=== PATIENT | female | born 1970 ===

== ENCOUNTER 2016-04-27 02:31 | Observation (INO) ==
--- NOTE | 2016-04-27 03:45 | Emergency Department Note ---
IBerna Emily, am scribing for, and in the presence of, Chico Puga MD 03: 30. Edd Kc Charles R, MD, personally performed the services described in this documentation, ascribed by Ameena Coronel in my presence, and it is both accurate and complete . Arrival - Arrival Chief Complaint: Extremity Problem Stated Complaint: swollen arm ED Nursing Triage Note: pt states after dialysis saturday left arm started swelling and is now very swollen and warm to touch. pt states it is very painful Mode of Arrival: Stretcher Limitations: No Limitations Source: Patient Time Seen by Provider: 04/27/16 02:54 - History of Present Illness HPI Narrative: Pt is a 45 y/o female who came to ED with c/o pain at graft site in left arm s/ p of accessed on Saturday, April 23, 2016, and worsened today. Pt notes Dr. Hauser did surgery in 2015. After accessing, she states she was using hot and cold compresses reduce pain and swelling. She describes the pain started when she felt a sharp, shooting pain and site has become more swollen since. Pt is limited her mobility of left arm due to pain. Onset (ago): day(s) Consistency: constant Severity: moderate Severity scale (1-10): 5 Quality: aching Allergies/Adverse Reactions: Allergies Allergy/AdvReac Type Severity Reaction Status Date / Time No Known Allergies Allergy Verified 12/22/15 10:49 Home Medications: Home Medications Medication Instructions Recorded Confirmed Type Metoclopramide Liquid [Reglan 10 mg PO ACHS #0 udcup 08/03/15 12/22/15 Rx Liquid] Pantoprazole Tab [Protonix Tab] 40 mg PO BID tablet 08/03/15 12/22/15 Rx Insulin Detemir [Levemir] 15 unit SUBCUT BEDTIME 09/05/15 12/22/15 History Calcium Acetate [Phoslo] 1,334 mg PO TID W/MEALS 09/07/15 12/22/15 History Carvedilol [Coreg] 6.25 mg PO BID 12/22/15 12/22/15 History HYDROcodone/ACETAMIN 7.5-325 1 tablet PO Q4H PRN #45 tablet 12/22/15 Rx [[place] 7.5-325] Review of System - Review of System 12 point system: reviewed and no additional remarkable complaints except as stated - Review of System Constitutional: Absent: fever Respiratory: Absent: respiratory distress Cardiovascular: Absent: chest pain Gastrointestinal: Absent: abdominal pain Musculoskeletal: Present: arm pain (graft pain in left arm; swollen, bruised). Absent: back pain, leg pain, neck pain Skin: Absent: rash Medical,Surgical,& Family Hx - Medical History Cardio: History of: Hypertension, Cardiovascular Problems (PT STATES ENLARGED HEART. DR ALVAREZ) Neurology: No history of: Seizures HEENT: History of: Eye Problem (GLASSES) Endocrine: History of: Diabetes Mellitus (IDDM) (LEVEMIR) No history of: Thyroid Disorder Respiratory: History of: Pneumonia (PAST HISTORY) Renal: History of: Dialysis (, [place], [place]), Renal Failure Gastrointestinal: History of: GERD Musculoskeletal: History of: Back/Neck Problems (BACK PAINS) Hematology: History of: Clotting Problems (LT KNEE ) Other: No history of: Cancer - Surgical History HEENT Surgeries: Surgical HX of: Eye Surgery (CATARACT SURGERY BILATERAL) Abdominal Surgeries: Surgical HX of: Cholecystectomy, EGD Reproductive Surgeries: Surgical HX of;: Section (X4) Orthopedic Surgeries: Surgical HX of;: Implanted Devices (PORT RIGHT SUBCLAVIAN) , Orthopedic Surgery (RT CARPAL TUNNEL) - Family History Family History: Reports;: Family Diabetes (dad,paternal grandma), Family Hypertension (mom) Denies;: Family Cancer, Family Heart Disease, Family Psychiatric Problems, Family Stroke - Social History Smoking Status: Never smoker Frequency of Alcohol Use: None Type of Drug Use: None Exam Vital Signs: Vital Signs Temperature 97.9 F 04/27/16 02:33 Pulse Rate 80 04/27/16 02:33 Respiratory Rate 16 04/27/16 02:33 Blood Pressure 192/81 04/27/16 02:33 O2 Sat by Pulse Oximetry 83 L 04/27/16 02:33 - General General appearance: alert, in no apparent distress - Head Head exam: Present: atraumatic, normocephalic - Eye Eye exam: Present: PERRL, EOMI - ENT ENT exam: Present: mucous membranes moist. Absent: mucous membranes dry - Neck Neck exam: Present: full ROM. Absent: tenderness - Chest Chest inspection: Present: symmetric chest wall rise. Absent: tenderness - Respiratory Respiratory exam: Present: normal lung sounds bilaterally. Absent: respiratory distress - Cardiovascular Cardiovascular exam: Present: regular rate, normal rhythm, normal heart sounds - Extremities Exam Extremities exam: Present: tenderness (hemotoma at graft site on left arm; good palpable pulses; swelling and ecchymosis and warm to touch from bicep to fistula ). Absent: full ROM (limited ROM due to pain), pedal edema - Neurological Exam Neurological exam: Present: alert, oriented X3, CN II-XII intact. Absent: motor sensory deficit - Psychiatric Psychiatric exam: Present: normal affect, normal mood - Skin Skin exam: Present: warm, dry Course - Consultations Consultation #1: Dr. Antonio III. will admit patient Time: 04:36 Results - Labs CBC & BMP: 04/27/16 03:34 04/27/16 03:34 Lab Results: I have reviewed the patients labs Labs: Laboratory Tests 04/27/16 03:34 RBC 2.70 L Hgb 8.8 L Hct 27.0 L Lymph % (Auto) 17.9 L Laboratory Tests 04/27/16 03:34 BUN 48 H Creatinine 6.50 H Glucose 251 H Alkaline Phosphatase 139 H Albumin 3.1 L Albumin/Globulin Ratio 0.9 L Laboratory Tests 04/27/16 03:34 BUN 48 H Creatinine 6.50 H Glucose 251 H Alkaline Phosphatase 139 H Albumin 3.1 L Albumin/Globulin Ratio 0.9 L Disposition Clinical Impression: Left upper extremity hematoma, Hemodialysis graft clot, ESRD (end stage renal disease) on dialysis Case discussed with: patient Disposition: Still a Patient Condition: Stable Time of Disposition: 04:51
[2016-04-27 03:49] LABS: Basophils % 0.3 % (0.0-0.8); Eosinophils # 0.2 10*3/uL (0.0-0.87); Hemoglobin 8.8 GM/DL (12.0-16.0); Immature Granulocytes % 0.3 %; Immature Granulocytes Absolute 0.03 #; Lymphocytes # 1.5 10*3/uL (1.4-4.0); Lymphocytes % 17.9 % (21.3-54.2); Mean Corpuscular HGB Conc 32.6 GM/DL (32-36); Mean Corpuscular Hemoglobin 33 PG (27-34); Mean Platelet Volume 10.6 FL (9.6-12.0); Monocytes # 0.5 10*3/uL (0.11-0.8); Neutrophils # 6.3 10*3/uL (1.4-7.4); Neutrophils % 73.5 % (38.7-73.9); Platelet Count 168 T/CUMM (130-400); Red Cell Distribution Width 15.2 % (9.3-17.3); White Blood Count 8.6 T/CUMM (4-12)
[2016-04-27 04:12] LABS: Albumin 3.1 G/DL (3.4-5.0); Bilirubin,Total 0.6 MG/DL (0.2-1.0); Calcium 8.5 MG/DL (8.5-10.1); Osmolality,Calculated 295.7 MOS/KG (273-304); Potassium 4.6 MMOL/L (3.5-5.1); Total Protein 6.4 G/DL (6.4-8.3)
[2016-04-27] MEDS ORDERED: HYDROmorphone 2 MG/1 ML VIAL IV STA (05:24)
[2016-04-27] MEDS ORDERED: HYDROmorphone 2 MG/1 ML VIAL ONE (05:26)
[2016-04-27] MEDS ORDERED: GLUCAGON 1 MG VIAL IM PRN (07:03)
[2016-04-27] MEDS ORDERED: DEXTROSE 50% 25 GM/50 ML VIAL IV PRN (07:03)
[2016-04-27] MEDS ORDERED: ACETAMINOPHEN 325 MG TABLET PO PRN (07:03)
[2016-04-27] MEDS: LACTATED RINGERS 1,000 ML IV SCH (07:35)
[2016-04-27] MEDS: PANTOPRAZOLE 40 MG VIAL IV SCH ×2 (07:35→08:00)
[2016-04-27] MEDS: ONDANSETRON 4 MG/2 ML VIAL IV PRN ×3 (07:36→22:22)
--- NOTE | 2016-04-27 08:04 | Ultrasound Report ---
US venous doppler UE LT Clinical Information: pain swelling Following left dialysis access placement approximately 5 months ago Comparison: None available Findings: There is a large echogenic collection within the left arm about the dialysis access site measuring up to 17.6 x 2.7 x 5.9 cm maximum dimension which is most compatible with a large hematoma. This compresses the adjacent vasculature. The jugular, subclavian, axillary veins appear patent. The mid and distal brachial vein appear patent. The proximal brachial vein is not seen. The cephalic vein is patent. There is reversed flow within the distal aspect of the graft which is of uncertain significance but may be related to significant progression from the overlying hematoma. Peak systolic velocities within the fistula are also minimal suggesting sluggish flow, also possibly due to compression symptoms from the overlying hematoma. Impression: Large hematoma within the left arm about the fistula compressing the underlying vasculature with decreased flow velocities within the fistula. No definite evidence of deep venous thrombosis within the remaining veins of the left upper extremity. PROCEDURE INTERPRETED AT [facility] DEPARTMENT OF RADIOLOGY Final Report Signed by: Kev Sheffield
[2016-04-27] MEDS ORDERED: CLINDAMYCIN INJ 900 MG in PREMIX 1 EACH IV ONE (08:49)
--- NOTE | 2016-04-27 08:56 | General Surg History&Physical ---
Assessment and Plan (1) Hematoma Status: Acute Assessment and plan: The patient's AV fistula was likely injured by the Access team resulting in a hematoma. This will require several weeks to heal before he can be used again. In order to get her dialysis access in the interim she will need a tunneled dialysis catheter. I have discussed this with the patient and I have discussed the risks, benefits, and alternatives of the operation. The expected outcomes have been reviewed. Patient would like to proceed with dialysis catheter placement and we will do this today. I did discuss the possibility of having to put in a groin catheter with the patient. Current Visit: Yes History of Present Illness Chief complaint: Hematoma left arm History of present illness: Ms. Howard is a 45 year old female who was on dialysis on Saturday and worked well but she developed a significant hematoma of her left arm after the dialysis needles were removed. She came to the ER and was admitted overnight to the surgical service. She still having a lot of pain in her arm but according to the nurses the hematoma has not been expanding the patient also says it is about the same. Home Medications Medication Instructions Recorded Confirmed Type Insulin Detemir [Levemir] 20 unit SUBCUT QAM 09/05/15 04/27/16 History Carvedilol [Coreg] 6.25 mg PO BID 12/22/15 04/27/16 History Calcium Carbonate Chew [Tums] 2 tablet PO TID W/MEALS 04/27/16 04/27/16 History cloNIDine TAB [Catapres Tab] 0.1 mg PO BID 04/27/16 04/27/16 History Allergies Allergy/AdvReac Type Severity Reaction Status Date / Time No Known Allergies Allergy Verified 12/22/15 10:49 Medical,Surgical,& Family Hx - Medical History Cardio: History of: Hypertension, Cardiovascular Problems (PT STATES ENLARGED HEART. DR ALVAREZ) Neurology: No history of: Seizures HEENT: History of: Eye Problem (GLASSES) Endocrine: History of: Diabetes Mellitus (IDDM) (LEVEMIR) No history of: Thyroid Disorder Respiratory: History of: Pneumonia (PAST HISTORY) Renal: History of: Dialysis (, [place], [place], [place]), Renal Failure Gastrointestinal: History of: GERD Musculoskeletal: History of: Back/Neck Problems (BACK PAINS) Hematology: History of: Clotting Problems (LT KNEE ) Other: No history of: Cancer - Surgical History HEENT Surgeries: Surgical HX of: Eye Surgery (CATARACT SURGERY BILATERAL) Abdominal Surgeries: Surgical HX of: Cholecystectomy, EGD Reproductive Surgeries: Surgical HX of;: Section (X4) Orthopedic Surgeries: Surgical HX of;: Implanted Devices (PORT RIGHT SUBCLAVIAN) , Orthopedic Surgery (RT CARPAL TUNNEL) - Family History Family History: Reports;: Family Diabetes (dad,paternal grandma), Family Hypertension (mom) Denies;: Family Cancer, Family Heart Disease, Family Psychiatric Problems, Family Stroke - Social History Smoking Status: Never smoker Frequency of Alcohol Use: None Type of Drug Use: None Exam - Constitutional Vitals: Period Temp Pulse Resp BP Sys/Vidal Pulse Ox Last 24 Hr 98.1 F 101 20 191/84 98 General appearance: no acute distress, over weight - Head Head exam: Present: normal inspection, normocephalic - Eye Eye exam: Present: EOMI Pupils: Present: SEVERO - ENT ENT exam: Present: normal exam Mouth exam: Present: normal external inspection, normal voice - Neck Neck exam: Present: normal inspection, trachea midline - Respiratory Respiratory exam: Present: clear to auscultation bilaterally. Absent: accessory muscle use, chest wall tenderness - Cardiovascular Cardiovascular exam: Present: RRR. Absent: systolic murmur, tachycardia - GI/Abdominal GI/Abdominal exam: Present: normal bowel sounds, soft. Absent: tenderness, rebound - Extremities Exam Extremities exam: Present: other (There is swelling and hematoma present in the entire upper arm on the left side. There is still a thrill in the fistula.) - Neurological Exam Neurological exam: Present: alert, oriented X3 Speech: Present: normal - Skin Skin exam: Present: normal color, warm - Constitutional Constitutional: Present: as per HPI - EENT Nose, mouth and throat: Present: as per HPI - Cardiovascular Cardiovascular: Present: as per HPI - Respiratory Respiratory: Present: as per HPI - Gastrointestinal Gastrointestinal: Present: as per HPI - Genitourinary Genitourinary: Present: as per HPI - Musculoskeletal Musculoskeletal: Present: as per HPI - Neurological Neurological: Present: as per HPI - Endocrine Endocrine: Present: as per HPI Hematologic/Lymphatic: Present: as per HPI Results - Labs CBC & BMP: 04/27/16 03:34 04/27/16 03:34
[2016-04-27] MEDS: cloNIDine 0.1 MG TABLET PO SCH ×2 (09:22→22:33)
[2016-04-27] MEDS: CARVEDILOL 6.25 MG TABLET PO SCH ×2 (09:23→22:33)
[2016-04-27] MEDS ORDERED: SODIUM CHLORIDE 0.9% 1,000 ML IV SCH (09:30)
[2016-04-27] MEDS: INSULIN GLARGINE 100 UNIT/ML SUBCUT SCH (09:32)
[2016-04-27] MEDS: INSULIN REGULAR 100 UNIT/ML SUBCUT SCH ×4 (09:32→22:38)
--- NOTE | 2016-04-27 09:34 | EKG Report ---
Stationary ECG Study [facility] Test Date: 04/27/2016 9:34:48 AM Pat Name: ERVIN BAIG Department: Room: 428 Gender: F [employer] Worker: KECIA : 1970 Requested by: Case Chowdhury Order Number: [id number] Reading MD: ANKUR GTZ Intervals [place] Rate: 68 P: 39 CO: 176 QRS: 59 QRSD: 90 T: 48 QT: 414 QTc: 431 Interpretive Statements SINUS RHYTHM MINOR NON-SPECIFIC ST-T ABNORMALITIES Electronically Signed On 04-30-16 06:28:18 CDT by ANKUR GTZ [email or web address]
[2016-04-27 10:05] LABS: INR 1.2; PT Patient Result 12.4 SECS
[2016-04-27] MEDS ORDERED: HEPARIN 5,000 UNIT/1 ML VIAL ONE (10:19)
[2016-04-27] MEDS ORDERED: BUPIVACAINE MPF 0.25% /EPI 30 ML VIAL ONE (10:19)
[2016-04-27] MEDS: SODIUM CHLORIDE 0.9% 250 ML IV SCH (10:31)
[2016-04-27] MEDS ORDERED: ONDANSETRON 4 MG/2 ML VIAL ONE (11:15)
--- NOTE | 2016-04-27 11:15 | Operative Note ---
Date of procedure: 04/27/16 Pre-op diagnosis: end-stage renal failure Post-op diagnosis: same Procedure: Preoperative diagnosis Renal failure with need for hemodialysis access Postoperative diagnosis Same Procedures performed 1. Right internal jugular vein tunneled hemodialysis catheter placement 2. Ultrasound guidance and interpretation of images 3. Fluoroscopic guidance and interpretation of images Findings The right internal jugular vein is compressible and it was accessed for hemodialysis access. The tip of the catheter was place in the right atrium. Patient tolerated procedure well and both ports worked well. Complications none apparent Specimen None Indications Renal failure with need for access for hemodialysis Description of procedure The patient was taken to the operating room and transferred to the operating table in the supine position. Pressure points are padded and SCDs placed lower extremity. Monitored anesthesia was administered and the neck was prepped and draped sterile fashion using chloride same. Preoperative antibiotics were administered and a timeout was performed. Ultrasound was used to identify the internal jugular vein and local anesthetic was infiltrated around the vein. Local anesthetic was also administered around the planned tract site down to the anterior chest wall below the clavicle. The vein was accessed on first stick and nonpulsatile venous blood was obtained. A wire was placed using Seldinger technique. An incision was made alongside the wire using a long blade scalpel and a separate incision below the clavicle was made with an 11 blade scalpel. A 19 cm catheter was tunneled from the chest incision into the neck wound and a dilator peel-away sheath was placed over the wire. The wire and dilator was removed and the catheter was placed to the peel-away sheath. The catheter was secured in place in the right atrium on fluoroscopic images. Both returned blood easily and were flushed with heparin. The catheter was secured in place using 3-0 nylon sutures and the neck incision was closed with 3 -0 nylon suture. Sterile dressings were applied. The patient was awakened from anesthesia and transferred to recovery. Postoperative plan Begin hemodialysis and obtained chest x-ray postop Implants: 19cm tunneled hemodialysis catheter Anesthesia: MAC, local Surgeon / Physician: Willie Hauser Estimated blood loss: minimal Specimens: none sent Condition: stable Disposition: PACU Results - Labs CBC & BMP: 04/27/16 03:34 04/27/16 03:34 Discharge Plan - Discharge Medications No Action Insulin Detemir [Levemir] 20 unit SUBCUT QAM Carvedilol [Coreg] 6.25 mg PO BID cloNIDine TAB [Catapres Tab] 0.1 mg PO BID Calcium Carbonate Chew [Tums] 2 tablet PO TID W/MEALS - Follow Up or Referral - Forms/Instructions
[2016-04-27] MEDS ORDERED: hydrALAZINE 20 MG/1 ML VIAL ONE (11:23)
[2016-04-27] MEDS ORDERED: ONDANSETRON 4 MG/2 ML VIAL IV PRN (11:28)
[2016-04-27] MEDS ORDERED: hydrALAZINE 20 MG/1 ML VIAL IV ONE (11:28)
[2016-04-27] MEDS ORDERED: fentaNYL 100 MCG/2 ML VIAL ONE (11:32)
[2016-04-27] MEDS ORDERED: MIDAZOLAM 2 MG/2 ML VIAL ONE (11:32)
--- NOTE | 2016-04-27 11:55 | XRay Report ---
Portable chest Date: 04/27/2016 Clinical history: Dialysis catheter placement Comparison: 04/27/2016 Technique: Portable AP supine chest Findings: Stable moderate cardiomegaly with the heart having a globular configuration. Insertion of right IJ venous dialysis catheter with tips in right atrium. No pneumothorax. Persistent diffuse parenchymal findings with small right pleural effusion. Stable mediastinum and osseous structures. Impression: Satisfactory insertion of right IJ venous dialysis catheter with tip in right atrium. No definite pneumothorax is identified on the supine film. Moderate cardiomegaly with a heart having a globular configuration which can be seen with cardiomyopathy or pericardial effusion. Mild CHF with minimal atelectasis and small right pleural effusion. PROCEDURE INTERPRETED AT [facility] DEPARTMENT OF RADIOLOGY Final Report Signed by: Dr. Chuyita Rosenberg
--- NOTE | 2016-04-27 13:07 | Anesthesia ---
Anesthesia Post OP - Post Ansesthetic Evaluation Patient seen in post op: Yes Resp: within normal limits CV: within normal limits Mental: within normal limits Temp: within normal limits [id number]: within normal limits Nausea and Vomiting: within normal limits Pain: within normal limits
[2016-04-27] MEDS: CALCIUM CARBONATE CHEW 500 MG TABLET PO SCH ×2 (13:55→17:12)
--- NOTE | 2016-04-27 15:28 | Nephrology Consult Note ---
History of Present Illness Chief complaint: End-stage renal disease in a patient admitted for hematoma of her AV shunt History of present illness: Ms. Howard is a 45 year old female with end-stage renal disease who dialyzes on a Saturday basis in [facility]. The patient was undergoing dialysis this past Saturday when she developed swelling in her left AV shunt. Patient was taken off of dialysis and at home she was applying cold compresses to her arm then yesterday the patient experienced some sharp pain in her arm and it started swelling again. She subsequently went to her local care provider and was transferred here for further evaluation and treatment. The patient is not on any blood thinning medicines. sHe does state that she has been having high blood pressure lately. Her dialysis access has been in place for several months now. ROS: Head -occasional headaches ENT - denies sore throat Lymphatics - denies lymphadenopathy Hematology - denies bleeding problems Heart - denies chest pain Lungs - denies shortness of breath Abdomen - denies abdominal pain Musculoskeletal - denies arthritis Skin - denies rash Neurology - denies stroke General -she has felt a little hot lately PE: General: in no acute distress Eyes: Pupils are round and reactive, conjunctivae are clear ENT: Nose is clear, O/P is benign Neck: Supple, no thyromegaly Lymphatics: No cervical, supraclavicular or axillary adenopathy Heart: Regular rate and rhythm, she has no lower extremity edema, her left arm is swollen with some darkish hue to the skin as well as a few purpura here and there. Lungs: Clear to auscultation anteriorly, chest expansion symmetric Abdomen: Soft, normoactive bowel sounds, no hepatomegaly Musculoskeletal: No joint erythema or effusions or joint asymmetry Skin: Normal turgor, normal hydration, no rash Neuro/Psych: Alert and cooperative with fair insight Home Medications Medication Instructions Recorded Confirmed Type Insulin Detemir [Levemir] 20 unit SUBCUT QAM 09/05/15 04/27/16 History Carvedilol [Coreg] 6.25 mg PO BID 12/22/15 04/27/16 History Calcium Carbonate Chew [Tums] 2 tablet PO TID W/MEALS 04/27/16 04/27/16 History cloNIDine TAB [Catapres Tab] 0.1 mg PO BID 04/27/16 04/27/16 History Allergies Allergy/AdvReac Type Severity Reaction Status Date / Time No Known Allergies Allergy Verified 12/22/15 10:49 Medical,Surgical,& Family Hx - Medical History Cardio: History of: Hypertension, Cardiovascular Problems (PT STATES ENLARGED HEART. DR ALVAREZ) Neurology: No history of: Seizures HEENT: History of: Eye Problem (GLASSES) Endocrine: History of: Diabetes Mellitus (IDDM) (LEVEMIR) No history of: Thyroid Disorder Respiratory: History of: Pneumonia (PAST HISTORY) Renal: History of: Dialysis (, [place], [place]), Renal Failure Gastrointestinal: History of: GERD Musculoskeletal: History of: Back/Neck Problems (BACK PAINS) Hematology: History of: Clotting Problems (LT KNEE ) Other: No history of: Cancer - Surgical History HEENT Surgeries: Surgical HX of: Eye Surgery (CATARACT SURGERY BILATERAL) Abdominal Surgeries: Surgical HX of: Cholecystectomy, EGD Reproductive Surgeries: Surgical HX of;: Section (X4) Orthopedic Surgeries: Surgical HX of;: Implanted Devices (PORT RIGHT SUBCLAVIAN) , Orthopedic Surgery (RT CARPAL TUNNEL) - Family History Family History: Reports;: Family Diabetes (dad,paternal grandma), Family Hypertension (mom) Denies;: Family Cancer, Family Heart Disease, Family Psychiatric Problems, Family Stroke - Social History Smoking Status: Never smoker Frequency of Alcohol Use: None Type of Drug Use: None Exam - Vital Signs Vital signs: Period Temp Pulse Resp BP Sys/Vidal Pulse Ox Last 24 Hr 97 F-98.1 F 65-101 16-20 172-223/84-112 95-100 Results - Labs CBC & BMP: 04/27/16 03:34 04/27/16 03:34 Assessment and Plan (1) Hypertension Status: Acute Assessment and plan: Patient's blood pressure has been going up lately, I am going to start her on 5 mg daily. Current Visit: Yes (2) ESRD (end stage renal disease) on dialysis Problem details: No indication for HD today. Status: Acute Assessment and plan: Patient has a tunneled catheter in place now, will plan on dialyzing her through that today. Her left arm shunt still has a bruit in place. Current Visit: Yes (3) Hematoma Status: Acute Assessment and plan: Management per Dr. Hauser Current Visit: Yes (4) Anemia Status: Acute Current Visit: No (5) Diabetes mellitus Status: Acute Assessment and plan: We will monitor with sliding scale Current Visit: No
[2016-04-27] MEDS: HYDROmorphone 2 MG/1 ML VIAL IV PRN ×2 (17:18→22:33)
[2016-04-27] MEDS: amLODIPine 5 MG TABLET PO SCH (22:32)
[2016-04-27] MEDS ORDERED: cloNIDine 0.1 MG TABLET PO PRN (23:57)
[2016-04-28] MEDS ORDERED: hydrALAZINE 20 MG/1 ML VIAL IV ONE (01:20)
[2016-04-28] MEDS ORDERED: CARVEDILOL 6.25 MG TABLET PO PRN (01:23)
[2016-04-28] MEDS ORDERED: cloNIDine 0.1 MG TABLET PO PRN (01:24)
[2016-04-28] MEDS: SODIUM CHLORIDE 0.9% 250 ML IV SCH ×2 (02:35→03:24)
[2016-04-28 05:24] LABS: Basophils % 0.4 % (0.0-0.8); Eosinophils # 0.1 10*3/uL (0.0-0.87); Eosinophils % 1.5 % (0.00-10.9); Hematocrit 28.2 VOL% (35.7-47.0); Hemoglobin 9.1 GM/DL (12.0-16.0); Immature Granulocytes % 0.4 %; Immature Granulocytes Absolute 0.03 #; Lymphocytes # 1.4 10*3/uL (1.4-4.0); Lymphocytes % 18.1 % (21.3-54.2); Mean Corpuscular HGB Conc 32.3 GM/DL (32-36); Mean Corpuscular Hemoglobin 33 PG (27-34); Mean Corpuscular Volume 102.2 FL (87-102); Mean Platelet Volume 10.5 FL (9.6-12.0); Monocytes # 0.4 10*3/uL (0.11-0.8); Monocytes % 5.1 % (1.7-12.7); Neutrophils # 5.8 10*3/uL (1.4-7.4); Neutrophils % 74.5 % (38.7-73.9); Platelet Count 157 T/CUMM (130-400); Red Blood Count 2.76 MC/CUMM (3.8-5.5); Red Cell Distribution Width 15.9 % (9.3-17.3); White Blood Count 7.8 T/CUMM (4-12)
[2016-04-28 05:39] LABS: Bilirubin,Total 0.8 MG/DL (0.2-1.0); Calcium 8.3 MG/DL (8.5-10.1); Magnesium 2.3 MG/DL (1.8-2.4); Osmolality,Calculated 289.1 MOS/KG (273-304); Potassium 4.4 MMOL/L (3.5-5.1); Total Protein 6.1 G/DL (6.4-8.3)
[2016-04-28] MEDS: LACTATED RINGERS 1,000 ML IV SCH (07:23)
[2016-04-28 08:17] VITALS: BP 169/78
[2016-04-28] MEDS: PANTOPRAZOLE 40 MG VIAL IV SCH (09:20)
[2016-04-28] MEDS: amLODIPine 5 MG TABLET PO SCH (09:21)
[2016-04-28] MEDS: CALCIUM CARBONATE CHEW 500 MG TABLET PO SCH (09:21)
[2016-04-28] MEDS: cloNIDine 0.1 MG TABLET PO SCH (09:21)
[2016-04-28] MEDS: CARVEDILOL 6.25 MG TABLET PO SCH (09:21)
[2016-04-28] MEDS: INSULIN GLARGINE 100 UNIT/ML SUBCUT SCH (09:21)
[2016-04-28] MEDS: INSULIN REGULAR 100 UNIT/ML SUBCUT SCH (09:44)
--- NOTE | 2016-04-28 10:59 | XRay Report ---
History: Shortness of breath Date: 04/28/2016 Study: Chest x-ray single view Comparison exam: Chest x-ray 04/27/2016 The right IJ central line is stable in position. There is continued cardiomegaly. The mediastinal contours are unchanged. The pulmonary vasculature is slightly prominent. There is some continued mild edema in the lower lung zones, though this is slightly improved. There is no new or worsening process. There is minimal bilateral pleural effusion which is the same or improved. Osseous structures are unchanged. Impression: Continued but improved CHF compared to the previous study PROCEDURE INTERPRETED AT [facility] DEPARTMENT OF RADIOLOGY Final Report Signed by: Dr. Mildred Card
--- NOTE | 2016-04-28 11:46 | Discharge Summary ---
Hospital Course - Hospital Course Hospital Course: This patient was admitted with hematoma of her arm access after dialysis on the left arm. She had a dialysis catheter placed and she had some blood pressure issues that were stabilized by her nephrology team. Her arm look better the next day and her pain was well-controlled. She was discharged home with plans for access through the dialysis catheter for the next 2 weeks and follow-up in clinic at that time to determine if her fistula is ready to start being use again. Diagnosis - Discharge Diagnosis (1) Hematoma Status: Acute Discharge Plan - Discharge Data Disposition: Disch To Home/Self Care Condition at Discharge: Stable Discharge Diet: advance to your usual diet Activity: resume usual activities as tolerated Hygiene: may shower Weight Bearing at Discharge: full weight bearing Driving: no restrictions Contact your physician if you experience:: fever over 101, Redness or swelling, Nausea/Vomiting, Shortness of breath, Bleeding, pain uncontrolled by pain medications - Discharge Medications New RX: HYDROcodone/ACETAMIN 7.5-325 [[place] 7.5-325] 1 tablet PO Q4H PRN #30 tablet PRN Reason: Pain Moderate (4-7) Continue RX: Insulin Detemir [Levemir] 20 unit SUBCUT QAM RX: Carvedilol [Coreg] 6.25 mg PO BID RX: cloNIDine TAB [Catapres Tab] 0.1 mg PO BID RX: Calcium Carbonate Chew [Tums] 2 tablet PO TID W/MEALS - Follow Up or Referral Follow Up: Willie Hauser MD [Physician] - 2 Weeks - Forms/Instructions Additional Discharge Instructions: The dialysis unit needs to use only the catheter until I see you back in clinic. Exam - Constitutional Vitals: Period Temp Pulse Resp BP Sys/Vidal Pulse Ox Last 24 Hr 96.6 F-98.4 F 61-83 16-20 146-225/71-104 95-100 General appearance: normal weight, no acute distress - Head Head exam: Present: normal inspection, normocephalic - Eye Eye exam: Present: EOMI Pupils: Present: SEVERO - ENT ENT exam: Present: normal exam - Neck Neck exam: Present: normal inspection - Respiratory Respiratory exam: Present: clear to auscultation bilaterally. Absent: accessory muscle use, chest wall tenderness - Cardiovascular Cardiovascular exam: Present: regular rate and rhythm. Absent: systolic murmur , tachycardia - GI/Abdominal GI/Abdominal exam: Present: soft. Absent: tenderness, rebound - Extremities Exam Extremities exam: Present: other (The left arm has a stable hematoma with a good thrill in the fistula still) - Neurological Exam Neurological exam: Present: alert, oriented X3 - Psychiatric Psychiatric exam: Present: normal affect, normal mood - Skin Skin exam: Present: normal color, warm Discharge Results Labs on day of discharge: Labs from last 24 hours 04/28/16 04/28/16 04/28/16 06:41 05:07 05:07 WBC 7.8 RBC 2.76 L Hgb 9.1 L Hct 28.2 L MCV 102.2 H MCH 33 MCHC 32.3 RDW 15.9 Plt Count 157 MPV 10.5 Neut % (Auto) 74.5 H Lymph % (Auto) 18.1 L [place] % (Auto) 5.1 Eos % (Auto) 1.5 Baso % (Auto) 0.4 Neut # (Auto) 5.8 Lymph # (Auto) 1.4 [place] # (Auto) 0.4 Eos # (Auto) 0.1 Baso # (Auto) 0.0 Immature Gran % 0.4 Nucleated RBC % 0.0 Immature Gran # 0.03 Nucleated RBCs # 0.00 Sodium 142 Potassium 4.4 Chloride 103 Carbon Dioxide 25 Anion Gap 18.4 H BUN 26 H Creatinine 4.40 H GFR Calculation 12 BUN/Creatinine Ratio 5.00 L Glucose 131 H POC Glucose 137 H Calculated Osmolality 289.1 Calcium 8.3 L Magnesium 2.3 Total Bilirubin 0.80 AST 14 ALT 29 Alkaline Phosphatase 106 Total Protein 6.1 L Albumin 3.0 L Globulin 3.1 Albumin/Globulin Ratio 0.9 L 04/27/16 04/27/16 04/27/16 22:36 18:24 12:26 WBC RBC Hgb Hct MCV MCH MCHC RDW Plt Count MPV Neut % (Auto) Lymph % (Auto) [place] % (Auto) Eos % (Auto) Baso % (Auto) Neut # (Auto) Lymph # (Auto) [place] # (Auto) Eos # (Auto) Baso # (Auto) Immature Gran % Nucleated RBC % Immature Gran # Nucleated RBCs # Sodium Potassium Chloride Carbon Dioxide Anion Gap BUN Creatinine GFR Calculation BUN/Creatinine Ratio Glucose POC Glucose 121 H 144 H 293 H Calculated Osmolality Calcium Magnesium Total Bilirubin AST ALT Alkaline Phosphatase Total Protein Albumin Globulin Albumin/Globulin Ratio DS: Provider Date of admission: 04/27/16 04:52 Primary care physician: Es Bean MD Attending physician on admission: Emiliano Antonio III., Consults: 04/27/16 07:03 Consult to Physician [CONS] Routine Comment: Dialysis Consulting Provider: Carlitos Newton Consulting Provider Notified: Yes When should Consulting Provider be notified: In am Consult to Specialist Group: Nephrology When should Consulting Provider be notified: Now Person Notified: RONA Date Notified: 04/27/16 Time Notified: 08:42 04/27/16 07:14 Consult to Pharmacy [CONS] Routine Reason for Pharmacy Consult: Adjust Meds Renal Funct 04/27/16 08:52 Consult to Anesthesiology [CONS] Routine Consulting Provider: Reason for Anesthesiology: Pre-op Clearance Discharging clinician: Willie Hauser MD Expected date of discharge: 04/28/16
== END 2016-04-28 13:10 | disposition home or self-care (01) | DRG 314 ==
LOC: EDUNIT# → EDBD → N.ED 02:31 → N.EDINP 04:52 → INTOOBSV 04:52 → N.4E 06:30
PROVIDERS: ADMIT Surgery; ATTEND Surgery

== ENCOUNTER 2017-07-13 19:26 | Inpatient (IN) ==
[2017-07-13] MEDS ORDERED: PROMETHAZINE 25 MG/1 ML VIAL IM PRN (21:48)
[2017-07-13] MEDS ORDERED: GLUCAGON 1 MG VIAL IM PRN (21:48)
[2017-07-13] MEDS ORDERED: DEXTROSE 50% 25 GM/50 ML VIAL IV PRN (21:48)
[2017-07-13] MEDS ORDERED: GENTAMICIN INJ 80 MG in PREMIX 1 EACH IV ONE (22:30)
[2017-07-13] MEDS ORDERED: VANCOMYCIN INJ 1,000 MG in SODIUM CHLORIDE 0.9% 250 ML IV ONE (23:00)
[2017-07-13] MEDS: INSULIN REGULAR 100 UNIT/ML SUBCUT SCH (23:32)
[2017-07-13] MEDS: cloNIDine 0.1 MG TABLET PO SCH (23:33)
[2017-07-14] MEDS ORDERED: FAMOTIDINE 20 MG TABLET PO ONE (07:51)
[2017-07-14] MEDS ORDERED: DIAZEPAM 5 MG TABLET PO ONE (07:51)
[2017-07-14 09:18] LABS: Basophils # 0.1 10*3/uL (0.0-0.2); Basophils % 0.8 % (0.0-0.8); Eosinophils # 0.3 10*3/uL (0.0-0.87); Eosinophils % 2.9 % (0.00-10.9); Hematocrit 39.8 VOL% (35.7-47.0); Hemoglobin 13.2 GM/DL (12.0-16.0); Immature Granulocytes % 0.6 %; Immature Granulocytes Absolute 0.06 #; Lymphocytes # 0.7 10*3/uL (1.4-4.0); Lymphocytes % 7.3 % (21.3-54.2); Mean Corpuscular HGB Conc 33.2 GM/DL (32-36); Mean Corpuscular Hemoglobin 34 PG (27-34); Mean Platelet Volume 9.7 FL (9.6-12.0); Monocytes # 0.7 10*3/uL (0.11-0.8); Monocytes % 6.6 % (1.7-12.7); Neutrophils % 81.8 % (38.7-73.9); Platelet Count 405 T/CUMM (130-400); Red Blood Count 3.94 MC/CUMM (3.8-5.5); Red Cell Distribution Width 12.9 % (9.3-17.3); White Blood Count 9.8 T/CUMM (4-12)
[2017-07-14] MEDS: INSULIN REGULAR 100 UNIT/ML SUBCUT SCH ×4 (09:34→22:05)
[2017-07-14 09:44] LABS: Calcium 7.5 MG/DL (8.5-10.1); Potassium 3.7 MMOL/L (3.5-5.1)
[2017-07-14] MEDS: PANTOPRAZOLE 40 MG TABLET PO SCH (09:45)
[2017-07-14] MEDS: CALCIUM CARBONATE CHEW 500 MG TABLET PO SCH ×3 (09:45→16:21)
[2017-07-14] MEDS: amLODIPine 10 MG TABLET PO SCH (09:51)
[2017-07-14] MEDS ORDERED: PROPOFOL 200 MG/20 ML VIAL IV ONE (11:09)
[2017-07-14] MEDS ORDERED: MIDAZOLAM 2 MG/2 ML VIAL ONE (11:09)
[2017-07-14] MEDS ORDERED: fentaNYL 100 MCG/2 ML VIAL ONE (11:09)
[2017-07-14 12:20] LABS: % Iron Saturation 40.7 % (18-50)
[2017-07-14 13:34] LABS: Parathyroid Hormone Intact 328.2 PG/ML (18.4-80.1)
[2017-07-14] MEDS: cloNIDine 0.1 MG TABLET PO SCH (22:14)
[2017-07-15 06:49] LABS: Basophils # 0.1 10*3/uL (0.0-0.2); Basophils % 1.1 % (0.0-0.8); Eosinophils # 0.4 10*3/uL (0.0-0.87); Eosinophils % 4.2 % (0.00-10.9); Hemoglobin 12.2 GM/DL (12.0-16.0); Immature Granulocytes % 0.6 %; Immature Granulocytes Absolute 0.05 #; Lymphocytes # 0.9 10*3/uL (1.4-4.0); Lymphocytes % 10.1 % (21.3-54.2); Mean Corpuscular HGB Conc 32.1 GM/DL (32-36); Mean Corpuscular Hemoglobin 33 PG (27-34); Mean Corpuscular Volume 103.5 FL (87-102); Mean Platelet Volume 9.5 FL (9.6-12.0); Monocytes # 0.7 10*3/uL (0.11-0.8); Monocytes % 8.1 % (1.7-12.7); Neutrophils # 6.4 10*3/uL (1.4-7.4); Neutrophils % 75.9 % (38.7-73.9); Platelet Count 368 T/CUMM (130-400); Red Blood Count 3.67 MC/CUMM (3.8-5.5); Red Cell Distribution Width 12.8 % (9.3-17.3); White Blood Count 8.4 T/CUMM (4-12)
[2017-07-15 07:14] LABS: Albumin 1.6 G/DL (3.4-5.0); Calcium 7.3 MG/DL (8.5-10.1); Potassium 3.9 MMOL/L (3.5-5.1)
[2017-07-15] MEDS: INSULIN REGULAR 100 UNIT/ML SUBCUT SCH ×4 (07:45→21:23)
[2017-07-15] MEDS: amLODIPine 10 MG TABLET PO SCH (08:32)
[2017-07-15] MEDS: CALCIUM CARBONATE CHEW 500 MG TABLET PO SCH ×3 (08:33→18:51)
[2017-07-15] MEDS: MORPHINE 4 MG/1 ML VIAL IV PRN ×2 (08:33→22:36)
[2017-07-15] MEDS: PANTOPRAZOLE 40 MG TABLET PO SCH (08:33)
[2017-07-15] MEDS: CALCITRIOL 0.25 MCG CAPSULE PO SCH (09:40)
[2017-07-15] MEDS: cloNIDine 0.1 MG TABLET PO SCH ×3 (09:40→20:31)
[2017-07-15] MEDS ORDERED: VANCOMYCIN INJ 750 MG in SODIUM CHLORIDE 0.9% 250 ML IV PRN (15:20)
[2017-07-15] MEDS ORDERED: GENTAMICIN INJ 120 MG in PREMIX 1 EACH IV PRN (15:21)
[2017-07-15] MEDS ORDERED: VANCOMYCIN INJ 1,000 MG in SODIUM CHLORIDE 0.9% 250 ML IV ONE (16:00)
[2017-07-15] MEDS: CLINDAMYCIN INJ 600 MG in PREMIX 1 EACH IV SCH ×2 (16:49→22:37)
[2017-07-15] MEDS ORDERED: GENTAMICIN INJ 160 MG in SODIUM CHLORIDE 0.9% 100 ML IV ONE (17:00)
[2017-07-16] MEDS: ONDANSETRON 4 MG/2 ML VIAL IV PRN (04:41)
[2017-07-16 05:38] LABS: Basophils # 0.1 10*3/uL (0.0-0.2); Basophils % 0.7 % (0.0-0.8); Eosinophils # 0.4 10*3/uL (0.0-0.87); Hematocrit 38.1 VOL% (35.7-47.0); Hemoglobin 12.6 GM/DL (12.0-16.0); Immature Granulocytes % 0.6 %; Immature Granulocytes Absolute 0.05 #; Lymphocytes # 0.9 10*3/uL (1.4-4.0); Lymphocytes % 10.6 % (21.3-54.2); Mean Corpuscular HGB Conc 33.1 GM/DL (32-36); Mean Corpuscular Hemoglobin 33 PG (27-34); Mean Corpuscular Volume 100.8 FL (87-102); Mean Platelet Volume 9.6 FL (9.6-12.0); Monocytes # 0.7 10*3/uL (0.11-0.8); Monocytes % 8.8 % (1.7-12.7); Neutrophils # 6.2 10*3/uL (1.4-7.4); Neutrophils % 74.3 % (38.7-73.9); Platelet Count 408 T/CUMM (130-400); Red Blood Count 3.78 MC/CUMM (3.8-5.5); Red Cell Distribution Width 12.8 % (9.3-17.3); White Blood Count 8.3 T/CUMM (4-12)
[2017-07-16 05:51] LABS: Albumin 1.6 G/DL (3.4-5.0); Calcium 7.7 MG/DL (8.5-10.1); Osmolality,Calculated 283.1 MOS/KG (273-304); Potassium 3.9 MMOL/L (3.5-5.1)
[2017-07-16] MEDS: CALCITRIOL 0.25 MCG CAPSULE PO SCH (09:23)
[2017-07-16] MEDS: CALCIUM CARBONATE CHEW 500 MG TABLET PO SCH ×3 (09:23→17:31)
[2017-07-16] MEDS: amLODIPine 10 MG TABLET PO SCH (09:23)
[2017-07-16] MEDS: PANTOPRAZOLE 40 MG TABLET PO SCH (09:23)
[2017-07-16] MEDS: cloNIDine 0.1 MG TABLET PO SCH ×3 (09:23→20:21)
[2017-07-16] MEDS: INSULIN REGULAR 100 UNIT/ML SUBCUT SCH ×4 (09:23→20:22)
[2017-07-16] MEDS: CLINDAMYCIN INJ 600 MG in PREMIX 1 EACH IV SCH ×3 (09:24→23:15)
[2017-07-16] MEDS: SODIUM HYPOCHLORITE 0.25% IRRIG 473 ML BOTTLE TOP SCH (16:40)
[2017-07-17 07:53] LABS: Basophils # 0.1 10*3/uL (0.0-0.2); Basophils % 0.7 % (0.0-0.8); Eosinophils # 0.5 10*3/uL (0.0-0.87); Eosinophils % 6.2 % (0.00-10.9); Hemoglobin 11.3 GM/DL (12.0-16.0); Immature Granulocytes % 0.6 %; Immature Granulocytes Absolute 0.05 #; Lymphocytes # 0.8 10*3/uL (1.4-4.0); Lymphocytes % 9.6 % (21.3-54.2); Mean Corpuscular HGB Conc 32.3 GM/DL (32-36); Mean Corpuscular Hemoglobin 33 PG (27-34); Mean Corpuscular Volume 102.3 FL (87-102); Mean Platelet Volume 9.4 FL (9.6-12.0); Monocytes # 0.7 10*3/uL (0.11-0.8); Monocytes % 8.3 % (1.7-12.7); Neutrophils % 74.6 % (38.7-73.9); Platelet Count 354 T/CUMM (130-400); Red Blood Count 3.42 MC/CUMM (3.8-5.5); Red Cell Distribution Width 12.9 % (9.3-17.3); White Blood Count 8.1 T/CUMM (4-12)
[2017-07-17 08:29] LABS: Albumin 1.5 G/DL (3.4-5.0); Calcium 7.3 MG/DL (8.5-10.1); Gentamicin,Random 3.4 UG/ML; Osmolality,Calculated 284.2 MOS/KG (273-304); Vancomycin,Random 17.9 UG/ML
[2017-07-17] MEDS: amLODIPine 10 MG TABLET PO SCH (09:00)
[2017-07-17] MEDS: CALCIUM CARBONATE CHEW 500 MG TABLET PO SCH ×3 (09:00→16:31)
[2017-07-17] MEDS: CALCITRIOL 0.25 MCG CAPSULE PO SCH (09:00)
[2017-07-17] MEDS: cloNIDine 0.1 MG TABLET PO SCH ×3 (09:00→21:27)
[2017-07-17] MEDS: CLINDAMYCIN INJ 600 MG in PREMIX 1 EACH IV SCH ×3 (09:01→23:54)
[2017-07-17] MEDS: PANTOPRAZOLE 40 MG TABLET PO SCH (09:01)
[2017-07-17] MEDS: INSULIN REGULAR 100 UNIT/ML SUBCUT SCH ×4 (09:01→21:33)
[2017-07-17] MEDS: SODIUM HYPOCHLORITE 0.25% IRRIG 473 ML BOTTLE TOP SCH (09:55)
[2017-07-17] MEDS ORDERED: VANCOMYCIN INJ 750 MG in SODIUM CHLORIDE 0.9% 250 ML IV ONE (15:00)
[2017-07-18] MEDS: ONDANSETRON 4 MG/2 ML VIAL IV PRN (03:25)
[2017-07-18] MEDS: CLINDAMYCIN INJ 600 MG in PREMIX 1 EACH IV SCH ×2 (08:13→16:43)
[2017-07-18] MEDS: CALCIUM CARBONATE CHEW 500 MG TABLET PO SCH ×3 (08:28→16:43)
[2017-07-18] MEDS: cloNIDine 0.1 MG TABLET PO SCH ×3 (08:28→20:58)
[2017-07-18] MEDS: amLODIPine 10 MG TABLET PO SCH (08:28)
[2017-07-18] MEDS: PANTOPRAZOLE 40 MG TABLET PO SCH (08:29)
[2017-07-18] MEDS: CALCITRIOL 0.25 MCG CAPSULE PO SCH (08:29)
[2017-07-18] MEDS ORDERED: MIDAZOLAM 2 MG/2 ML VIAL IV ONE (08:34)
[2017-07-18] MEDS ORDERED: fentaNYL 100 MCG/2 ML VIAL IV ONE (08:34)
[2017-07-18] MEDS ORDERED: GENTAMICIN INJ 120 MG in PREMIX 1 EACH IV ONE (09:00)
[2017-07-18] MEDS ORDERED: SODIUM CHLORIDE 0.45% 1,000 ML IV SCH (09:30)
[2017-07-18] MEDS: INSULIN REGULAR 100 UNIT/ML SUBCUT SCH ×4 (09:55→21:02)
[2017-07-18] MEDS ORDERED: DIAZEPAM 5 MG TABLET PO ONE (10:00)
[2017-07-18] MEDS: SODIUM HYPOCHLORITE 0.25% IRRIG 473 ML BOTTLE TOP SCH (10:45)
[2017-07-18] MEDS ORDERED: HEPARIN/NACL 0.9% 2 UNITS/ML 3,000 ML IV ONE (12:32)
[2017-07-18] MEDS ORDERED: fentaNYL 100 MCG/2 ML VIAL ONE (13:48)
[2017-07-18] MEDS ORDERED: MIDAZOLAM 2 MG/2 ML VIAL ONE (13:48)
[2017-07-18] MEDS ORDERED: HEPARIN 5,000 UNIT/1 ML VIAL ONE (14:32)
[2017-07-18] MEDS ORDERED: HEPARIN 5,000 UNIT/1 ML VIAL IV ONE ×2 (14:35→15:45)
[2017-07-18] MEDS ORDERED: NITROGLYCERIN DRIP 50 MG/250 ML BOTTLE IV ONE (15:31)
[2017-07-18] MEDS ORDERED: HEPARIN 1,000 UNIT/1 ML VIAL ONE (15:40)
[2017-07-18] MEDS: CLOPIDOGREL 75 MG TABLET PO SCH (18:47)
[2017-07-18] MEDS: MORPHINE 4 MG/1 ML VIAL IV PRN (21:03)
[2017-07-19] MEDS: CLINDAMYCIN INJ 600 MG in PREMIX 1 EACH IV SCH ×4 (00:58→22:49)
[2017-07-19 06:47] LABS: Basophils # 0.1 10*3/uL (0.0-0.2); Basophils % 0.7 % (0.0-0.8); Eosinophils # 0.7 10*3/uL (0.0-0.87); Eosinophils % 8.3 % (0.00-10.9); Hematocrit 38.3 VOL% (35.7-47.0); Hemoglobin 12.5 GM/DL (12.0-16.0); Immature Granulocytes % 0.8 %; Immature Granulocytes Absolute 0.07 #; Lymphocytes # 0.8 10*3/uL (1.4-4.0); Mean Corpuscular HGB Conc 32.6 GM/DL (32-36); Mean Corpuscular Hemoglobin 33 PG (27-34); Mean Corpuscular Volume 102.1 FL (87-102); Mean Platelet Volume 9.2 FL (9.6-12.0); Monocytes # 0.7 10*3/uL (0.11-0.8); Monocytes % 8.7 % (1.7-12.7); Neutrophils % 71.5 % (38.7-73.9); Platelet Count 395 T/CUMM (130-400); Red Blood Count 3.75 MC/CUMM (3.8-5.5); Red Cell Distribution Width 12.7 % (9.3-17.3); White Blood Count 8.3 T/CUMM (4-12)
[2017-07-19 07:11] LABS: Albumin 1.6 G/DL (3.4-5.0); Calcium 7.5 MG/DL (8.5-10.1); Osmolality,Calculated 276.5 MOS/KG (273-304); Potassium 4.7 MMOL/L (3.5-5.1)
[2017-07-19] MEDS: CALCITRIOL 0.25 MCG CAPSULE PO SCH (08:02)
[2017-07-19] MEDS: cloNIDine 0.1 MG TABLET PO SCH ×3 (08:03→21:54)
[2017-07-19] MEDS: CLOPIDOGREL 75 MG TABLET PO SCH (08:03)
[2017-07-19] MEDS: ONDANSETRON 4 MG/2 ML VIAL IV PRN (08:03)
[2017-07-19] MEDS: CALCIUM CARBONATE CHEW 500 MG TABLET PO SCH ×3 (08:03→16:06)
[2017-07-19] MEDS: amLODIPine 10 MG TABLET PO SCH (08:03)
[2017-07-19] MEDS: PANTOPRAZOLE 40 MG TABLET PO SCH (08:03)
[2017-07-19] MEDS: INSULIN REGULAR 100 UNIT/ML SUBCUT SCH ×4 (08:04→21:54)
[2017-07-19] MEDS: SODIUM HYPOCHLORITE 0.25% IRRIG 473 ML BOTTLE TOP SCH (19:21)
[2017-07-20 04:54] LABS: Basophils # 0.1 10*3/uL (0.0-0.2); Basophils % 0.9 % (0.0-0.8); Eosinophils # 0.6 10*3/uL (0.0-0.87); Hematocrit 37.3 VOL% (35.7-47.0); Hemoglobin 11.9 GM/DL (12.0-16.0); Immature Granulocytes % 1.4 %; Immature Granulocytes Absolute 0.12 #; Lymphocytes # 0.7 10*3/uL (1.4-4.0); Mean Corpuscular HGB Conc 31.9 GM/DL (32-36); Mean Corpuscular Hemoglobin 34 PG (27-34); Mean Corpuscular Volume 105.4 FL (87-102); Monocytes # 0.9 10*3/uL (0.11-0.8); Monocytes % 10.1 % (1.7-12.7); Neutrophils # 6.3 10*3/uL (1.4-7.4); Neutrophils % 72.6 % (38.7-73.9); Platelet Count 376 T/CUMM (130-400); Red Blood Count 3.54 MC/CUMM (3.8-5.5); Red Cell Distribution Width 12.9 % (9.3-17.3); White Blood Count 8.7 T/CUMM (4-12)
[2017-07-20 05:15] LABS: Albumin 1.4 G/DL (3.4-5.0); Calcium 7.6 MG/DL (8.5-10.1); Osmolality,Calculated 277.5 MOS/KG (273-304); Potassium 3.9 MMOL/L (3.5-5.1)
[2017-07-20] MEDS: CLINDAMYCIN INJ 600 MG in PREMIX 1 EACH IV SCH ×3 (06:31→23:20)
[2017-07-20] MEDS ORDERED: VANCOMYCIN INJ 750 MG in SODIUM CHLORIDE 0.9% 250 ML IV ONE (09:00)
[2017-07-20] MEDS: CLOPIDOGREL 75 MG TABLET PO SCH (10:09)
[2017-07-20] MEDS: CALCIUM CARBONATE CHEW 500 MG TABLET PO SCH ×3 (10:09→15:45)
[2017-07-20] MEDS: amLODIPine 10 MG TABLET PO SCH (10:09)
[2017-07-20] MEDS: cloNIDine 0.1 MG TABLET PO SCH ×3 (10:12→20:41)
[2017-07-20] MEDS: ACETAMINOPHEN 325 MG TABLET PO PRN (10:12)
[2017-07-20] MEDS: INSULIN REGULAR 100 UNIT/ML SUBCUT SCH ×4 (10:12→20:42)
[2017-07-20] MEDS: PANTOPRAZOLE 40 MG TABLET PO SCH (10:12)
[2017-07-20] MEDS: CALCITRIOL 0.25 MCG CAPSULE PO SCH (10:13)
[2017-07-20] MEDS: SODIUM HYPOCHLORITE 0.25% IRRIG 473 ML BOTTLE TOP SCH (10:13)
[2017-07-21] MEDS: ACETAMINOPHEN 325 MG TABLET PO PRN (02:55)
[2017-07-21 04:00] LABS: Basophils # 0.1 10*3/uL (0.0-0.2); Basophils % 0.5 % (0.0-0.8); Eosinophils # 0.7 10*3/uL (0.0-0.87); Eosinophils % 7.7 % (0.00-10.9); Hemoglobin 11.4 GM/DL (12.0-16.0); Immature Granulocytes % 1.2 %; Immature Granulocytes Absolute 0.11 #; Lymphocytes # 0.7 10*3/uL (1.4-4.0); Lymphocytes % 7.2 % (21.3-54.2); Mean Corpuscular HGB Conc 33.5 GM/DL (32-36); Mean Corpuscular Hemoglobin 34 PG (27-34); Monocytes # 0.9 10*3/uL (0.11-0.8); Monocytes % 9.2 % (1.7-12.7); Neutrophils # 6.9 10*3/uL (1.4-7.4); Neutrophils % 74.2 % (38.7-73.9); Platelet Count 368 T/CUMM (130-400); Red Cell Distribution Width 12.7 % (9.3-17.3); White Blood Count 9.3 T/CUMM (4-12)
[2017-07-21 04:28] LABS: Albumin 1.4 G/DL (3.4-5.0); Calcium 7.7 MG/DL (8.5-10.1); Osmolality,Calculated 274.5 MOS/KG (273-304); Potassium 3.3 MMOL/L (3.5-5.1)
[2017-07-21] MEDS: CLINDAMYCIN INJ 600 MG in PREMIX 1 EACH IV SCH ×3 (06:30→23:29)
[2017-07-21] MEDS: CALCITRIOL 0.25 MCG CAPSULE PO SCH (08:26)
[2017-07-21] MEDS: amLODIPine 10 MG TABLET PO SCH (08:26)
[2017-07-21] MEDS: CALCIUM CARBONATE CHEW 500 MG TABLET PO SCH ×3 (08:26→17:54)
[2017-07-21] MEDS: cloNIDine 0.1 MG TABLET PO SCH ×3 (08:26→20:39)
[2017-07-21] MEDS: PANTOPRAZOLE 40 MG TABLET PO SCH (08:27)
[2017-07-21] MEDS: CLOPIDOGREL 75 MG TABLET PO SCH (08:27)
[2017-07-21] MEDS: INSULIN REGULAR 100 UNIT/ML SUBCUT SCH ×4 (08:27→20:40)
[2017-07-21] MEDS ORDERED: GENTAMICIN INJ 120 MG in PREMIX 1 EACH IV ONE (12:00)
[2017-07-21] MEDS: SODIUM HYPOCHLORITE 0.25% IRRIG 473 ML BOTTLE TOP SCH (12:05)
[2017-07-22] MEDS: CALCIUM CARBONATE CHEW 500 MG TABLET PO SCH ×2 (09:41→13:49)
[2017-07-22] MEDS: CALCITRIOL 0.25 MCG CAPSULE PO SCH (09:42)
[2017-07-22] MEDS: amLODIPine 10 MG TABLET PO SCH (09:42)
[2017-07-22] MEDS: CLINDAMYCIN INJ 600 MG in PREMIX 1 EACH IV SCH (09:42)
[2017-07-22] MEDS: CLOPIDOGREL 75 MG TABLET PO SCH (09:42)
[2017-07-22] MEDS: PANTOPRAZOLE 40 MG TABLET PO SCH (09:42)
[2017-07-22] MEDS: cloNIDine 0.1 MG TABLET PO SCH (09:42)
[2017-07-22] MEDS: INSULIN REGULAR 100 UNIT/ML SUBCUT SCH ×2 (10:11→13:49)
[2017-07-22 12:19] VITALS: BP 130/78
[2017-07-23] MEDS ORDERED: VANCOMYCIN INJ 750 MG in SODIUM CHLORIDE 0.9% 250 ML IV ONE (09:00)
== END 2017-07-22 15:35 | disposition home or self-care (01) | DRG 252 ==
LOC: EDBD → EDUNIT# → N.ED 19:26 → N.EDINP 20:23 → N.3E 22:03
PROVIDERS: ADMIT Surgery; ATTEND Surgery

== ENCOUNTER 2017-08-05 13:29 | Inpatient (IN) ==
[2017-08-05] MEDS ORDERED: ACETAMINOPHEN 325 MG TABLET PO PRN (13:51)
[2017-08-05] MEDS ORDERED: DEXTROSE 50% 25 GM/50 ML VIAL IV PRN (13:56)
[2017-08-05] MEDS ORDERED: GLUCAGON 1 MG VIAL IM PRN (13:56)
[2017-08-05] MEDS: HEPARIN 5,000 UNIT/1 ML VIAL SUBCUT SCH ×2 (16:25→22:31)
[2017-08-05] MEDS: INSULIN LISPRO 100 UNIT/ML SUBCUT SCH ×2 (16:34→20:44)
[2017-08-05] MEDS: CLINDAMYCIN INJ 600 MG in PREMIX 1 EACH IV SCH ×2 (16:49→22:31)
[2017-08-05 17:00] LABS: Basophils # 0.1 10*3/uL (0.0-0.2); Basophils % 0.8 % (0.0-0.8); Eosinophils # 0.6 10*3/uL (0.0-0.87); Eosinophils % 5.6 % (0.00-10.9); Hematocrit 38.1 VOL% (35.7-47.0); Hemoglobin 12.2 GM/DL (12.0-16.0); Immature Granulocytes Absolute 0.11 #; Lymphocytes % 8.7 % (21.3-54.2); Mean Corpuscular Hemoglobin 33 PG (27-34); Mean Corpuscular Volume 101.9 FL (87-102); Monocytes # 0.9 10*3/uL (0.11-0.8); Monocytes % 7.7 % (1.7-12.7); Neutrophils # 8.4 10*3/uL (1.4-7.4); Neutrophils % 76.2 % (38.7-73.9); Platelet Count 409 T/CUMM (130-400); Red Blood Count 3.74 MC/CUMM (3.8-5.5); Red Cell Distribution Width 13.4 % (9.3-17.3)
[2017-08-05 17:34] LABS: Alanine Aminotransferase 33 U/L (13-56); Albumin 2.1 G/DL (3.4-5.0); Alkaline Phosphatase 155 U/L (45-117); Aspartate Amino Transferase 21 U/L (0-37); Bilirubin,Total < 0.39 MG/DL (0.2-1.0); Blood Urea Nitrogen 53 MG/DL (7-18); Calcium 8.9 MG/DL (8.5-10.1); Glucose 182 MG/DL (74-106); Osmolality,Calculated 288.1 MOS/KG (273-304); Potassium 3.8 MMOL/L (3.5-5.1); Sodium 135 MMOL/L (136-145); Total Protein 6.9 G/DL (6.4-8.3)
[2017-08-05] MEDS: PIPERACILLIN/TAZOBACTAM 3,375 MG in SODIUM CHLORIDE 0.9% 100 ML IV SCH (18:04)
[2017-08-05] MEDS: CALCIUM CARBONATE CHEW 500 MG TABLET PO SCH (18:05)
[2017-08-05] MEDS: cloNIDine 0.1 MG TABLET PO SCH (20:39)
[2017-08-05] MEDS: MORPHINE 4 MG/1 ML VIAL IV PRN (21:58)
[2017-08-06] MEDS: PIPERACILLIN/TAZOBACTAM 3,375 MG in SODIUM CHLORIDE 0.9% 100 ML IV SCH ×2 (03:50→19:34)
[2017-08-06] MEDS: CLINDAMYCIN INJ 600 MG in PREMIX 1 EACH IV SCH ×3 (05:57→22:52)
[2017-08-06] MEDS: HEPARIN 5,000 UNIT/1 ML VIAL SUBCUT SCH ×3 (06:17→22:52)
[2017-08-06 07:43] LABS: Basophils # 0.1 10*3/uL (0.0-0.2); Basophils % 0.9 % (0.0-0.8); Eosinophils # 0.5 10*3/uL (0.0-0.87); Eosinophils % 7.7 % (0.00-10.9); Hematocrit 33.1 VOL% (35.7-47.0); Immature Granulocytes % 1.3 %; Immature Granulocytes Absolute 0.08 #; Lymphocytes # 0.9 10*3/uL (1.4-4.0); Lymphocytes % 13.6 % (21.3-54.2); Mean Corpuscular HGB Conc 29.3 GM/DL (32-36); Mean Corpuscular Hemoglobin 33 PG (27-34); Mean Platelet Volume 10.2 FL (9.6-12.0); Monocytes # 0.5 10*3/uL (0.11-0.8); Monocytes % 7.4 % (1.7-12.7); Neutrophils # 4.4 10*3/uL (1.4-7.4); Neutrophils % 69.1 % (38.7-73.9); Platelet Count 339 T/CUMM (130-400); Red Cell Distribution Width 14.6 % (9.3-17.3)
[2017-08-06] MEDS ORDERED: hydrALAZINE 25 MG TABLET ONE (07:44)
[2017-08-06 07:47] LABS: Hemoglobin 9.7 GM/DL (12.0-16.0); Red Blood Count 2.93 MC/CUMM (3.8-5.5); White Blood Count 6.4 T/CUMM (4-12)
[2017-08-06] MEDS: PANTOPRAZOLE 40 MG TABLET PO SCH ×2 (07:49→11:24)
[2017-08-06] MEDS: INSULIN LISPRO 100 UNIT/ML SUBCUT SCH ×4 (07:50→21:16)
[2017-08-06] MEDS ORDERED: BUPIVACAINE MPF 0.25% 30 ML VIAL ONE (07:56)
[2017-08-06] MEDS ORDERED: LIDOCAINE 1% 20 ML VIAL ONE (07:57)
[2017-08-06 08:05] LABS: Platelet Estimate Adequate
[2017-08-06 09:26] LABS: Calcium 8.6 MG/DL (8.5-10.1); Osmolality,Calculated 290.1 MOS/KG (273-304); Potassium 3.6 MMOL/L (3.5-5.1)
[2017-08-06] MEDS ORDERED: PROPOFOL 200 MG/20 ML VIAL IV ONE (09:52)
[2017-08-06] MEDS ORDERED: ONDANSETRON 4 MG/2 ML VIAL ONE ×2 (09:53→09:54)
[2017-08-06] MEDS ORDERED: SEVOFLURANE 1 UNIT/15 MINUTE INH ONE (09:53)
[2017-08-06] MEDS ORDERED: MIDAZOLAM 2 MG/2 ML VIAL ONE (09:53)
[2017-08-06] MEDS ORDERED: fentaNYL 100 MCG/2 ML VIAL ONE (09:53)
[2017-08-06] MEDS ORDERED: PHENYLEPHRINE 1 MG/10 ML SYRINGE IV ONE (09:54)
[2017-08-06] MEDS: CALCIUM CARBONATE CHEW 500 MG TABLET PO SCH ×3 (11:23→19:34)
[2017-08-06] MEDS: CLOPIDOGREL 75 MG TABLET PO SCH (11:24)
[2017-08-06] MEDS: amLODIPine 10 MG TABLET PO SCH (11:47)
[2017-08-06] MEDS: CALCITRIOL 0.25 MCG CAPSULE PO SCH (14:58)
[2017-08-06] MEDS: cloNIDine 0.1 MG TABLET PO SCH (21:16)
[2017-08-07] MEDS: PIPERACILLIN/TAZOBACTAM 3,375 MG in SODIUM CHLORIDE 0.9% 100 ML IV SCH ×2 (04:41→15:53)
[2017-08-07] MEDS: CLINDAMYCIN INJ 600 MG in PREMIX 1 EACH IV SCH ×3 (06:07→22:19)
[2017-08-07] MEDS: HEPARIN 5,000 UNIT/1 ML VIAL SUBCUT SCH ×3 (06:07→22:19)
[2017-08-07] MEDS: MORPHINE 4 MG/1 ML VIAL IV PRN ×2 (06:40→19:18)
[2017-08-07] MEDS: INSULIN LISPRO 100 UNIT/ML SUBCUT SCH ×4 (09:10→22:20)
[2017-08-07] MEDS: PANTOPRAZOLE 40 MG TABLET PO SCH (09:12)
[2017-08-07] MEDS: amLODIPine 10 MG TABLET PO SCH (09:12)
[2017-08-07] MEDS: CALCIUM CARBONATE CHEW 500 MG TABLET PO SCH ×3 (09:12→16:49)
[2017-08-07] MEDS: CLOPIDOGREL 75 MG TABLET PO SCH (09:12)
[2017-08-07] MEDS: CALCITRIOL 0.25 MCG CAPSULE PO SCH (11:02)
[2017-08-07] MEDS: ONDANSETRON 4 MG/2 ML VIAL IV PRN (13:21)
[2017-08-07] MEDS: cloNIDine 0.1 MG TABLET PO SCH (22:19)
[2017-08-08] MEDS: MORPHINE 4 MG/1 ML VIAL IV PRN (00:56)
[2017-08-08] MEDS: PIPERACILLIN/TAZOBACTAM 3,375 MG in SODIUM CHLORIDE 0.9% 100 ML IV SCH ×2 (03:45→17:21)
[2017-08-08] MEDS: HEPARIN 5,000 UNIT/1 ML VIAL SUBCUT SCH ×3 (06:26→22:09)
[2017-08-08] MEDS: CLINDAMYCIN INJ 600 MG in PREMIX 1 EACH IV SCH ×3 (07:59→22:09)
[2017-08-08] MEDS: INSULIN LISPRO 100 UNIT/ML SUBCUT SCH ×4 (09:15→20:47)
[2017-08-08] MEDS: CLOPIDOGREL 75 MG TABLET PO SCH (09:15)
[2017-08-08] MEDS: amLODIPine 10 MG TABLET PO SCH (09:15)
[2017-08-08] MEDS: PANTOPRAZOLE 40 MG TABLET PO SCH (09:15)
[2017-08-08] MEDS: CALCIUM CARBONATE CHEW 500 MG TABLET PO SCH ×3 (09:15→17:22)
[2017-08-08] MEDS: CALCITRIOL 0.25 MCG CAPSULE PO SCH (09:15)
[2017-08-08] MEDS: cloNIDine 0.1 MG TABLET PO SCH (20:48)
[2017-08-09] MEDS: PIPERACILLIN/TAZOBACTAM 3,375 MG in SODIUM CHLORIDE 0.9% 100 ML IV SCH ×2 (03:49→16:50)
[2017-08-09 05:43] LABS: Basophils # 0.1 10*3/uL (0.0-0.2); Basophils % 0.8 % (0.0-0.8); Eosinophils # 0.7 10*3/uL (0.0-0.87); Eosinophils % 8.2 % (0.00-10.9); Hematocrit 31.1 VOL% (35.7-47.0); Hemoglobin 10.2 GM/DL (12.0-16.0); Immature Granulocytes % 1.7 %; Immature Granulocytes Absolute 0.15 #; Lymphocytes # 0.8 10*3/uL (1.4-4.0); Lymphocytes % 8.9 % (21.3-54.2); Mean Corpuscular HGB Conc 32.8 GM/DL (32-36); Mean Corpuscular Hemoglobin 33 PG (27-34); Mean Corpuscular Volume 99.4 FL (87-102); Mean Platelet Volume 10.2 FL (9.6-12.0); Monocytes # 0.8 10*3/uL (0.11-0.8); Monocytes % 9.2 % (1.7-12.7); Neutrophils # 6.4 10*3/uL (1.4-7.4); Neutrophils % 71.2 % (38.7-73.9); Platelet Count 391 T/CUMM (130-400); Red Blood Count 3.13 MC/CUMM (3.8-5.5); Red Cell Distribution Width 13.2 % (9.3-17.3)
[2017-08-09 06:03] LABS: Albumin 1.7 G/DL (3.4-5.0); Calcium 8.5 MG/DL (8.5-10.1); Osmolality,Calculated 282.5 MOS/KG (273-304); Potassium 3.9 MMOL/L (3.5-5.1)
[2017-08-09] MEDS: HEPARIN 5,000 UNIT/1 ML VIAL SUBCUT SCH ×3 (06:25→23:10)
[2017-08-09] MEDS: INSULIN LISPRO 100 UNIT/ML SUBCUT SCH ×4 (08:49→20:53)
[2017-08-09] MEDS: amLODIPine 10 MG TABLET PO SCH (08:50)
[2017-08-09] MEDS: CLINDAMYCIN INJ 600 MG in PREMIX 1 EACH IV SCH ×3 (08:50→23:40)
[2017-08-09] MEDS: CALCIUM CARBONATE CHEW 500 MG TABLET PO SCH ×3 (08:56→17:50)
[2017-08-09] MEDS: CALCITRIOL 0.25 MCG CAPSULE PO SCH (08:56)
[2017-08-09] MEDS: PANTOPRAZOLE 40 MG TABLET PO SCH (08:56)
[2017-08-09] MEDS: CLOPIDOGREL 75 MG TABLET PO SCH (08:56)
[2017-08-09] MEDS: cloNIDine 0.1 MG TABLET PO SCH (20:53)
[2017-08-09] MEDS: ONDANSETRON 4 MG/2 ML VIAL IV PRN (20:58)
[2017-08-10] MEDS: PIPERACILLIN/TAZOBACTAM 3,375 MG in SODIUM CHLORIDE 0.9% 100 ML IV SCH (04:59)
[2017-08-10] MEDS: HEPARIN 5,000 UNIT/1 ML VIAL SUBCUT SCH ×2 (06:57→15:45)
[2017-08-10] MEDS ORDERED: HYDROmorphone 2 MG/1 ML VIAL IV PRN (08:59)
[2017-08-10] MEDS ORDERED: ONDANSETRON 4 MG/2 ML VIAL IV PRN (08:59)
[2017-08-10] MEDS ORDERED: ACETAMINOPHEN INJ 1,000 MG in PREMIX 1 EACH IV ONE (09:00)
[2017-08-10] MEDS ORDERED: HYDROmorphone 2 MG/1 ML VIAL ONE (09:01)
[2017-08-10] MEDS ORDERED: ONDANSETRON 4 MG/2 ML VIAL ONE (09:01)
[2017-08-10] MEDS ORDERED: ACETAMINOPHEN 1,000 MG/100 ML VIAL IV ONE (09:01)
[2017-08-10] MEDS ORDERED: SEVOFLURANE 1 UNIT/15 MINUTE INH ONE (09:06)
[2017-08-10] MEDS ORDERED: PHENYLEPHRINE 10 MG/1 ML VIAL IV ONE (09:06)
[2017-08-10] MEDS ORDERED: PROPOFOL 200 MG/20 ML VIAL IV ONE (09:06)
[2017-08-10] MEDS ORDERED: MIDAZOLAM 2 MG/2 ML VIAL ONE (09:06)
[2017-08-10] MEDS ORDERED: fentaNYL 100 MCG/2 ML VIAL ONE ×2 (09:06→09:07)
[2017-08-10] MEDS ORDERED: MORPHINE 10 MG/1 ML VIAL ONE (09:39)
[2017-08-10] MEDS: MORPHINE 10 MG/1 ML VIAL IV PRN ×3 (09:41→09:55)
[2017-08-10] MEDS ORDERED: ROPIVACAINE 0.5% 30 ML VIAL ONE (10:02)
[2017-08-10] MEDS: INSULIN LISPRO 100 UNIT/ML SUBCUT SCH ×4 (10:46→23:37)
[2017-08-10] MEDS: CLINDAMYCIN INJ 600 MG in PREMIX 1 EACH IV SCH (10:46)
[2017-08-10] MEDS: CLOPIDOGREL 75 MG TABLET PO SCH (10:47)
[2017-08-10] MEDS: amLODIPine 10 MG TABLET PO SCH (10:47)
[2017-08-10] MEDS: CALCITRIOL 0.25 MCG CAPSULE PO SCH (10:47)
[2017-08-10] MEDS: CALCIUM CARBONATE CHEW 500 MG TABLET PO SCH ×3 (10:47→16:45)
[2017-08-10] MEDS: PANTOPRAZOLE 40 MG TABLET PO SCH (10:47)
[2017-08-10] MEDS: GABAPENTIN 100 MG CAPSULE PO SCH ×3 (12:59→20:58)
[2017-08-10] MEDS: MORPHINE 4 MG/1 ML VIAL IV PRN ×2 (13:45→23:37)
[2017-08-10] MEDS: ONDANSETRON 4 MG/2 ML VIAL IV PRN (16:45)
[2017-08-10] MEDS: cloNIDine 0.1 MG TABLET PO SCH (23:37)
[2017-08-11] MEDS: ONDANSETRON 4 MG/2 ML VIAL IV PRN ×2 (00:33→17:20)
[2017-08-11] MEDS: HEPARIN 5,000 UNIT/1 ML VIAL SUBCUT SCH ×4 (00:38→22:24)
[2017-08-11] MEDS: MORPHINE 4 MG/1 ML VIAL IV PRN ×2 (03:45→09:35)
[2017-08-11 04:49] LABS: Basophils % 0.4 % (0.0-0.8); Eosinophils # 0.5 10*3/uL (0.0-0.87); Eosinophils % 4.4 % (0.00-10.9); Hematocrit 31.9 VOL% (35.7-47.0); Hemoglobin 10.5 GM/DL (12.0-16.0); Immature Granulocytes % 1.6 %; Immature Granulocytes Absolute 0.17 #; Lymphocytes # 0.9 10*3/uL (1.4-4.0); Lymphocytes % 8.5 % (21.3-54.2); Mean Corpuscular HGB Conc 32.9 GM/DL (32-36); Mean Corpuscular Hemoglobin 32 PG (27-34); Mean Corpuscular Volume 98.2 FL (87-102); Monocytes % 9.3 % (1.7-12.7); Neutrophils # 8.2 10*3/uL (1.4-7.4); Neutrophils % 75.8 % (38.7-73.9); Platelet Count 430 T/CUMM (130-400); Red Blood Count 3.25 MC/CUMM (3.8-5.5); Red Cell Distribution Width 13.2 % (9.3-17.3); White Blood Count 10.8 T/CUMM (4-12)
[2017-08-11 05:12] LABS: Calcium 8.8 MG/DL (8.5-10.1); Osmolality,Calculated 267.2 MOS/KG (273-304); Potassium 3.8 MMOL/L (3.5-5.1)
[2017-08-11] MEDS: INSULIN LISPRO 100 UNIT/ML SUBCUT SCH ×4 (08:56→21:18)
[2017-08-11] MEDS: CLOPIDOGREL 75 MG TABLET PO SCH (09:34)
[2017-08-11] MEDS: amLODIPine 10 MG TABLET PO SCH (09:34)
[2017-08-11] MEDS: GABAPENTIN 100 MG CAPSULE PO SCH ×3 (09:34→21:14)
[2017-08-11] MEDS: PANTOPRAZOLE 40 MG TABLET PO SCH (09:35)
[2017-08-11] MEDS: CALCIUM CARBONATE CHEW 500 MG TABLET PO SCH ×3 (09:35→16:30)
[2017-08-11] MEDS ORDERED: NALOXONE 0.4 MG/ML VIAL IV PRN (09:39)
[2017-08-11] MEDS: CALCITRIOL 0.25 MCG CAPSULE PO SCH (09:57)
[2017-08-11] MEDS ORDERED: MORPHINE PCA 30 MG/30 ML SYRINGE IV SCH (10:00)
[2017-08-11] MEDS: SODIUM CHLORIDE 0.9% 1,000 ML IV SCH (11:20)
[2017-08-11] MEDS: cloNIDine 0.1 MG TABLET PO SCH (21:18)
[2017-08-12] MEDS: HEPARIN 5,000 UNIT/1 ML VIAL SUBCUT SCH ×3 (07:25→23:10)
[2017-08-12] MEDS: ONDANSETRON 4 MG/2 ML VIAL IV PRN ×2 (08:40→23:10)
[2017-08-12] MEDS: CALCIUM CARBONATE CHEW 500 MG TABLET PO SCH ×3 (10:00→16:33)
[2017-08-12] MEDS: INSULIN LISPRO 100 UNIT/ML SUBCUT SCH ×4 (10:00→21:44)
[2017-08-12] MEDS: CALCITRIOL 0.25 MCG CAPSULE PO SCH (10:00)
[2017-08-12] MEDS: amLODIPine 10 MG TABLET PO SCH (10:01)
[2017-08-12] MEDS: CLOPIDOGREL 75 MG TABLET PO SCH (10:01)
[2017-08-12] MEDS: PANTOPRAZOLE 40 MG TABLET PO SCH (10:01)
[2017-08-12] MEDS: GABAPENTIN 100 MG CAPSULE PO SCH ×3 (11:19→21:43)
[2017-08-12] MEDS: cloNIDine 0.1 MG TABLET PO SCH (21:42)
[2017-08-12] MEDS: SODIUM CHLORIDE 0.9% 1,000 ML IV SCH (23:29)
[2017-08-13] MEDS: SODIUM CHLORIDE 0.9% 1,000 ML IV SCH ×2 (05:55→14:18)
[2017-08-13] MEDS: CLOPIDOGREL 75 MG TABLET PO SCH (08:12)
[2017-08-13] MEDS: amLODIPine 10 MG TABLET PO SCH (08:12)
[2017-08-13] MEDS: HEPARIN 5,000 UNIT/1 ML VIAL SUBCUT SCH (08:12)
[2017-08-13] MEDS: CALCITRIOL 0.25 MCG CAPSULE PO SCH (08:12)
[2017-08-13] MEDS: INSULIN LISPRO 100 UNIT/ML SUBCUT SCH ×2 (08:12→11:36)
[2017-08-13] MEDS: PANTOPRAZOLE 40 MG TABLET PO SCH (08:12)
[2017-08-13] MEDS: GABAPENTIN 100 MG CAPSULE PO SCH (08:12)
[2017-08-13] MEDS: CALCIUM CARBONATE CHEW 500 MG TABLET PO SCH ×2 (08:12→14:19)
[2017-08-13] MEDS ORDERED: MORPHINE 4 MG/1 ML VIAL IV PRN (09:30)
[2017-08-13 11:14] VITALS: BP 101/60
== END 2017-08-13 15:25 | DRG 239 ==
LOC: N.3E 14:05
PROVIDERS: ADMIT Surgery; ATTEND Surgery

== ENCOUNTER 2017-09-17 19:04 | Inpatient (IN) ==
[2017-09-17] MEDS ORDERED: PIPERACILLIN/TAZOBACTAM 3,375 MG in SODIUM CHLORIDE 0.9% 100 ML IV STA (19:54)
[2017-09-17 20:02] LABS: Basophils # 0.1 10*3/uL (0.0-0.2); Basophils % 0.5 % (0.0-0.8); Eosinophils # 0.4 10*3/uL (0.0-0.87); Eosinophils % 4.2 % (0.00-10.9); Hematocrit 26.2 VOL% (35.7-47.0); Hemoglobin 8.4 GM/DL (12.0-16.0); Immature Granulocytes % 0.6 %; Immature Granulocytes Absolute 0.06 #; Lymphocytes % 9.4 % (21.3-54.2); Mean Corpuscular HGB Conc 32.1 GM/DL (32-36); Mean Corpuscular Hemoglobin 33 PG (27-34); Mean Corpuscular Volume 101.6 FL (87-102); Monocytes # 0.6 10*3/uL (0.11-0.8); Monocytes % 6.3 % (1.7-12.7); Platelet Count 290 T/CUMM (130-400); Red Blood Count 2.58 MC/CUMM (3.8-5.5); Red Cell Distribution Width 14.3 % (9.3-17.3); White Blood Count 10.1 T/CUMM (4-12)
[2017-09-17] MEDS ORDERED: ONDANSETRON 4 MG/2 ML VIAL ONE (20:15)
[2017-09-17] MEDS ORDERED: HYDROmorphone 2 MG/1 ML VIAL ONE (20:16)
[2017-09-17] MEDS ORDERED: HYDROmorphone 2 MG/1 ML VIAL IV ONE (20:16)
[2017-09-17] MEDS ORDERED: ONDANSETRON 4 MG/2 ML VIAL IV STA (20:16)
[2017-09-17 20:19] LABS: Bilirubin,Total 0.5 MG/DL (0.2-1.0); Calcium 8.1 MG/DL (8.5-10.1); Osmolality,Calculated 300.7 MOS/KG (273-304); Potassium 4.4 MMOL/L (3.5-5.1); Total Protein 5.9 G/DL (6.4-8.3)
[2017-09-17] MEDS ORDERED: ACETAMINOPHEN 325 MG TABLET PO PRN (21:35)
[2017-09-17] MEDS ORDERED: HYDROmorphone 2 MG/1 ML VIAL IV PRN (21:35)
[2017-09-17] MEDS ORDERED: GLUCAGON 1 MG VIAL IM PRN (21:35)
[2017-09-17] MEDS ORDERED: DEXTROSE 50% 25 GM/50 ML VIAL IV PRN (21:35)
[2017-09-17] MEDS ORDERED: ONDANSETRON 4 MG/2 ML VIAL IV PRN (21:35)
[2017-09-17] MEDS: cloNIDine 0.1 MG TABLET PO SCH (22:33)
[2017-09-17] MEDS: GABAPENTIN 100 MG CAPSULE PO SCH (22:33)
[2017-09-17] MEDS: INSULIN REGULAR 100 UNIT/ML SUBCUT SCH (22:40)
[2017-09-17] MEDS: INSULIN GLARGINE 100 UNIT/ML SUBCUT SCH (23:26)
[2017-09-18] MEDS ORDERED: CLINDAMYCIN INJ 900 MG in PREMIX 1 EACH IV ONE (07:32)
[2017-09-18] MEDS: INSULIN REGULAR 100 UNIT/ML SUBCUT SCH ×4 (08:49→20:14)
[2017-09-18] MEDS ORDERED: PANTOPRAZOLE 40 MG TABLET PO SCH (09:00)
[2017-09-18] MEDS ORDERED: BUPIVACAINE MPF 0.25% 30 ML VIAL ONE (09:12)
[2017-09-18] MEDS ORDERED: LIDOCAINE 1% 20 ML VIAL ONE (09:12)
[2017-09-18] MEDS: HEPARIN 5,000 UNIT/1 ML VIAL SUBCUT SCH ×3 (09:24→23:57)
[2017-09-18] MEDS: PANTOPRAZOLE 40 MG TABLET PO SCH (09:24)
[2017-09-18 09:44] LABS: ABG HCO3 23.6 MMOL/L (20-26); ABG TCO2 21.7 MMOL/L (23-27); Glucose Heart Surgery 115 MG/DL (74-106); Hematocrit Heart Surgery 27.1 PERCENT (37-47); Hemoglobin Heart Surgery 8.7 G/DL (12.0-16.0); Potassium Heart/CVR 4.5 MMOL/L (3.5-5.1)
[2017-09-18] MEDS ORDERED: NALOXONE 0.4 MG/ML VIAL IV PRN (10:15)
[2017-09-18] MEDS: CALCITRIOL 0.25 MCG CAPSULE PO SCH ×2 (11:18→11:59)
[2017-09-18] MEDS: CLOPIDOGREL 75 MG TABLET PO SCH ×2 (11:18→11:58)
[2017-09-18] MEDS: GABAPENTIN 100 MG CAPSULE PO SCH ×3 (11:18→20:07)
[2017-09-18] MEDS: CALCIUM CARBONATE CHEW 500 MG TABLET PO SCH ×3 (11:58→16:29)
[2017-09-18] MEDS: cloNIDine 0.1 MG TABLET PO SCH (20:07)
[2017-09-18] MEDS: INSULIN GLARGINE 100 UNIT/ML SUBCUT SCH (20:14)
[2017-09-19 05:23] LABS: Basophils # 0.1 10*3/uL (0.0-0.2); Basophils % 0.7 % (0.0-0.8); Eosinophils # 0.5 10*3/uL (0.0-0.87); Eosinophils % 6.4 % (0.00-10.9); Hematocrit 23.7 VOL% (35.7-47.0); Hemoglobin 7.7 GM/DL (12.0-16.0); Immature Granulocytes % 0.7 %; Immature Granulocytes Absolute 0.05 #; Lymphocytes # 0.8 10*3/uL (1.4-4.0); Lymphocytes % 10.8 % (21.3-54.2); Mean Corpuscular HGB Conc 32.5 GM/DL (32-36); Mean Corpuscular Hemoglobin 33 PG (27-34); Mean Platelet Volume 10.1 FL (9.6-12.0); Monocytes # 0.6 10*3/uL (0.11-0.8); Monocytes % 7.6 % (1.7-12.7); Neutrophils # 5.3 10*3/uL (1.4-7.4); Neutrophils % 73.8 % (38.7-73.9); Platelet Count 259 T/CUMM (130-400); Red Blood Count 2.37 MC/CUMM (3.8-5.5); Red Cell Distribution Width 14.4 % (9.3-17.3); White Blood Count 7.2 T/CUMM (4-12)
[2017-09-19 05:49] LABS: Calcium 7.7 MG/DL (8.5-10.1); Potassium 4.5 MMOL/L (3.5-5.1)
[2017-09-19] MEDS ORDERED: BUPIVACAINE 0.25% /EPI 10 ML VIAL ONE (06:30)
[2017-09-19] MEDS ORDERED: LIDOCAINE 1%/EPI INJ 20 ML VIAL ONE (06:30)
[2017-09-19] MEDS: INSULIN REGULAR 100 UNIT/ML SUBCUT SCH ×4 (07:35→21:49)
[2017-09-19] MEDS: HEPARIN 5,000 UNIT/1 ML VIAL SUBCUT SCH ×2 (07:45→17:28)
[2017-09-19] MEDS ORDERED: MEPERIDINE 25 MG/1 ML VIAL ONE (09:16)
[2017-09-19] MEDS ORDERED: ONDANSETRON 4 MG/2 ML VIAL ONE ×2 (09:16→09:18)
[2017-09-19] MEDS ORDERED: PROPOFOL 200 MG/20 ML VIAL IV ONE (09:17)
[2017-09-19] MEDS ORDERED: MIDAZOLAM 2 MG/2 ML VIAL ONE (09:18)
[2017-09-19] MEDS ORDERED: fentaNYL 100 MCG/2 ML VIAL ONE ×2 (09:18→09:56)
[2017-09-19] MEDS ORDERED: SUCCINYLCHOLINE 200 MG/10 ML VIAL ONE (09:18)
[2017-09-19] MEDS ORDERED: SEVOFLURANE 1 UNIT/15 MINUTE INH ONE (09:18)
[2017-09-19] MEDS ORDERED: ROCURONIUM 100 MG/10 ML VIAL IV ONE (09:19)
[2017-09-19] MEDS: CALCIUM CARBONATE CHEW 500 MG TABLET PO SCH ×3 (09:23→18:34)
[2017-09-19] MEDS ORDERED: MEPERIDINE 25 MG/1 ML VIAL IV PRN (09:37)
[2017-09-19] MEDS ORDERED: ONDANSETRON 4 MG/2 ML VIAL IV PRN (09:37)
[2017-09-19] MEDS ORDERED: hydrALAZINE 20 MG/1 ML VIAL ONE (09:45)
[2017-09-19] MEDS ORDERED: LIDOCAINE 2% 20 ML VIAL ONE (09:45)
[2017-09-19] MEDS ORDERED: ROPIVACAINE 0.5% 30 ML VIAL ONE (09:50)
[2017-09-19] MEDS ORDERED: hydrALAZINE 20 MG/1 ML VIAL IV ONE (10:06)
[2017-09-19] MEDS ORDERED: fentaNYL 100 MCG/2 ML VIAL IV ONE (10:06)
[2017-09-19] MEDS ORDERED: SODIUM CHLORIDE 0.9% 250 ML IV ONE (10:15)
[2017-09-19] MEDS: PANTOPRAZOLE 40 MG TABLET PO SCH (11:45)
[2017-09-19] MEDS: GABAPENTIN 100 MG CAPSULE PO SCH ×2 (11:45→21:52)
[2017-09-19] MEDS: CLOPIDOGREL 75 MG TABLET PO SCH (11:45)
[2017-09-19] MEDS: CALCITRIOL 0.25 MCG CAPSULE PO SCH (11:45)
[2017-09-19] MEDS ORDERED: SKIN HEALING OINT (AQUAPHOR) 50 GM TUBE TOP PRN (14:50)
[2017-09-19] MEDS: INSULIN GLARGINE 100 UNIT/ML SUBCUT SCH (21:49)
[2017-09-19] MEDS: cloNIDine 0.1 MG TABLET PO SCH (21:50)
[2017-09-20] MEDS: HEPARIN 5,000 UNIT/1 ML VIAL SUBCUT SCH ×3 (00:03→17:14)
[2017-09-20 06:04] LABS: Basophils % 0.5 % (0.0-0.8); Eosinophils # 0.5 10*3/uL (0.0-0.87); Eosinophils % 5.9 % (0.00-10.9); Hematocrit 23.4 VOL% (35.7-47.0); Hemoglobin 7.5 GM/DL (12.0-16.0); Immature Granulocytes % 0.8 %; Immature Granulocytes Absolute 0.07 #; Lymphocytes % 11.5 % (21.3-54.2); Mean Corpuscular HGB Conc 32.1 GM/DL (32-36); Mean Corpuscular Hemoglobin 32 PG (27-34); Mean Corpuscular Volume 99.6 FL (87-102); Mean Platelet Volume 10.1 FL (9.6-12.0); Monocytes # 0.9 10*3/uL (0.11-0.8); Monocytes % 9.8 % (1.7-12.7); Neutrophils # 6.2 10*3/uL (1.4-7.4); Neutrophils % 71.5 % (38.7-73.9); Platelet Count 246 T/CUMM (130-400); Red Blood Count 2.35 MC/CUMM (3.8-5.5); Red Cell Distribution Width 14.4 % (9.3-17.3); White Blood Count 8.6 T/CUMM (4-12)
[2017-09-20 06:39] LABS: Calcium 8.1 MG/DL (8.5-10.1); Potassium 4.3 MMOL/L (3.5-5.1)
[2017-09-20] MEDS: CALCIUM CARBONATE CHEW 500 MG TABLET PO SCH ×3 (09:06→17:13)
[2017-09-20] MEDS: CLOPIDOGREL 75 MG TABLET PO SCH (09:06)
[2017-09-20] MEDS: GABAPENTIN 100 MG CAPSULE PO SCH ×2 (09:06→21:05)
[2017-09-20] MEDS: CALCITRIOL 0.25 MCG CAPSULE PO SCH (09:07)
[2017-09-20] MEDS: PANTOPRAZOLE 40 MG TABLET PO SCH (09:13)
[2017-09-20] MEDS: INSULIN REGULAR 100 UNIT/ML SUBCUT SCH ×4 (09:32→21:03)
[2017-09-20] MEDS: INSULIN GLARGINE 100 UNIT/ML SUBCUT SCH (21:04)
[2017-09-20] MEDS: cloNIDine 0.1 MG TABLET PO SCH (21:05)
[2017-09-21] MEDS: HEPARIN 5,000 UNIT/1 ML VIAL SUBCUT SCH ×4 (00:38→23:50)
[2017-09-21] MEDS: INSULIN REGULAR 100 UNIT/ML SUBCUT SCH ×4 (07:47→22:25)
[2017-09-21] MEDS: CALCITRIOL 0.25 MCG CAPSULE PO SCH (08:45)
[2017-09-21] MEDS: PANTOPRAZOLE 40 MG TABLET PO SCH (08:45)
[2017-09-21] MEDS: GABAPENTIN 100 MG CAPSULE PO SCH ×2 (08:45→22:18)
[2017-09-21] MEDS: CLOPIDOGREL 75 MG TABLET PO SCH (08:45)
[2017-09-21] MEDS: CALCIUM CARBONATE CHEW 500 MG TABLET PO SCH ×3 (08:46→16:22)
[2017-09-21] MEDS ORDERED: NITROGLYCERIN SL 0.4 MG TABLET SL PRN (14:41)
[2017-09-21] MEDS ORDERED: ASPIRIN CHEW 81 MG TABLET PO ONE (14:41)
[2017-09-21] MEDS ORDERED: LABETALOL 100 MG/20 ML VIAL IV ONE (14:42)
[2017-09-21] MEDS: cloNIDine 0.1 MG TABLET PO SCH ×2 (14:50→22:29)
[2017-09-21 15:09] LABS: Basophils % 0.3 % (0.0-0.8); Eosinophils # 0.7 10*3/uL (0.0-0.87); Eosinophils % 7.8 % (0.00-10.9); Hematocrit 26.8 VOL% (35.7-47.0); Hemoglobin 8.7 GM/DL (12.0-16.0); Immature Granulocytes Absolute 0.09 #; Lymphocytes # 1.1 10*3/uL (1.4-4.0); Lymphocytes % 12.6 % (21.3-54.2); Mean Corpuscular HGB Conc 32.5 GM/DL (32-36); Mean Corpuscular Hemoglobin 33 PG (27-34); Mean Corpuscular Volume 101.5 FL (87-102); Mean Platelet Volume 10.1 FL (9.6-12.0); Monocytes # 0.8 10*3/uL (0.11-0.8); Monocytes % 8.6 % (1.7-12.7); Neutrophils % 69.7 % (38.7-73.9); Platelet Count 274 T/CUMM (130-400); Red Blood Count 2.64 MC/CUMM (3.8-5.5); Red Cell Distribution Width 14.1 % (9.3-17.3); White Blood Count 8.7 T/CUMM (4-12)
[2017-09-21 15:30] LABS: CKMB % 12.7 %
[2017-09-21 15:32] LABS: Alanine Aminotransferase 18 U/L (13-56); Albumin 1.7 G/DL (3.4-5.0); Alkaline Phosphatase 142 U/L (45-117); Aspartate Amino Transferase 13 U/L (0-37); Bilirubin,Total < 0.39 MG/DL (0.2-1.0); Blood Urea Nitrogen 66 MG/DL (7-18); Calcium 8.8 MG/DL (8.5-10.1); Glucose 207 MG/DL (74-106); Osmolality,Calculated 288.5 MOS/KG (273-304); Potassium 4.2 MMOL/L (3.5-5.1); Sodium 132 MMOL/L (136-145); Total Protein 5.6 G/DL (6.4-8.3)
[2017-09-21] MEDS: INSULIN GLARGINE 100 UNIT/ML SUBCUT SCH (22:18)
[2017-09-22 03:22] LABS: Basophils % 0.5 % (0.0-0.8); Eosinophils # 0.6 10*3/uL (0.0-0.87); Eosinophils % 8.1 % (0.00-10.9); Hematocrit 23.3 VOL% (35.7-47.0); Hemoglobin 7.3 GM/DL (12.0-16.0); Immature Granulocytes % 1.1 %; Immature Granulocytes Absolute 0.08 #; Lymphocytes # 1.1 10*3/uL (1.4-4.0); Lymphocytes % 15.1 % (21.3-54.2); Mean Corpuscular HGB Conc 31.3 GM/DL (32-36); Mean Corpuscular Hemoglobin 32 PG (27-34); Mean Corpuscular Volume 102.6 FL (87-102); Mean Platelet Volume 10.1 FL (9.6-12.0); Monocytes # 0.7 10*3/uL (0.11-0.8); Monocytes % 9.5 % (1.7-12.7); Neutrophils # 4.9 10*3/uL (1.4-7.4); Neutrophils % 65.7 % (38.7-73.9); Platelet Count 260 T/CUMM (130-400); Red Blood Count 2.27 MC/CUMM (3.8-5.5); Red Cell Distribution Width 14.1 % (9.3-17.3); White Blood Count 7.4 T/CUMM (4-12)
[2017-09-22 03:23] LABS: Basophils % 0.3 % (0.0-0.8); Eosinophils # 0.6 10*3/uL (0.0-0.87); Eosinophils % 8.1 % (0.00-10.9); Hematocrit 22.5 VOL% (35.7-47.0); Hemoglobin 7.4 GM/DL (12.0-16.0); Immature Granulocytes % 1.1 %; Immature Granulocytes Absolute 0.08 #; Lymphocytes # 1.2 10*3/uL (1.4-4.0); Lymphocytes % 15.2 % (21.3-54.2); Mean Corpuscular HGB Conc 32.9 GM/DL (32-36); Mean Corpuscular Hemoglobin 33 PG (27-34); Mean Platelet Volume 10.1 FL (9.6-12.0); Monocytes # 0.7 10*3/uL (0.11-0.8); Monocytes % 9.5 % (1.7-12.7); Neutrophils % 65.8 % (38.7-73.9); Platelet Count 269 T/CUMM (130-400); Red Blood Count 2.25 MC/CUMM (3.8-5.5); Red Cell Distribution Width 14.2 % (9.3-17.3); White Blood Count 7.6 T/CUMM (4-12)
[2017-09-22 03:49] LABS: Calcium 8.4 MG/DL (8.5-10.1); Osmolality,Calculated 288.4 MOS/KG (273-304)
[2017-09-22 03:51] LABS: Folate 3.6 NG/ML (5.4-24.0); Vitamin B12 608 PG/ML (211-911)
[2017-09-22 04:01] LABS: % Iron Saturation 50.3 % (18-50); Ferritin 1222.2 ng/ml (8-252); Risk Ratio 2.24; Thyroid Stimulating Hormone 6.48 uIU/ml (0.358-3.74); VLDL CHOLESTEROL 13.4 MG/DL
[2017-09-22 05:48] LABS: Sedimentation Rate-Westergren 112 MM/HR (0-20)
[2017-09-22] MEDS: CALCIUM CARBONATE CHEW 500 MG TABLET PO SCH ×3 (09:17→18:08)
[2017-09-22] MEDS: cloNIDine 0.1 MG TABLET PO SCH (09:18)
[2017-09-22] MEDS: GABAPENTIN 100 MG CAPSULE PO SCH ×2 (09:18→20:56)
[2017-09-22] MEDS: CLOPIDOGREL 75 MG TABLET PO SCH (09:18)
[2017-09-22] MEDS: PANTOPRAZOLE 40 MG TABLET PO SCH (09:18)
[2017-09-22] MEDS: INSULIN REGULAR 100 UNIT/ML SUBCUT SCH ×4 (09:19→20:57)
[2017-09-22] MEDS: HEPARIN 5,000 UNIT/1 ML VIAL SUBCUT SCH ×2 (09:19→15:35)
[2017-09-22] MEDS: CALCITRIOL 0.25 MCG CAPSULE PO SCH (09:22)
[2017-09-22] MEDS: FOLIC ACID 1 MG TABLET PO SCH ×3 (09:23→20:56)
[2017-09-22] MEDS: LABETALOL 200 MG TABLET PO SCH ×2 (13:01→20:56)
[2017-09-22] MEDS: DOCUSATE SODIUM 100 MG CAPSULE PO SCH (15:35)
[2017-09-22] MEDS: INSULIN GLARGINE 100 UNIT/ML SUBCUT SCH (20:56)
[2017-09-23 07:24] LABS: Basophils # 0.1 10*3/uL (0.0-0.2); Basophils % 0.6 % (0.0-0.8); Eosinophils # 0.7 10*3/uL (0.0-0.87); Eosinophils % 8.6 % (0.00-10.9); Hematocrit 23.1 VOL% (35.7-47.0); Hemoglobin 7.3 GM/DL (12.0-16.0); Immature Granulocytes % 0.8 %; Immature Granulocytes Absolute 0.07 #; Lymphocytes # 1.2 10*3/uL (1.4-4.0); Mean Corpuscular HGB Conc 31.6 GM/DL (32-36); Mean Corpuscular Hemoglobin 32 PG (27-34); Mean Corpuscular Volume 101.8 FL (87-102); Mean Platelet Volume 10.1 FL (9.6-12.0); Monocytes # 0.8 10*3/uL (0.11-0.8); Monocytes % 9.9 % (1.7-12.7); Neutrophils # 5.6 10*3/uL (1.4-7.4); Neutrophils % 66.1 % (38.7-73.9); Platelet Count 294 T/CUMM (130-400); Red Blood Count 2.27 MC/CUMM (3.8-5.5); Red Cell Distribution Width 14.3 % (9.3-17.3); White Blood Count 8.5 T/CUMM (4-12)
[2017-09-23 07:53] LABS: Albumin 1.5 G/DL (3.4-5.0); Bilirubin,Total 0.6 MG/DL (0.2-1.0); Calcium 8.7 MG/DL (8.5-10.1); Osmolality,Calculated 281.7 MOS/KG (273-304); Potassium 4.3 MMOL/L (3.5-5.1); Total Protein 4.8 G/DL (6.4-8.3)
[2017-09-23] MEDS: FOLIC ACID 1 MG TABLET PO SCH (08:56)
[2017-09-23] MEDS: HEPARIN 5,000 UNIT/1 ML VIAL SUBCUT SCH ×3 (08:56→14:59)
[2017-09-23] MEDS: INSULIN REGULAR 100 UNIT/ML SUBCUT SCH ×4 (08:56→21:10)
[2017-09-23] MEDS: PANTOPRAZOLE 40 MG TABLET PO SCH (08:56)
[2017-09-23] MEDS: CALCIUM CARBONATE CHEW 500 MG TABLET PO SCH ×3 (08:56→17:00)
[2017-09-23] MEDS: CLOPIDOGREL 75 MG TABLET PO SCH (08:57)
[2017-09-23] MEDS: GABAPENTIN 100 MG CAPSULE PO SCH ×2 (08:57→21:10)
[2017-09-23] MEDS: CALCITRIOL 0.25 MCG CAPSULE PO SCH (08:57)
[2017-09-23] MEDS: DOCUSATE SODIUM 100 MG CAPSULE PO SCH (08:57)
[2017-09-23] MEDS: LABETALOL 200 MG TABLET PO SCH ×2 (09:03→21:10)
[2017-09-23] MEDS ORDERED: GENTAMICIN INJ 100 MG in PREMIX 1 EACH IV ONE (10:00)
[2017-09-23] MEDS ORDERED: VANCOMYCIN INJ 1,500 MG in SODIUM CHLORIDE 0.9% 500 ML IV ONE (10:00)
[2017-09-23] MEDS ORDERED: EPINEPHrine 1 MG/ML VIAL ONE (11:44)
[2017-09-23] MEDS ORDERED: diphenhydrAMINE 50 MG/1 ML VIAL ONE (11:44)
[2017-09-23] MEDS ORDERED: methylPREDNISolone SOD SUC 125 MG/2 ML VIAL ONE (11:49)
[2017-09-23] MEDS ORDERED: RACEPINEPHRINE 0.5 ML NEB RESP TX ONE (12:00)
[2017-09-23] MEDS: methylPREDNISolone SOD SUC 40 MG/1 ML VIAL IV SCH ×2 (14:56→21:11)
[2017-09-23] MEDS: FAMOTIDINE 20 MG/2 ML VIAL IV SCH (14:59)
[2017-09-23] MEDS: CETIRIZINE 10 MG TABLET PO SCH (14:59)
[2017-09-23] MEDS: INSULIN GLARGINE 100 UNIT/ML SUBCUT SCH (21:10)
[2017-09-23] MEDS: LINEZOLID INJ 600 MG in PREMIX 1 EACH IV SCH (22:50)
[2017-09-24] MEDS: HEPARIN 5,000 UNIT/1 ML VIAL SUBCUT SCH ×3 (00:54→16:18)
[2017-09-24 03:06] LABS: Basophils % 0.1 % (0.0-0.8); Hematocrit 25.4 VOL% (35.7-47.0); Hemoglobin 8.4 GM/DL (12.0-16.0); Immature Granulocytes % 0.6 %; Immature Granulocytes Absolute 0.06 #; Lymphocytes # 0.7 10*3/uL (1.4-4.0); Lymphocytes % 6.6 % (21.3-54.2); Mean Corpuscular HGB Conc 33.1 GM/DL (32-36); Mean Corpuscular Hemoglobin 33 PG (27-34); Mean Corpuscular Volume 98.8 FL (87-102); Monocytes # 0.1 10*3/uL (0.11-0.8); Monocytes % 1.2 % (1.7-12.7); NRBC # 0.02 10*3/uL; Neutrophils # 9.1 10*3/uL (1.4-7.4); Neutrophils % 91.5 % (38.7-73.9); Platelet Count 369 T/CUMM (130-400); Red Blood Count 2.57 MC/CUMM (3.8-5.5); Red Cell Distribution Width 14.1 % (9.3-17.3); White Blood Count 9.9 T/CUMM (4-12)
[2017-09-24 03:16] LABS: Calcium 8.9 MG/DL (8.5-10.1); Osmolality,Calculated 285.9 MOS/KG (273-304); Potassium 4.5 MMOL/L (3.5-5.1)
[2017-09-24 04:10] LABS: Band Neutrophils 2 % (0-10); Lymphocytes 8 % (20-55); Platelet Estimate Normal; Segmented Neutrophils 88 % (50-85); Total Cells Counted 100
[2017-09-24 04:11] LABS: Anisocytosis Slight; Macrocytosis Slight
[2017-09-24] MEDS: methylPREDNISolone SOD SUC 40 MG/1 ML VIAL IV SCH (06:14)
[2017-09-24] MEDS: CETIRIZINE 10 MG TABLET PO SCH (08:45)
[2017-09-24] MEDS: CLOPIDOGREL 75 MG TABLET PO SCH (08:45)
[2017-09-24] MEDS: PANTOPRAZOLE 40 MG TABLET PO SCH ×2 (08:45→20:42)
[2017-09-24] MEDS: LABETALOL 200 MG TABLET PO SCH ×2 (08:45→20:42)
[2017-09-24] MEDS: CALCIUM CARBONATE CHEW 500 MG TABLET PO SCH ×3 (08:45→16:25)
[2017-09-24] MEDS: CALCITRIOL 0.25 MCG CAPSULE PO SCH (08:45)
[2017-09-24] MEDS: FOLIC ACID 1 MG TABLET PO SCH (08:46)
[2017-09-24] MEDS: INSULIN REGULAR 100 UNIT/ML SUBCUT SCH ×4 (08:46→20:42)
[2017-09-24] MEDS: DOCUSATE SODIUM 100 MG CAPSULE PO SCH (08:50)
[2017-09-24] MEDS: GABAPENTIN 100 MG CAPSULE PO SCH ×2 (08:52→20:42)
[2017-09-24] MEDS: LINEZOLID INJ 600 MG in PREMIX 1 EACH IV SCH ×2 (09:01→21:39)
[2017-09-24] MEDS ORDERED: GENTAMICIN INJ 80 MG in PREMIX 1 EACH IV PRN (10:00)
[2017-09-24] MEDS ORDERED: VANCOMYCIN INJ 500 MG in SODIUM CHLORIDE 0.9% 100 ML IV PRN (10:00)
[2017-09-24] MEDS ORDERED: GLUCAGON 1 MG VIAL IM PRN (11:07)
[2017-09-24] MEDS ORDERED: DEXTROSE 50% 25 GM/50 ML VIAL IV PRN (11:07)
[2017-09-24] MEDS: FAMOTIDINE 20 MG/2 ML VIAL IV SCH (13:34)
[2017-09-24] MEDS: POLYETHYLENE GLYCOL POWDER 17 GM PACK PO SCH (20:42)
[2017-09-24] MEDS: INSULIN GLARGINE 100 UNIT/ML SUBCUT SCH (20:42)
[2017-09-25 06:26] LABS: Basophils % 0.1 % (0.0-0.8); Eosinophils # 0.1 10*3/uL (0.0-0.87); Eosinophils % 0.6 % (0.00-10.9); Hematocrit 22.1 VOL% (35.7-47.0); Hemoglobin 7.3 GM/DL (12.0-16.0); Immature Granulocytes % 0.7 %; Lymphocytes # 1.2 10*3/uL (1.4-4.0); Lymphocytes % 7.7 % (21.3-54.2); Mean Corpuscular Hemoglobin 32 PG (27-34); Mean Corpuscular Volume 97.8 FL (87-102); Mean Platelet Volume 9.7 FL (9.6-12.0); Monocytes # 0.9 10*3/uL (0.11-0.8); Monocytes % 5.9 % (1.7-12.7); Neutrophils # 12.9 10*3/uL (1.4-7.4); Platelet Count 366 T/CUMM (130-400); Red Blood Count 2.26 MC/CUMM (3.8-5.5); Red Cell Distribution Width 14.2 % (9.3-17.3); White Blood Count 15.2 T/CUMM (4-12)
[2017-09-25 06:52] LABS: Calcium 8.5 MG/DL (8.5-10.1); Osmolality,Calculated 278.8 MOS/KG (273-304)
[2017-09-25] MEDS: INSULIN REGULAR 100 UNIT/ML SUBCUT SCH ×4 (07:10→21:50)
[2017-09-25] MEDS ORDERED: LIDOCAINE 2% 5 ML VIAL ONE (08:20)
[2017-09-25] MEDS ORDERED: PROPOFOL 200 MG/20 ML VIAL IV ONE (08:20)
[2017-09-25] MEDS ORDERED: ETOMIDATE 20 MG/10 ML VIAL IV ONE (08:20)
[2017-09-25] MEDS ORDERED: GENTAMICIN IV PRN (08:30)
[2017-09-25] MEDS ORDERED: SODIUM CHLORIDE 0.9% IV PRN (08:30)
[2017-09-25] MEDS: CALCIUM CARBONATE CHEW 500 MG TABLET PO SCH ×3 (10:00→17:32)
[2017-09-25] MEDS: FOLIC ACID 1 MG TABLET PO SCH (10:01)
[2017-09-25] MEDS: DOCUSATE SODIUM 100 MG CAPSULE PO SCH (10:01)
[2017-09-25] MEDS: PANTOPRAZOLE 40 MG TABLET PO SCH ×2 (10:02→21:50)
[2017-09-25] MEDS: CALCITRIOL 0.25 MCG CAPSULE PO SCH (10:02)
[2017-09-25] MEDS: GABAPENTIN 100 MG CAPSULE PO SCH ×2 (10:02→21:50)
[2017-09-25] MEDS: LABETALOL 200 MG TABLET PO SCH ×2 (10:02→21:50)
[2017-09-25] MEDS: POLYETHYLENE GLYCOL POWDER 17 GM PACK PO SCH ×2 (10:02→21:50)
[2017-09-25] MEDS: CETIRIZINE 10 MG TABLET PO SCH (10:03)
[2017-09-25] MEDS: LINEZOLID INJ 600 MG in PREMIX 1 EACH IV SCH (10:09)
[2017-09-25] MEDS ORDERED: SODIUM CHLORIDE 0.9% 1,000 ML IV PRN (13:28)
[2017-09-25] MEDS: FAMOTIDINE 20 MG/2 ML VIAL IV SCH (14:08)
[2017-09-25] MEDS: LINEZOLID 600 MG TABLET PO SCH (21:50)
[2017-09-26] MEDS: INSULIN GLARGINE 100 UNIT/ML SUBCUT SCH (00:08)
[2017-09-26] MEDS: INSULIN REGULAR 100 UNIT/ML SUBCUT SCH ×2 (06:49→11:16)
[2017-09-26 07:37] LABS: Basophils # 0.1 10*3/uL (0.0-0.2); Basophils % 0.6 % (0.0-0.8); Eosinophils # 0.5 10*3/uL (0.0-0.87); Hematocrit 30.9 VOL% (35.7-47.0); Immature Granulocytes % 0.6 %; Immature Granulocytes Absolute 0.05 #; Lymphocytes # 1.4 10*3/uL (1.4-4.0); Lymphocytes % 15.3 % (21.3-54.2); Mean Corpuscular HGB Conc 32.4 GM/DL (32-36); Mean Corpuscular Hemoglobin 31 PG (27-34); Mean Corpuscular Volume 97.2 FL (87-102); Mean Platelet Volume 9.5 FL (9.6-12.0); Monocytes # 0.8 10*3/uL (0.11-0.8); Monocytes % 8.6 % (1.7-12.7); Neutrophils # 6.3 10*3/uL (1.4-7.4); Neutrophils % 69.9 % (38.7-73.9); Platelet Count 325 T/CUMM (130-400); Red Cell Distribution Width 14.9 % (9.3-17.3)
[2017-09-26 07:39] LABS: Red Blood Count 3.18 MC/CUMM (3.8-5.5)
[2017-09-26 07:40] LABS: White Blood Count 9.1 T/CUMM (4-12)
[2017-09-26 07:54] LABS: Calcium 8.2 MG/DL (8.5-10.1); Osmolality,Calculated 274.7 MOS/KG (273-304); Potassium 3.7 MMOL/L (3.5-5.1)
[2017-09-26] MEDS: CALCIUM CARBONATE CHEW 500 MG TABLET PO SCH ×2 (10:16→12:59)
[2017-09-26] MEDS: POLYETHYLENE GLYCOL POWDER 17 GM PACK PO SCH (10:16)
[2017-09-26] MEDS: GABAPENTIN 100 MG CAPSULE PO SCH (10:17)
[2017-09-26] MEDS: CALCITRIOL 0.25 MCG CAPSULE PO SCH (10:17)
[2017-09-26] MEDS: PANTOPRAZOLE 40 MG TABLET PO SCH (10:17)
[2017-09-26] MEDS: DOCUSATE SODIUM 100 MG CAPSULE PO SCH (10:17)
[2017-09-26] MEDS: FOLIC ACID 1 MG TABLET PO SCH (10:17)
[2017-09-26] MEDS: LABETALOL 200 MG TABLET PO SCH (10:18)
[2017-09-26] MEDS: CETIRIZINE 10 MG TABLET PO SCH (10:18)
[2017-09-26] MEDS: LINEZOLID 600 MG TABLET PO SCH (10:18)
[2017-09-26] MEDS: FAMOTIDINE 20 MG/2 ML VIAL IV SCH (14:17)
[2017-09-26 15:47] VITALS: BP 153/72
[2017-09-26] MEDS ORDERED: GENTAMICIN IV ONE (21:00)
[2017-09-26] MEDS ORDERED: SODIUM CHLORIDE 0.9% IV ONE (21:00)
== END 2017-09-26 14:30 | DRG 463 ==
LOC: N.ED 19:04 → N.EDINP 19:56 → N.3E 20:42 → N.CC 09-18 10:12 → N.5E 09-19 15:52 → N.CC 09-23 12:09 → N.3E 09-24 22:09
PROVIDERS: ADMIT Surgery; ATTEND Surgery

== ENCOUNTER 2018-12-10 10:39 | Observation (INO) ==
[2018-12-10] MEDS ORDERED: ASPIRIN 325 MG TABLET PO STA (11:07)
[2018-12-10 11:14] LABS: Basophils # 0.1 10*3/uL (0.0-0.2); Basophils % 0.5 % (0.0-0.8); Eosinophils # 0.5 10*3/uL (0.0-0.87); Eosinophils % 3.4 % (0.00-10.9); Hematocrit 28.6 VOL% (35.7-47.0); Hemoglobin 9.8 GM/DL (12.0-16.0); Immature Granulocytes % 1.2 %; Immature Granulocytes Absolute 0.18 #; Lymphocytes # 1.5 10*3/uL (1.4-4.0); Lymphocytes % 10.2 % (21.3-54.2); Mean Corpuscular HGB Conc 34.3 GM/DL (32-36); Mean Corpuscular Volume 97.9 FL (87-102); Mean Platelet Volume 10.5 FL (9.6-12.0); Monocytes % 5.2 % (1.7-12.7); NRBC # 0.04 10*3/uL; Neutrophils % 79.5 % (38.7-73.9); Platelet Count 334 T/CUMM (130-400); Red Blood Count 2.92 MC/CUMM (3.8-5.5); Red Cell Distribution Width 14.5 % (9.3-17.3); White Blood Count 14.9 T/CUMM (4-12)
[2018-12-10 11:23] LABS: Calcium 8.3 MG/DL (8.5-10.1); Osmolality,Calculated 290.7 MOS/KG (273-304)
[2018-12-10] MEDS ORDERED: GLUCAGON 1 MG VIAL IM PRN (13:12)
[2018-12-10] MEDS ORDERED: PROMETHAZINE 25 MG/1 ML VIAL IM PRN (13:12)
[2018-12-10] MEDS ORDERED: DEXTROSE 50% 25 GM/50 ML VIAL IV PRN (13:12)
[2018-12-10] MEDS ORDERED: ONDANSETRON 4 MG/2 ML VIAL IV PRN (13:12)
[2018-12-10] MEDS ORDERED: ACETAMINOPHEN 325 MG TABLET PO PRN (13:12)
[2018-12-10] MEDS ORDERED: POTASSIUM CHLORIDE 20 MEQ TABLET PO STA (13:19)
[2018-12-10] MEDS: HEPARIN 5,000 UNIT/1 ML VIAL SUBCUT SCH (15:22)
[2018-12-10] MEDS: PANTOPRAZOLE 40 MG TABLET PO SCH (15:22)
[2018-12-10] MEDS ORDERED: MAGNESIUM SULF RIDER 2 GM in PREMIX 1 EACH IV PRN ×2 (16:55→19:10)
[2018-12-10] MEDS: CALCIUM CARBONATE CHEW 500 MG TABLET PO SCH (17:52)
[2018-12-10] MEDS: INSULIN REGULAR 100 UNIT/ML SUBCUT SCH ×2 (17:52→20:49)
[2018-12-10] MEDS ORDERED: POTASSIUM CHLORIDE RIDER 10 MEQ in PREMIX 1 EACH IV PRN (19:10)
[2018-12-10] MEDS: CARVEDILOL 12.5 MG TABLET PO SCH (20:48)
[2018-12-11] MEDS: POTASSIUM CHLORIDE RIDER 10 MEQ in PREMIX 1 EACH IV PRN ×2 (00:25→02:30)
[2018-12-11] MEDS: HEPARIN 5,000 UNIT/1 ML VIAL SUBCUT SCH ×2 (02:55→14:56)
[2018-12-11] MEDS ORDERED: diphenhydrAMINE CAP 25 MG CAPSULE PO ONE (06:00)
[2018-12-11] MEDS ORDERED: DIAZEPAM 5 MG TABLET PO ONE (06:00)
[2018-12-11 06:16] LABS: Basophils # 0.1 10*3/uL (0.0-0.2); Basophils % 0.5 % (0.0-0.8); Eosinophils # 0.6 10*3/uL (0.0-0.87); Eosinophils % 4.4 % (0.00-10.9); Hematocrit 25.3 VOL% (35.7-47.0); Hemoglobin 8.7 GM/DL (12.0-16.0); Immature Granulocytes % 0.8 %; Lymphocytes # 1.5 10*3/uL (1.4-4.0); Lymphocytes % 12.2 % (21.3-54.2); Mean Corpuscular HGB Conc 34.4 GM/DL (32-36); Mean Corpuscular Volume 99.6 FL (87-102); Mean Platelet Volume 10.2 FL (9.6-12.0); Monocytes % 5.4 % (1.7-12.7); NRBC # 0.02 10*3/uL; Neutrophils % 76.7 % (38.7-73.9); Platelet Count 294 T/CUMM (130-400); Red Blood Count 2.54 MC/CUMM (3.8-5.5); Red Cell Distribution Width 14.8 % (9.3-17.3); White Blood Count 12.5 T/CUMM (4-12)
[2018-12-11 06:38] LABS: Calcium 8.5 MG/DL (8.5-10.1); Osmolality,Calculated 287.5 MOS/KG (273-304); Risk Ratio 3.97; Thyroid Stimulating Hormone 2.93 uIU/ml (0.358-3.74); VLDL CHOLESTEROL 44.8 MG/DL
[2018-12-11] MEDS ORDERED: LIDOCAINE 1% 20 ML VIAL ONE (06:40)
[2018-12-11] MEDS ORDERED: HEPARIN/NACL 0.9% 2 UNITS/ML 1,000 ML IV ONE (06:40)
[2018-12-11] MEDS: CARVEDILOL 12.5 MG TABLET PO SCH ×3 (06:43→21:16)
[2018-12-11] MEDS: SODIUM CHLORIDE 0.9% 1,000 ML IV SCH (06:43)
[2018-12-11] MEDS ORDERED: ASPIRIN CHEW 81 MG TABLET PO ONE (07:00)
[2018-12-11] MEDS: ASPIRIN EC 81 MG TABLET PO SCH ×2 (07:03→09:55)
[2018-12-11] MEDS ORDERED: HYDROmorphone 2 MG/1 ML VIAL ONE (07:26)
[2018-12-11] MEDS ORDERED: MIDAZOLAM 2 MG/2 ML VIAL ONE (07:27)
[2018-12-11] MEDS ORDERED: BIVALIRUDIN 250 MG VIAL IV ONE (07:54)
[2018-12-11] MEDS ORDERED: PRASUGREL 10 MG TABLET ONE (07:58)
[2018-12-11] MEDS ORDERED: ZALEPLON 5 MG CAPSULE PO PRN (08:01)
[2018-12-11] MEDS ORDERED: NITROGLYCERIN SL 0.4 MG TABLET SL PRN (08:01)
[2018-12-11] MEDS ORDERED: DEXTROSE 50% 25 GM/50 ML VIAL IV PRN (08:01)
[2018-12-11] MEDS ORDERED: GLUCAGON 1 MG VIAL IM PRN (08:01)
[2018-12-11] MEDS: PANTOPRAZOLE 40 MG TABLET PO SCH (09:55)
[2018-12-11] MEDS: CALCIUM CARBONATE CHEW 500 MG TABLET PO SCH ×3 (09:55→17:26)
[2018-12-11] MEDS: amLODIPine 10 MG TABLET PO SCH (09:55)
[2018-12-11] MEDS: POLYETHYLENE GLYCOL POWDER 17 GM PACK PO SCH (10:00)
[2018-12-11] MEDS: INSULIN REGULAR 100 UNIT/ML SUBCUT SCH ×4 (10:00→21:16)
[2018-12-11] MEDS: INSULIN GLARGINE 100 UNIT/ML SUBCUT SCH (10:00)
[2018-12-12] MEDS: HEPARIN 5,000 UNIT/1 ML VIAL SUBCUT SCH (01:43)
[2018-12-12 06:35] LABS: Basophils # 0.1 10*3/uL (0.0-0.2); Basophils % 0.4 % (0.0-0.8); Eosinophils # 0.7 10*3/uL (0.0-0.87); Hematocrit 27.3 VOL% (35.7-47.0); Hemoglobin 8.9 GM/DL (12.0-16.0); Immature Granulocytes % 0.9 %; Immature Granulocytes Absolute 0.12 #; Lymphocytes # 1.3 10*3/uL (1.4-4.0); Lymphocytes % 9.8 % (21.3-54.2); Mean Corpuscular HGB Conc 32.6 GM/DL (32-36); Mean Corpuscular Volume 102.2 FL (87-102); Mean Platelet Volume 10.2 FL (9.6-12.0); Monocytes % 5.6 % (1.7-12.7); NRBC # 0.04 10*3/uL; Neutrophils % 78.3 % (38.7-73.9); Platelet Count 299 T/CUMM (130-400); Red Blood Count 2.67 MC/CUMM (3.8-5.5); Red Cell Distribution Width 15.6 % (9.3-17.3); White Blood Count 13.3 T/CUMM (4-12)
[2018-12-12 06:49] LABS: Calcium 8.2 MG/DL (8.5-10.1); Osmolality,Calculated 278.8 MOS/KG (273-304)
[2018-12-12] MEDS ORDERED: POTASSIUM CHLORIDE 20 MEQ TABLET PO ONE (07:47)
[2018-12-12 08:26] VITALS: BP 101/66
[2018-12-12] MEDS ORDERED: PRASUGREL 10 MG TABLET PO SCH (09:00)
[2018-12-12] MEDS: INSULIN REGULAR 100 UNIT/ML SUBCUT SCH (10:15)
[2018-12-12] MEDS: CALCIUM CARBONATE CHEW 500 MG TABLET PO SCH (10:19)
[2018-12-12] MEDS: CARVEDILOL 12.5 MG TABLET PO SCH (10:19)
[2018-12-12] MEDS: amLODIPine 10 MG TABLET PO SCH (10:19)
[2018-12-12] MEDS: PANTOPRAZOLE 40 MG TABLET PO SCH (10:19)
[2018-12-12] MEDS: ASPIRIN EC 81 MG TABLET PO SCH (10:19)
[2018-12-12] MEDS: POLYETHYLENE GLYCOL POWDER 17 GM PACK PO SCH (10:20)
[2018-12-12] MEDS: INSULIN GLARGINE 100 UNIT/ML SUBCUT SCH (10:35)
[2018-12-12] MEDS: SODIUM CHLORIDE 0.9% 1,000 ML IV SCH (10:36)
[2018-12-12] MEDS ORDERED: ROSUVASTATIN 20 MG TABLET PO SCH (21:00)
[2018-12-13] MEDS: INSULIN REGULAR 100 UNIT/ML SUBCUT SCH (07:27)
[2018-12-13] MEDS: CALCIUM CARBONATE CHEW 500 MG TABLET PO SCH (07:28)
== END 2018-12-12 12:07 | disposition home or self-care (01) ==
LOC: EDUNIT# → EDBD → N.EDINP 10:39 → N.ED 10:39 → SUATTDRO 13:12 → N.EDINP 14:13 → N.5E 14:27 → N.TELES 12-11 08:42
PROVIDERS: ADMIT Internal Medicine; ATTEND Hospitalist
PROC: CLCCHCL (ICD-10-PCS; 2018-12-11 07:45)

== ENCOUNTER 2019-03-03 23:21 | Observation (INO) ==
[2019-03-03] MEDS ORDERED: LORazepam 2 MG/1 ML VIAL ONE (23:45)
[2019-03-04] MEDS ORDERED: hydrALAZINE 20 MG/1 ML VIAL IV STA (00:13)
[2019-03-04] MEDS ORDERED: cefTRIAXone 1,000 MG in SODIUM CHLORIDE 0.9% 100 ML IV STA (00:13)
[2019-03-04] MEDS ORDERED: ONDANSETRON 4 MG/2 ML VIAL IV STA ×2 (00:14→02:53)
[2019-03-04] MEDS ORDERED: KETOROLAC 30 MG/1 ML VIAL IV STA (01:25)
[2019-03-04] MEDS ORDERED: HYDROmorphone 2 MG/1 ML VIAL IV STA (02:53)
[2019-03-04] MEDS ORDERED: MORPHINE 4 MG/1 ML VIAL IV STA (03:10)
[2019-03-04] MEDS ORDERED: PROMETHAZINE 25 MG/1 ML VIAL IM STA (03:12)
[2019-03-04] MEDS ORDERED: GLUCAGON 1 MG VIAL IM PRN (05:12)
[2019-03-04] MEDS ORDERED: hydrALAZINE 20 MG/1 ML VIAL IV PRN (05:12)
[2019-03-04] MEDS ORDERED: DEXTROSE 50% 25 GM/50 ML VIAL IV PRN ×2 (05:12)
[2019-03-04 05:36] LABS: Basophils % 0.3 % (0.0-0.8); Eosinophils # 0.5 10*3/uL (0.0-0.87); Hematocrit 25.2 VOL% (35.7-47.0); Hemoglobin 8.2 GM/DL (12.0-16.0); Immature Granulocytes % 0.5 %; Immature Granulocytes Absolute 0.08 #; Lymphocytes # 0.8 10*3/uL (1.4-4.0); Lymphocytes % 5.3 % (21.3-54.2); Mean Corpuscular HGB Conc 32.5 GM/DL (32-36); Mean Corpuscular Volume 95.1 FL (87-102); Mean Platelet Volume 10.2 FL (9.6-12.0); Monocytes % 3.7 % (1.7-12.7); Neutrophils % 87.2 % (38.7-73.9); Platelet Count 283 T/CUMM (130-400); Red Blood Count 2.65 MC/CUMM (3.8-5.5); Red Cell Distribution Width 13.6 % (9.3-17.3); White Blood Count 15.6 T/CUMM (4-12)
[2019-03-04 06:11] LABS: Albumin 2.5 G/DL (3.4-5.0); Bilirubin,Total 0.4 MG/DL (0.2-1.0); Calcium 7.4 MG/DL (8.5-10.1); Osmolality,Calculated 286.5 MOS/KG (273-304); Total Protein 6.6 G/DL (6.4-8.3)
[2019-03-04 08:44] LABS: Basophils % 0.3 % (0.0-0.8); Eosinophils # 0.5 10*3/uL (0.0-0.87); Eosinophils % 3.6 % (0.00-10.9); Hematocrit 24.3 VOL% (35.7-47.0); Immature Granulocytes % 0.5 %; Immature Granulocytes Absolute 0.07 #; Lymphocytes % 6.6 % (21.3-54.2); Mean Corpuscular HGB Conc 32.9 GM/DL (32-36); Mean Corpuscular Volume 95.7 FL (87-102); Mean Platelet Volume 10.2 FL (9.6-12.0); Monocytes % 3.8 % (1.7-12.7); Neutrophils % 85.2 % (38.7-73.9); Platelet Count 269 T/CUMM (130-400); Red Blood Count 2.54 MC/CUMM (3.8-5.5); Red Cell Distribution Width 13.7 % (9.3-17.3); White Blood Count 14.6 T/CUMM (4-12)
[2019-03-04] MEDS ORDERED: ONDANSETRON 4 MG/2 ML VIAL IV PRN (09:04)
[2019-03-04 09:07] LABS: Calcium 7.2 MG/DL (8.5-10.1); Osmolality,Calculated 286.5 MOS/KG (273-304)
[2019-03-04] MEDS: amLODIPine 10 MG TABLET PO SCH (09:12)
[2019-03-04] MEDS: PRASUGREL 10 MG TABLET PO SCH (09:12)
[2019-03-04] MEDS: INSULIN LISPRO 100 UNIT/ML SUBCUT SCH ×4 (09:12→21:02)
[2019-03-04] MEDS: CALCIUM CARBONATE CHEW 500 MG TABLET PO SCH ×3 (09:12→16:12)
[2019-03-04] MEDS: ASPIRIN EC 81 MG TABLET PO SCH (09:12)
[2019-03-04] MEDS: INSULIN GLARGINE 100 UNIT/ML SUBCUT SCH (09:12)
[2019-03-04] MEDS: POLYETHYLENE GLYCOL POWDER 17 GM PACK PO SCH (09:16)
[2019-03-04] MEDS: cloNIDine 0.1 MG TABLET PO SCH ×2 (09:16→20:50)
[2019-03-04] MEDS: FLUTICASONE 50 MCG NASAL SPRAY 16 GM BOTTLE BOTH NARES SCH ×2 (09:18→21:48)
[2019-03-04 11:59] LABS: Sedimentation Rate-Westergren 124 MM/HR (0-20)
[2019-03-04] MEDS: CETIRIZINE 10 MG TABLET PO SCH (13:16)
[2019-03-04] MEDS: MORPHINE 4 MG/1 ML VIAL IV PRN (19:10)
[2019-03-04] MEDS ORDERED: guaiFENesin 200 MG/10 ML UDCUP PO PRN (20:34)
[2019-03-04] MEDS: ROSUVASTATIN 20 MG TABLET PO SCH (20:50)
[2019-03-04] MEDS: cefTRIAXone 1,000 MG in SYRINGE 1 EACH IV SCH (20:51)
[2019-03-05] MEDS: MORPHINE 4 MG/1 ML VIAL IV PRN ×5 (01:12→20:18)
[2019-03-05 04:55] LABS: Basophils % 0.3 % (0.0-0.8); Eosinophils % 6.8 % (0.00-10.9); Hematocrit 25.3 VOL% (35.7-47.0); Hemoglobin 8.2 GM/DL (12.0-16.0); Immature Granulocytes % 0.4 %; Immature Granulocytes Absolute 0.06 #; Lymphocytes # 1.2 10*3/uL (1.4-4.0); Mean Corpuscular HGB Conc 32.4 GM/DL (32-36); Mean Corpuscular Volume 97.3 FL (87-102); Mean Platelet Volume 10.6 FL (9.6-12.0); Monocytes % 4.8 % (1.7-12.7); Neutrophils % 79.7 % (38.7-73.9); Platelet Count 277 T/CUMM (130-400); Red Cell Distribution Width 13.7 % (9.3-17.3); White Blood Count 14.7 T/CUMM (4-12)
[2019-03-05 05:22] LABS: Calcium 8.1 MG/DL (8.5-10.1); Osmolality,Calculated 279.8 MOS/KG (273-304)
[2019-03-05] MEDS: INSULIN LISPRO 100 UNIT/ML SUBCUT SCH ×4 (08:17→20:19)
[2019-03-05] MEDS ORDERED: KETOROLAC 30 MG/1 ML VIAL IV ONE (08:29)
[2019-03-05] MEDS ORDERED: BUTALBITAL/ACETAMIN/CAFFEINE 50-325-40 MG TABLET PO ONE (08:29)
[2019-03-05] MEDS ORDERED: methylPREDNISolone SOD SUC 40 MG/1 ML VIAL IV ONE (08:30)
[2019-03-05] MEDS: CALCIUM CARBONATE CHEW 500 MG TABLET PO SCH ×3 (08:55→16:40)
[2019-03-05] MEDS: PRASUGREL 10 MG TABLET PO SCH (08:55)
[2019-03-05] MEDS: ASPIRIN EC 81 MG TABLET PO SCH (08:55)
[2019-03-05] MEDS: MONTELUKAST 10 MG TABLET PO SCH (08:55)
[2019-03-05] MEDS: CETIRIZINE 10 MG TABLET PO SCH (08:55)
[2019-03-05] MEDS: cloNIDine 0.1 MG TABLET PO SCH ×2 (08:55→20:21)
[2019-03-05] MEDS: AZITHROMYCIN 250 MG TABLET PO SCH (08:55)
[2019-03-05] MEDS: amLODIPine 10 MG TABLET PO SCH (08:56)
[2019-03-05] MEDS: FLUTICASONE 50 MCG NASAL SPRAY 16 GM BOTTLE BOTH NARES SCH ×2 (08:57→20:20)
[2019-03-05] MEDS: POLYETHYLENE GLYCOL POWDER 17 GM PACK PO SCH (08:57)
[2019-03-05] MEDS: INSULIN GLARGINE 100 UNIT/ML SUBCUT SCH (08:57)
[2019-03-05] MEDS ORDERED: VANCOMYCIN INJ 1,000 MG in SODIUM CHLORIDE 0.9% 250 ML IV ONE (10:51)
[2019-03-05] MEDS ORDERED: valACYclovir 500 MG TABLET PO ONE (10:53)
[2019-03-05] MEDS: ALBUTEROL/IPRATROPIUM 3 ML NEB RESP TX SCH (19:30)
[2019-03-05] MEDS: HEPARIN 5,000 UNIT/1 ML VIAL SUBCUT SCH (20:19)
[2019-03-05] MEDS: ROSUVASTATIN 20 MG TABLET PO SCH (20:20)
[2019-03-05] MEDS: cefTRIAXone 1,000 MG in SYRINGE 1 EACH IV SCH (20:20)
[2019-03-06] MEDS: MORPHINE 4 MG/1 ML VIAL IV PRN ×2 (00:09→06:10)
[2019-03-06] MEDS: ALBUTEROL/IPRATROPIUM 3 ML NEB RESP TX SCH ×3 (01:12→14:23)
[2019-03-06 05:06] LABS: Basophils % 0.2 % (0.0-0.8); Eosinophils % 0.3 % (0.00-10.9); Hematocrit 25.2 VOL% (35.7-47.0); Hemoglobin 8.1 GM/DL (12.0-16.0); Immature Granulocytes % 0.7 %; Immature Granulocytes Absolute 0.09 #; Lymphocytes % 7.1 % (21.3-54.2); Mean Corpuscular HGB Conc 32.1 GM/DL (32-36); Mean Corpuscular Volume 97.7 FL (87-102); Mean Platelet Volume 10.4 FL (9.6-12.0); Monocytes % 4.1 % (1.7-12.7); Neutrophils % 87.6 % (38.7-73.9); Platelet Count 316 T/CUMM (130-400); Red Blood Count 2.58 MC/CUMM (3.8-5.5); Red Cell Distribution Width 13.9 % (9.3-17.3); White Blood Count 13.8 T/CUMM (4-12)
[2019-03-06 05:31] LABS: Calcium 8.5 MG/DL (8.5-10.1); Osmolality,Calculated 283.9 MOS/KG (273-304)
[2019-03-06] MEDS: INSULIN LISPRO 100 UNIT/ML SUBCUT SCH ×2 (07:57→13:25)
[2019-03-06] MEDS: CALCIUM CARBONATE CHEW 500 MG TABLET PO SCH ×2 (07:58→13:25)
[2019-03-06] MEDS: INSULIN GLARGINE 100 UNIT/ML SUBCUT SCH (09:26)
[2019-03-06] MEDS: amLODIPine 10 MG TABLET PO SCH (09:27)
[2019-03-06] MEDS: CETIRIZINE 10 MG TABLET PO SCH (09:27)
[2019-03-06] MEDS: MONTELUKAST 10 MG TABLET PO SCH (09:27)
[2019-03-06] MEDS: PRASUGREL 10 MG TABLET PO SCH (09:28)
[2019-03-06] MEDS: cloNIDine 0.1 MG TABLET PO SCH (09:28)
[2019-03-06] MEDS: AZITHROMYCIN 250 MG TABLET PO SCH (09:28)
[2019-03-06] MEDS: FLUTICASONE 50 MCG NASAL SPRAY 16 GM BOTTLE BOTH NARES SCH (09:29)
[2019-03-06] MEDS: HEPARIN 5,000 UNIT/1 ML VIAL SUBCUT SCH (09:29)
[2019-03-06] MEDS: ASPIRIN EC 81 MG TABLET PO SCH (13:24)
[2019-03-06] MEDS: POLYETHYLENE GLYCOL POWDER 17 GM PACK PO SCH (13:25)
[2019-03-06 16:21] VITALS: BP 143/69
[2019-03-07] MEDS ORDERED: valACYclovir 500 MG TABLET PO SCH (09:00)
== END 2019-03-06 17:10 | disposition home or self-care (01) ==
LOC: EDUNIT# → EDBD → N.EDINP 23:21 → N.ED 23:21 → SUATTDRO 03-04 03:34 → N.5E 03-04 04:46
PROVIDERS: ADMIT Internal Medicine; ATTEND Internal Medicine

== ENCOUNTER 2019-03-07 12:42 | Inpatient (IN) ==
[2019-03-07] MEDS ORDERED: PROMETHAZINE 25 MG/1 ML VIAL IM PRN (14:38)
[2019-03-07] MEDS ORDERED: MORPHINE 4 MG/1 ML VIAL IV PRN (14:38)
[2019-03-07] MEDS ORDERED: ACETAMINOPHEN 325 MG TABLET PO PRN (14:38)
[2019-03-07] MEDS ORDERED: ALBUTEROL 2.5 MG/3 ML NEB RESP TX PRN (14:38)
[2019-03-07] MEDS ORDERED: ONDANSETRON 4 MG/2 ML VIAL IV PRN (14:38)
[2019-03-07 15:18] LABS: ABG Base Excess 0.7 MMOL/L (-2.5-2.5); ABG HCO3 25.1 MMOL/L (20-26); ABG Oxygen Saturation 97.7 % (95-100); ABG PCO2 41.4 MM HG (35-48); ABG PH 7.399 (7.35-7.45); ABG PO2 97.3 MM HG (80-95); ABG TCO2 23.9 MMOL/L (23-27)
[2019-03-07 15:19] LABS: Basophils # 0.1 10*3/uL (0.0-0.2); Basophils % 0.3 % (0.0-0.8); Eosinophils # 1.4 10*3/uL (0.0-0.87); Eosinophils % 9.3 % (0.00-10.9); Hemoglobin 7.7 GM/DL (12.0-16.0); Immature Granulocytes % 0.6 %; Immature Granulocytes Absolute 0.09 #; Lymphocytes # 1.5 10*3/uL (1.4-4.0); Lymphocytes % 10.5 % (21.3-54.2); Mean Corpuscular HGB Conc 32.1 GM/DL (32-36); Mean Platelet Volume 9.8 FL (9.6-12.0); Monocytes % 5.4 % (1.7-12.7); Neutrophils % 73.9 % (38.7-73.9); Platelet Count 335 T/CUMM (130-400); Red Blood Count 2.45 MC/CUMM (3.8-5.5); Red Cell Distribution Width 13.7 % (9.3-17.3); White Blood Count 14.7 T/CUMM (4-12)
[2019-03-07 15:28] LABS: PT Patient Result 10.5 SECS (9.6-12.2)
[2019-03-07] MEDS ORDERED: guaiFENesin 200 MG/10 ML UDCUP PO PRN (15:29)
[2019-03-07] MEDS ORDERED: valACYclovir 500 MG TABLET PO SCH (15:30)
[2019-03-07] MEDS ORDERED: DEXTROSE 10% 250 ML BAG IV PRN (15:40)
[2019-03-07] MEDS ORDERED: GLUCAGON 1 MG VIAL IM PRN (15:40)
[2019-03-07 15:48] LABS: Alanine Aminotransferase 18 U/L (13-56); Albumin 2.5 G/DL (3.4-5.0); Alkaline Phosphatase 107 U/L (45-117); Aspartate Amino Transferase 23 U/L (0-37); Bilirubin,Total < 0.39 MG/DL (0.2-1.0); Blood Urea Nitrogen 67 MG/DL (7-18); Calcium 8.3 MG/DL (8.5-10.1); Estimated Glom Filtration Rate 4 ML/MIN; Glucose 56 MG/DL (74-106); Osmolality,Calculated 276.8 MOS/KG (273-304); Total Protein 6.6 G/DL (6.4-8.3)
[2019-03-07] MEDS ORDERED: VANCOMYCIN INJ 1,000 MG in SODIUM CHLORIDE 0.9% 250 ML IV PRN (16:18)
[2019-03-07] MEDS: methylPREDNISolone SOD SUC 40 MG/1 ML VIAL IV SCH (16:23)
[2019-03-07] MEDS: PANTOPRAZOLE 40 MG TABLET PO SCH (16:23)
[2019-03-07] MEDS: LEVOFLOXACIN INJ 500 MG in PREMIX 1 EACH IV SCH (16:23)
[2019-03-07] MEDS: INSULIN REGULAR 100 UNIT/ML SUBCUT SCH ×2 (17:32→21:37)
[2019-03-07] MEDS: CALCIUM CARBONATE CHEW 500 MG TABLET PO SCH (17:35)
[2019-03-07] MEDS: PIPERACILLIN/TAZOBACTAM 3,375 MG in SODIUM CHLORIDE 0.9% 100 ML IV SCH (18:25)
[2019-03-07] MEDS: ALBUTEROL/IPRATROPIUM 3 ML NEB RESP TX SCH (20:07)
[2019-03-07] MEDS ORDERED: VANCOMYCIN INJ 1,000 MG in SODIUM CHLORIDE 0.9% 250 ML IV ONE (21:00)
[2019-03-07] MEDS: ROSUVASTATIN 20 MG TABLET PO SCH (21:36)
[2019-03-07] MEDS: FLUTICASONE 50 MCG NASAL SPRAY 16 GM BOTTLE BOTH NARES SCH (21:36)
[2019-03-07] MEDS: cloNIDine 0.1 MG TABLET PO SCH (21:36)
[2019-03-07] MEDS: HEPARIN 5,000 UNIT/1 ML VIAL SUBCUT SCH (21:50)
[2019-03-08] MEDS: methylPREDNISolone SOD SUC 40 MG/1 ML VIAL IV SCH ×2 (00:08→10:04)
[2019-03-08] MEDS: ALBUTEROL/IPRATROPIUM 3 ML NEB RESP TX SCH ×4 (01:13→18:56)
[2019-03-08 05:08] LABS: Basophils % 0.1 % (0.0-0.8); Hematocrit 25.3 VOL% (35.7-47.0); Hemoglobin 8.2 GM/DL (12.0-16.0); Immature Granulocytes % 0.8 %; Lymphocytes # 0.4 10*3/uL (1.4-4.0); Lymphocytes % 3.4 % (21.3-54.2); Mean Corpuscular HGB Conc 32.4 GM/DL (32-36); Mean Corpuscular Volume 96.6 FL (87-102); Mean Platelet Volume 9.9 FL (9.6-12.0); Monocytes % 0.5 % (1.7-12.7); Neutrophils % 95.2 % (38.7-73.9); Platelet Count 342 T/CUMM (130-400); Red Blood Count 2.62 MC/CUMM (3.8-5.5); Red Cell Distribution Width 13.6 % (9.3-17.3); White Blood Count 12.7 T/CUMM (4-12)
[2019-03-08] MEDS: PIPERACILLIN/TAZOBACTAM 3,375 MG in SODIUM CHLORIDE 0.9% 100 ML IV SCH (05:19)
[2019-03-08 05:53] LABS: Lymphocytes 6 % (20-55); Segmented Neutrophils 93 % (50-85); Total Cells Counted 100
[2019-03-08 05:54] LABS: Hypochromasia 1+; Macrocytosis Slight; Platelet Estimate Normal
[2019-03-08] MEDS: HEPARIN 5,000 UNIT/1 ML VIAL SUBCUT SCH ×3 (06:00→21:57)
[2019-03-08 06:06] LABS: Alanine Aminotransferase 17 U/L (13-56); Albumin 2.3 G/DL (3.4-5.0); Alkaline Phosphatase 117 U/L (45-117); Aspartate Amino Transferase 23 U/L (0-37); Bilirubin,Total < 0.39 MG/DL (0.2-1.0); Blood Urea Nitrogen 64 MG/DL (7-18); Estimated Glom Filtration Rate 4 ML/MIN; Glucose 249 MG/DL (74-106); Osmolality,Calculated 280.2 MOS/KG (273-304); Total Protein 6.6 G/DL (6.4-8.3)
[2019-03-08] MEDS: CALCIUM CARBONATE CHEW 500 MG TABLET PO SCH ×3 (10:02→17:01)
[2019-03-08] MEDS: CETIRIZINE 10 MG TABLET PO SCH (10:02)
[2019-03-08] MEDS: PANTOPRAZOLE 40 MG TABLET PO SCH (10:02)
[2019-03-08] MEDS: ASPIRIN EC 81 MG TABLET PO SCH (10:03)
[2019-03-08] MEDS: cloNIDine 0.1 MG TABLET PO SCH ×2 (10:03→21:58)
[2019-03-08] MEDS: MONTELUKAST 10 MG TABLET PO SCH (10:03)
[2019-03-08] MEDS: amLODIPine 10 MG TABLET PO SCH (10:03)
[2019-03-08] MEDS: INSULIN GLARGINE 100 UNIT/ML SUBCUT SCH (10:04)
[2019-03-08] MEDS: POLYETHYLENE GLYCOL POWDER 17 GM PACK PO SCH (10:04)
[2019-03-08] MEDS: PRASUGREL 10 MG TABLET PO SCH (10:05)
[2019-03-08] MEDS: FLUTICASONE 50 MCG NASAL SPRAY 16 GM BOTTLE BOTH NARES SCH ×2 (10:05→21:58)
[2019-03-08] MEDS: INSULIN REGULAR 100 UNIT/ML SUBCUT SCH ×4 (10:10→23:32)
[2019-03-08] MEDS: valACYclovir 500 MG TABLET PO SCH (13:12)
[2019-03-08] MEDS ORDERED: INSULIN REGULAR 100 UNIT/ML SUBCUT ONE (19:16)
[2019-03-08] MEDS: ROSUVASTATIN 20 MG TABLET PO SCH (21:57)
[2019-03-09] MEDS: ALBUTEROL/IPRATROPIUM 3 ML NEB RESP TX SCH ×4 (00:42→20:08)
[2019-03-09 04:53] LABS: Hematocrit 22.2 VOL% (35.7-47.0); Hemoglobin 7.3 GM/DL (12.0-16.0); Immature Granulocytes % 0.8 %; Immature Granulocytes Absolute 0.11 #; Lymphocytes # 0.9 10*3/uL (1.4-4.0); Lymphocytes % 6.8 % (21.3-54.2); Mean Corpuscular HGB Conc 32.9 GM/DL (32-36); Mean Corpuscular Volume 95.7 FL (87-102); Monocytes % 7.3 % (1.7-12.7); Neutrophils % 85.1 % (38.7-73.9); Platelet Count 336 T/CUMM (130-400); Red Blood Count 2.32 MC/CUMM (3.8-5.5); Red Cell Distribution Width 13.7 % (9.3-17.3); White Blood Count 13.1 T/CUMM (4-12)
[2019-03-09 05:08] LABS: Calcium 8.2 MG/DL (8.5-10.1); Osmolality,Calculated 278.1 MOS/KG (273-304)
[2019-03-09] MEDS: HEPARIN 5,000 UNIT/1 ML VIAL SUBCUT SCH ×3 (06:04→21:50)
[2019-03-09] MEDS: INSULIN REGULAR 100 UNIT/ML SUBCUT SCH ×4 (07:54→20:33)
[2019-03-09] MEDS: CALCIUM CARBONATE CHEW 500 MG TABLET PO SCH ×3 (08:55→16:49)
[2019-03-09] MEDS: PRASUGREL 10 MG TABLET PO SCH (09:54)
[2019-03-09] MEDS: CETIRIZINE 10 MG TABLET PO SCH (09:54)
[2019-03-09] MEDS: valACYclovir 500 MG TABLET PO SCH (09:54)
[2019-03-09] MEDS: PANTOPRAZOLE 40 MG TABLET PO SCH (09:55)
[2019-03-09] MEDS: cloNIDine 0.1 MG TABLET PO SCH ×2 (09:55→21:01)
[2019-03-09] MEDS: ASPIRIN EC 81 MG TABLET PO SCH (09:55)
[2019-03-09] MEDS: methylPREDNISolone SOD SUC 40 MG/1 ML VIAL IV SCH (09:55)
[2019-03-09] MEDS: MONTELUKAST 10 MG TABLET PO SCH (09:55)
[2019-03-09] MEDS: amLODIPine 10 MG TABLET PO SCH (09:55)
[2019-03-09] MEDS: POLYETHYLENE GLYCOL POWDER 17 GM PACK PO SCH (09:57)
[2019-03-09] MEDS: INSULIN GLARGINE 100 UNIT/ML SUBCUT SCH (09:57)
[2019-03-09] MEDS: FLUTICASONE 50 MCG NASAL SPRAY 16 GM BOTTLE BOTH NARES SCH ×2 (09:57→21:01)
[2019-03-09] MEDS ORDERED: SODIUM CHLORIDE 0.9% 1,000 ML IV PRN (12:54)
[2019-03-09] MEDS ORDERED: ACETAMINOPHEN 325 MG TABLET PO ONE (12:56)
[2019-03-09 13:36] LABS: Hepatitis B Surface Ag Quant < 0.10 Index; Hepatitis B Surface Ag Result Negative (Negative); Hepatitis C Virus Ab Quant 0.06 Index; Hepatitis C Virus Ab Result Negative (Negative)
[2019-03-09] MEDS: ROSUVASTATIN 20 MG TABLET PO SCH (21:01)
[2019-03-09] MEDS: LEVOFLOXACIN INJ 500 MG in PREMIX 1 EACH IV SCH (21:01)
[2019-03-10] MEDS: ALBUTEROL/IPRATROPIUM 3 ML NEB RESP TX SCH ×4 (00:32→20:34)
[2019-03-10 05:48] LABS: Basophils % 0.3 % (0.0-0.8); Eosinophils # 0.9 10*3/uL (0.0-0.87); Eosinophils % 8.3 % (0.00-10.9); Hematocrit 27.8 VOL% (35.7-47.0); Hemoglobin 9.4 GM/DL (12.0-16.0); Immature Granulocytes % 1.3 %; Immature Granulocytes Absolute 0.14 #; Lymphocytes # 1.4 10*3/uL (1.4-4.0); Mean Corpuscular HGB Conc 33.8 GM/DL (32-36); Mean Platelet Volume 9.5 FL (9.6-12.0); Monocytes % 7.3 % (1.7-12.7); Neutrophils % 69.8 % (38.7-73.9); Platelet Count 329 T/CUMM (130-400); Red Blood Count 2.99 MC/CUMM (3.8-5.5); White Blood Count 10.9 T/CUMM (4-12)
[2019-03-10] MEDS: HEPARIN 5,000 UNIT/1 ML VIAL SUBCUT SCH ×3 (06:46→21:16)
[2019-03-10] MEDS: INSULIN REGULAR 100 UNIT/ML SUBCUT SCH ×4 (07:54→20:14)
[2019-03-10] MEDS: CALCIUM CARBONATE CHEW 500 MG TABLET PO SCH ×3 (08:12→17:58)
[2019-03-10] MEDS: ASPIRIN EC 81 MG TABLET PO SCH (08:12)
[2019-03-10] MEDS: CETIRIZINE 10 MG TABLET PO SCH (08:13)
[2019-03-10] MEDS: PRASUGREL 10 MG TABLET PO SCH (08:13)
[2019-03-10] MEDS: PANTOPRAZOLE 40 MG TABLET PO SCH (08:13)
[2019-03-10] MEDS: INSULIN GLARGINE 100 UNIT/ML SUBCUT SCH (08:13)
[2019-03-10] MEDS: POLYETHYLENE GLYCOL POWDER 17 GM PACK PO SCH (08:13)
[2019-03-10] MEDS: FLUTICASONE 50 MCG NASAL SPRAY 16 GM BOTTLE BOTH NARES SCH ×2 (09:24→20:23)
[2019-03-10] MEDS: methylPREDNISolone SOD SUC 40 MG/1 ML VIAL IV SCH (09:24)
[2019-03-10] MEDS: cloNIDine 0.1 MG TABLET PO SCH ×2 (09:24→20:23)
[2019-03-10] MEDS: MONTELUKAST 10 MG TABLET PO SCH (09:24)
[2019-03-10] MEDS: amLODIPine 10 MG TABLET PO SCH (09:24)
[2019-03-10] MEDS ORDERED: HEPARIN 5,000 UNIT/1 ML VIAL ONE (09:35)
[2019-03-10] MEDS ORDERED: SODIUM CHLORIDE 0.9% 250 ML IV SCH (10:00)
[2019-03-10 10:34] LABS: Calcium 8.5 MG/DL (8.5-10.1); Osmolality,Calculated 272.2 MOS/KG (273-304)
[2019-03-10] MEDS ORDERED: MIDAZOLAM 2 MG/2 ML VIAL ONE (11:39)
[2019-03-10] MEDS ORDERED: fentaNYL 100 MCG/2 ML VIAL ONE (11:39)
[2019-03-10] MEDS ORDERED: HEPARIN 10,000 UNIT/10 ML VIAL IV SCH (17:00)
[2019-03-10] MEDS: ROSUVASTATIN 20 MG TABLET PO SCH (20:22)
[2019-03-11] MEDS: ALBUTEROL/IPRATROPIUM 3 ML NEB RESP TX SCH ×4 (00:55→20:20)
[2019-03-11] MEDS: HEPARIN 5,000 UNIT/1 ML VIAL SUBCUT SCH ×3 (06:20→22:36)
[2019-03-11] MEDS: INSULIN REGULAR 100 UNIT/ML SUBCUT SCH ×4 (10:35→20:38)
[2019-03-11] MEDS: CALCIUM CARBONATE CHEW 500 MG TABLET PO SCH ×3 (10:59→16:33)
[2019-03-11] MEDS: ASPIRIN EC 81 MG TABLET PO SCH (11:00)
[2019-03-11] MEDS: cloNIDine 0.1 MG TABLET PO SCH ×2 (11:00→20:34)
[2019-03-11] MEDS: PRASUGREL 10 MG TABLET PO SCH (11:01)
[2019-03-11] MEDS: PANTOPRAZOLE 40 MG TABLET PO SCH (11:01)
[2019-03-11] MEDS: MONTELUKAST 10 MG TABLET PO SCH (11:01)
[2019-03-11] MEDS: FLUTICASONE 50 MCG NASAL SPRAY 16 GM BOTTLE BOTH NARES SCH ×2 (11:01→20:35)
[2019-03-11] MEDS: POLYETHYLENE GLYCOL POWDER 17 GM PACK PO SCH (11:01)
[2019-03-11] MEDS: INSULIN GLARGINE 100 UNIT/ML SUBCUT SCH (11:01)
[2019-03-11] MEDS: amLODIPine 10 MG TABLET PO SCH (11:01)
[2019-03-11] MEDS: valACYclovir 500 MG TABLET PO SCH (11:02)
[2019-03-11] MEDS: methylPREDNISolone SOD SUC 40 MG/1 ML VIAL IV SCH (11:02)
[2019-03-11] MEDS: CETIRIZINE 10 MG TABLET PO SCH (11:02)
[2019-03-11] MEDS: ROSUVASTATIN 20 MG TABLET PO SCH (20:33)
[2019-03-11] MEDS: LEVOFLOXACIN INJ 500 MG in PREMIX 1 EACH IV SCH (20:34)
[2019-03-12] MEDS: ALBUTEROL/IPRATROPIUM 3 ML NEB RESP TX SCH ×3 (00:43→16:30)
[2019-03-12 04:51] LABS: Basophils % 0.1 % (0.0-0.8); Hematocrit 26.1 VOL% (35.7-47.0); Hemoglobin 8.5 GM/DL (12.0-16.0); Immature Granulocytes % 1.1 %; Immature Granulocytes Absolute 0.12 #; Lymphocytes % 9.2 % (21.3-54.2); Mean Corpuscular HGB Conc 32.6 GM/DL (32-36); Mean Corpuscular Volume 92.9 FL (87-102); Mean Platelet Volume 9.6 FL (9.6-12.0); Monocytes % 8.9 % (1.7-12.7); Neutrophils % 80.7 % (38.7-73.9); Platelet Count 298 T/CUMM (130-400); Red Blood Count 2.81 MC/CUMM (3.8-5.5); Red Cell Distribution Width 15.5 % (9.3-17.3); White Blood Count 11.1 T/CUMM (4-12)
[2019-03-12 05:22] LABS: Calcium 8.1 MG/DL (8.5-10.1); Osmolality,Calculated 275.9 MOS/KG (273-304)
[2019-03-12] MEDS: HEPARIN 5,000 UNIT/1 ML VIAL SUBCUT SCH ×2 (06:01→13:12)
[2019-03-12] MEDS: INSULIN REGULAR 100 UNIT/ML SUBCUT SCH ×3 (08:58→16:24)
[2019-03-12] MEDS: cloNIDine 0.1 MG TABLET PO SCH (09:11)
[2019-03-12] MEDS: INSULIN GLARGINE 100 UNIT/ML SUBCUT SCH (09:12)
[2019-03-12] MEDS: PRASUGREL 10 MG TABLET PO SCH (09:12)
[2019-03-12] MEDS: ASPIRIN EC 81 MG TABLET PO SCH (09:12)
[2019-03-12] MEDS: CALCIUM CARBONATE CHEW 500 MG TABLET PO SCH ×3 (09:12→18:09)
[2019-03-12] MEDS: CETIRIZINE 10 MG TABLET PO SCH (09:12)
[2019-03-12] MEDS: MONTELUKAST 10 MG TABLET PO SCH (09:12)
[2019-03-12] MEDS: POLYETHYLENE GLYCOL POWDER 17 GM PACK PO SCH (09:12)
[2019-03-12] MEDS: methylPREDNISolone SOD SUC 40 MG/1 ML VIAL IV SCH (09:13)
[2019-03-12] MEDS: FLUTICASONE 50 MCG NASAL SPRAY 16 GM BOTTLE BOTH NARES SCH (09:13)
[2019-03-12] MEDS: PANTOPRAZOLE 40 MG TABLET PO SCH (09:13)
[2019-03-12] MEDS: amLODIPine 10 MG TABLET PO SCH (09:13)
[2019-03-12 16:09] VITALS: BP 166/64
== END 2019-03-12 18:30 | disposition home or self-care (01) | DRG 202 ==
LOC: N.ICU 14:21 → SUATTDRO 14:21 → N.3E 03-08 15:46
PROVIDERS: ADMIT Internal Medicine; ATTEND Internal Medicine

== ENCOUNTER 2019-06-27 16:10 | Observation (INO) ==
[2019-06-27 17:18] LABS: Basophils % 0.6 % (0.0-0.8); Eosinophils # 0.2 10*3/uL (0.0-0.87); Eosinophils % 3.7 % (0.00-10.9); Hematocrit 38.5 VOL% (35.7-47.0); Hemoglobin 11.5 GM/DL (12.0-16.0); Immature Granulocytes % 0.6 %; Immature Granulocytes Absolute 0.04 #; Lymphocytes # 0.5 10*3/uL (1.4-4.0); Lymphocytes % 8.6 % (21.3-54.2); Mean Corpuscular HGB Conc 29.9 GM/DL (32-36); Mean Corpuscular Volume 96.5 FL (87-102); Mean Platelet Volume 9.9 FL (9.6-12.0); Monocytes % 8.1 % (1.7-12.7); Neutrophils % 78.4 % (38.7-73.9); Platelet Count 281 T/CUMM (130-400); Red Blood Count 3.99 MC/CUMM (3.8-5.5); Red Cell Distribution Width 14.9 % (9.3-17.3); White Blood Count 6.3 T/CUMM (4-12)
[2019-06-27 17:40] LABS: Alanine Aminotransferase 15 U/L (13-56); Albumin 2.6 G/DL (3.4-5.0); Alkaline Phosphatase 67 U/L (45-117); Aspartate Amino Transferase 19 U/L (0-37); Bilirubin,Total < 0.39 MG/DL (0.2-1.0); Blood Urea Nitrogen 27 MG/DL (7-18); Calcium 8.4 MG/DL (8.5-10.1); Glucose 69 MG/DL (74-106); Osmolality,Calculated 275.8 MOS/KG (273-304)
[2019-06-27 17:47] LABS: Estimated Glom Filtration Rate 0 ML/MIN
[2019-06-27] MEDS ORDERED: ACETAMINOPHEN 325 MG TABLET PO PRN (20:12)
[2019-06-27] MEDS ORDERED: GLUCAGON 1 MG VIAL IM PRN (20:12)
[2019-06-27] MEDS ORDERED: DEXTROSE 50% 25 GM/50 ML VIAL IV PRN (20:12)
[2019-06-27] MEDS ORDERED: POTASSIUM CHLORIDE 20 MEQ TABLET PO PRN (20:26)
[2019-06-27] MEDS ORDERED: MAGNESIUM SULF RIDER 2 GM in PREMIX 1 EACH IV PRN (20:26)
[2019-06-27] MEDS ORDERED: MAGNESIUM SULF RIDER 4 GM in PREMIX 1 EACH IV PRN (20:26)
[2019-06-27] MEDS: INSULIN LISPRO 100 UNIT/ML SUBCUT SCH (23:05)
[2019-06-27] MEDS: cefTRIAXone 1,000 MG in SYRINGE 1 EACH IV SCH (23:37)
[2019-06-27] MEDS: cloNIDine 0.1 MG TABLET PO SCH (23:37)
[2019-06-27] MEDS: ROSUVASTATIN 20 MG TABLET PO SCH (23:37)
[2019-06-27] MEDS: MEPERIDINE 25 MG/1 ML VIAL IV PRN (23:42)
[2019-06-28 05:40] LABS: Basophils % 0.4 % (0.0-0.8); Eosinophils # 0.2 10*3/uL (0.0-0.87); Eosinophils % 2.4 % (0.00-10.9); Hematocrit 37.2 VOL% (35.7-47.0); Hemoglobin 11.1 GM/DL (12.0-16.0); Immature Granulocytes % 0.7 %; Immature Granulocytes Absolute 0.05 #; Lymphocytes # 0.8 10*3/uL (1.4-4.0); Mean Corpuscular HGB Conc 29.8 GM/DL (32-36); Mean Corpuscular Volume 97.1 FL (87-102); Mean Platelet Volume 10.3 FL (9.6-12.0); Monocytes % 10.5 % (1.7-12.7); Platelet Count 277 T/CUMM (130-400); Red Blood Count 3.83 MC/CUMM (3.8-5.5); Red Cell Distribution Width 14.9 % (9.3-17.3); White Blood Count 7.1 T/CUMM (4-12)
[2019-06-28 05:57] LABS: Calcium 8.3 MG/DL (8.5-10.1)
[2019-06-28] MEDS: INSULIN LISPRO 100 UNIT/ML SUBCUT SCH ×4 (08:03→20:51)
[2019-06-28] MEDS: ASPIRIN EC 81 MG TABLET PO SCH (08:59)
[2019-06-28] MEDS: CALCIUM CARBONATE CHEW 500 MG TABLET PO SCH ×3 (08:59→16:36)
[2019-06-28] MEDS: amLODIPine 10 MG TABLET PO SCH (09:00)
[2019-06-28] MEDS: cloNIDine 0.1 MG TABLET PO SCH (09:00)
[2019-06-28] MEDS: HEPARIN 5,000 UNIT/1 ML VIAL SUBCUT SCH ×2 (09:00→20:50)
[2019-06-28] MEDS: PANTOPRAZOLE 40 MG TABLET PO SCH (09:00)
[2019-06-28 12:22] LABS: Neutrophils,Peritoneal Fluid 8 %
[2019-06-28 12:25] LABS: RBC,Peritoneal Fluid 165 T/CUMM
[2019-06-28] MEDS: MEPERIDINE 25 MG/1 ML VIAL IV PRN (17:30)
[2019-06-28] MEDS: ROSUVASTATIN 20 MG TABLET PO SCH (20:50)
[2019-06-28] MEDS: cefTRIAXone 1,000 MG in SYRINGE 1 EACH IV SCH (23:00)
[2019-06-29 07:34] LABS: Basophils # 0.1 10*3/uL (0.0-0.2); Basophils % 0.9 % (0.0-0.8); Eosinophils # 0.2 10*3/uL (0.0-0.87); Hematocrit 35.3 VOL% (35.7-47.0); Hemoglobin 10.8 GM/DL (12.0-16.0); Immature Granulocytes % 0.2 %; Immature Granulocytes Absolute 0.01 #; Lymphocytes % 18.8 % (21.3-54.2); Mean Corpuscular HGB Conc 30.6 GM/DL (32-36); Mean Corpuscular Volume 94.9 FL (87-102); Mean Platelet Volume 10.3 FL (9.6-12.0); Monocytes % 15.1 % (1.7-12.7); Platelet Count 284 T/CUMM (130-400); Red Blood Count 3.72 MC/CUMM (3.8-5.5); Red Cell Distribution Width 15.4 % (9.3-17.3); White Blood Count 5.4 T/CUMM (4-12)
[2019-06-29] MEDS ORDERED: CLINDAMYCIN INJ 900 MG in PREMIX 1 EACH IV ONE (07:34)
[2019-06-29 08:55] LABS: Calcium 8.3 MG/DL (8.5-10.1); Osmolality,Calculated 275.4 MOS/KG (273-304)
[2019-06-29] MEDS: INSULIN LISPRO 100 UNIT/ML SUBCUT SCH ×4 (09:22→22:26)
[2019-06-29] MEDS: PANTOPRAZOLE 40 MG TABLET PO SCH (09:23)
[2019-06-29] MEDS: amLODIPine 10 MG TABLET PO SCH (09:23)
[2019-06-29] MEDS ORDERED: LIDOCAINE 1%/EPI INJ 20 ML VIAL ONE (09:56)
[2019-06-29] MEDS ORDERED: SODIUM CHLORIDE 0.9% 250 ML IV SCH (10:30)
[2019-06-29] MEDS ORDERED: LIDOCAINE 2% 5 ML VIAL ONE (11:00)
[2019-06-29] MEDS ORDERED: propofoL 200 MG/20 ML VIAL IV ONE (11:00)
[2019-06-29] MEDS ORDERED: MIDAZOLAM 2 MG/2 ML VIAL ONE (11:00)
[2019-06-29] MEDS ORDERED: fentaNYL 100 MCG/2 ML VIAL ONE (11:01)
[2019-06-29] MEDS: CALCIUM CARBONATE CHEW 500 MG TABLET PO SCH ×3 (12:35→19:09)
[2019-06-29] MEDS: ASPIRIN EC 81 MG TABLET PO SCH (12:55)
[2019-06-29] MEDS: HEPARIN 5,000 UNIT/1 ML VIAL SUBCUT SCH ×2 (12:56→22:30)
[2019-06-29] MEDS: cefTRIAXone 1,000 MG in SYRINGE 1 EACH IV SCH (22:24)
[2019-06-29] MEDS: ROSUVASTATIN 20 MG TABLET PO SCH (22:25)
[2019-06-29] MEDS: MEPERIDINE 25 MG/1 ML VIAL IV PRN (22:29)
[2019-06-30 07:02] LABS: Basophils # 0.1 10*3/uL (0.0-0.2); Basophils % 0.8 % (0.0-0.8); Eosinophils # 0.2 10*3/uL (0.0-0.87); Eosinophils % 3.8 % (0.00-10.9); Immature Granulocytes Absolute 0.06 #; Lymphocytes # 0.6 10*3/uL (1.4-4.0); Lymphocytes % 10.5 % (21.3-54.2); Mean Corpuscular HGB Conc 29.7 GM/DL (32-36); Mean Corpuscular Volume 96.1 FL (87-102); Mean Platelet Volume 10.2 FL (9.6-12.0); Monocytes % 9.2 % (1.7-12.7); Neutrophils % 74.7 % (38.7-73.9); Platelet Count 310 T/CUMM (130-400); Red Blood Count 3.85 MC/CUMM (3.8-5.5); Red Cell Distribution Width 15.5 % (9.3-17.3); White Blood Count 6.1 T/CUMM (4-12)
[2019-06-30 07:20] LABS: Calcium 7.7 MG/DL (8.5-10.1); Osmolality,Calculated 277.7 MOS/KG (273-304)
[2019-06-30] MEDS: ASPIRIN EC 81 MG TABLET PO SCH (08:15)
[2019-06-30] MEDS: CALCIUM CARBONATE CHEW 500 MG TABLET PO SCH ×2 (08:15→14:21)
[2019-06-30] MEDS: amLODIPine 10 MG TABLET PO SCH (08:15)
[2019-06-30] MEDS: PANTOPRAZOLE 40 MG TABLET PO SCH (08:15)
[2019-06-30] MEDS: INSULIN LISPRO 100 UNIT/ML SUBCUT SCH ×2 (08:19→14:04)
[2019-06-30] MEDS: HEPARIN 5,000 UNIT/1 ML VIAL SUBCUT SCH (08:23)
[2019-06-30] MEDS ORDERED: HEPARIN 10,000 UNIT/10 ML VIAL IV SCH (11:15)
[2019-06-30] MEDS: MEPERIDINE 25 MG/1 ML VIAL IV PRN (12:13)
[2019-06-30 12:47] VITALS: BP 149/83
== END 2019-06-30 16:23 | disposition home or self-care (01) ==
LOC: EDUNIT# → EDBD → N.ED 16:10 → N.EDINP 16:10 → SUATTDRO 20:48 → N.EDINP 22:14 → N.3E 22:21
PROVIDERS: ADMIT Internal Medicine; ATTEND Internal Medicine

== ENCOUNTER 2019-07-07 20:56 | Inpatient (IN) ==
[2019-07-08] MEDS ORDERED: propofoL 200 MG/20 ML VIAL IV ONE (00:01)
[2019-07-08] MEDS ORDERED: ONDANSETRON 4 MG/2 ML VIAL IV PRN (00:36)
[2019-07-08] MEDS ORDERED: KETOROLAC 30 MG/1 ML VIAL IV PRN (00:41)
[2019-07-08] MEDS ORDERED: MEPERIDINE 50 MG/1 ML VIAL IV PRN (00:43)
[2019-07-08] MEDS: PANTOPRAZOLE 40 MG VIAL IV SCH (00:57)
[2019-07-08] MEDS ORDERED: ENOXAPARIN 40 MG/0.4 ML SYRINGE SUBCUT SCH (01:00)
[2019-07-08] MEDS ORDERED: VANCOMYCIN INJ 1,000 MG in SODIUM CHLORIDE 0.9% 250 ML IV ONE (01:01)
[2019-07-08] MEDS: NOREPINEPHRINE 16 MG in SODIUM CHLORIDE 0.9% 234 ML IV PRN (01:21)
[2019-07-08] MEDS: MIDAZOLAM 100 MG in SODIUM CHLORIDE 0.9% 80 ML IV PRN (01:21)
[2019-07-08] MEDS: HEPARIN DRIP 25,000 UNITS/500 ML PREMIX IV SCH (03:10)
[2019-07-08 04:28] LABS: ABG Base Excess -5.9 MMOL/L (-2.5-2.5); ABG HCO3 19.6 MMOL/L (20-26); ABG Oxygen Saturation 97.8 % (95-100); ABG PH 7.352 (7.35-7.45); ABG TCO2 16.8 MMOL/L (23-27); Allen Test Positive; Pt O2 Delivery Device Ventilator
[2019-07-08] MEDS: PIPERACILLIN/TAZOBACTAM 3,375 MG in SODIUM CHLORIDE 0.9% 100 ML IV SCH ×3 (06:30→23:15)
[2019-07-08 06:51] LABS: Calcium 7.5 MG/DL (8.5-10.1); Osmolality,Calculated 279.9 MOS/KG (273-304)
[2019-07-08 06:56] LABS: Troponin I 7.34 NG/ML (0.00-0.045)
[2019-07-08 06:57] LABS: Basophils % 0.2 % (0.0-0.8); Eosinophils # 0.1 10*3/uL (0.0-0.87); Eosinophils % 0.8 % (0.00-10.9); Hematocrit 39.9 VOL% (35.7-47.0); Hemoglobin 12.1 GM/DL (12.0-16.0); Immature Granulocytes Absolute 0.13 #; Lymphocytes # 1.2 10*3/uL (1.4-4.0); Lymphocytes % 9.6 % (21.3-54.2); Mean Corpuscular HGB Conc 30.3 GM/DL (32-36); Mean Platelet Volume 10.6 FL (9.6-12.0); Monocytes % 2.1 % (1.7-12.7); NRBC # 0.02 10*3/uL; Neutrophils % 86.3 % (38.7-73.9); Platelet Count 278 T/CUMM (130-400); Red Blood Count 4.29 MC/CUMM (3.8-5.5); Red Cell Distribution Width 15.9 % (9.3-17.3); White Blood Count 12.8 T/CUMM (4-12)
[2019-07-08 07:06] LABS: Band Neutrophils 3 % (0-10); Lymphocytes 12 % (20-55); Nucleated Red Blood Cells 1 (0-5); Segmented Neutrophils 84 % (50-85); Total Cells Counted 100
[2019-07-08 07:07] LABS: Burr Cells Slight; Hypochromasia 1+; Microcytosis Slight; Polychromasia Slight
[2019-07-08 07:08] LABS: Platelet Estimate Normal
[2019-07-08] MEDS ORDERED: GLUCAGON 1 MG VIAL IM PRN (07:26)
[2019-07-08] MEDS ORDERED: VANCOMYCIN INJ 1,500 MG in SODIUM CHLORIDE 0.9% 500 ML IV ONE (09:00)
[2019-07-08] MEDS: CLOPIDOGREL 75 MG TABLET PO SCH (09:30)
[2019-07-08] MEDS: ASPIRIN CHEW 81 MG TABLET PO SCH (09:30)
[2019-07-08] MEDS: INSULIN GLARGINE 100 UNIT/ML SUBCUT SCH (09:33)
[2019-07-08] MEDS: INSULIN LISPRO 100 UNIT/ML SUBCUT SCH ×2 (12:15→17:04)
[2019-07-08] MEDS ORDERED: SODIUM CHLORIDE 0.9% 1,000 ML IV PRN (12:19)
[2019-07-08 13:21] LABS: Hepatitis B Core IgM Quant 0.18 Index; Hepatitis B Surface Ag Quant < 0.10 Index; Hepatitis B Surface Ag Result Negative (Negative); Hepatitis C Virus Ab Quant 0.09 Index; Hepatitis C Virus Ab Result Negative (Negative)
[2019-07-08] MEDS ORDERED: VANCOMYCIN INJ 500 MG in SODIUM CHLORIDE 0.9% 100 ML IV PRN (15:40)
[2019-07-08] MEDS: hydrALAZINE 20 MG/1 ML VIAL IV PRN (17:59)
[2019-07-08] MEDS: ROSUVASTATIN 20 MG TABLET PO SCH (20:31)
[2019-07-08] MEDS: SODIUM CHLORIDE 0.9% 1,000 ML IV SCH ×2 (22:06)
[2019-07-09] MEDS: INSULIN LISPRO 100 UNIT/ML SUBCUT SCH ×4 (01:30→17:27)
[2019-07-09] MEDS: PANTOPRAZOLE 40 MG VIAL IV SCH (02:28)
[2019-07-09] MEDS: HEPARIN DRIP 25,000 UNITS/500 ML PREMIX IV SCH ×2 (04:02→06:00)
[2019-07-09 05:00] LABS: Basophils % 0.2 % (0.0-0.8); Eosinophils # 0.2 10*3/uL (0.0-0.87); Eosinophils % 1.9 % (0.00-10.9); Hematocrit 33.4 VOL% (35.7-47.0); Hemoglobin 10.1 GM/DL (12.0-16.0); Immature Granulocytes Absolute 0.12 #; Lymphocytes # 0.8 10*3/uL (1.4-4.0); Lymphocytes % 6.5 % (21.3-54.2); Mean Corpuscular HGB Conc 30.2 GM/DL (32-36); Mean Corpuscular Volume 94.4 FL (87-102); Mean Platelet Volume 11.6 FL (9.6-12.0); Monocytes % 1.1 % (1.7-12.7); NRBC # 0.03 10*3/uL; Neutrophils % 89.3 % (38.7-73.9); Platelet Count 254 T/CUMM (130-400); Red Blood Count 3.54 MC/CUMM (3.8-5.5); Red Cell Distribution Width 16.2 % (9.3-17.3); White Blood Count 12.3 T/CUMM (4-12)
[2019-07-09 05:27] LABS: Calcium 6.9 MG/DL (8.5-10.1); Osmolality,Calculated 289.8 MOS/KG (273-304)
[2019-07-09 05:32] LABS: Troponin I 3.62 NG/ML (0.00-0.045)
[2019-07-09 05:50] LABS: Eosinophils 2 % (0-10); Lymphocytes 4 % (20-55); Platelet Estimate Adequate; Segmented Neutrophils 91 % (50-85); Total Cells Counted 100
[2019-07-09 05:51] LABS: Hypochromasia 1+; Microcytosis Slight
[2019-07-09] MEDS: MIDAZOLAM 100 MG in SODIUM CHLORIDE 0.9% 80 ML IV PRN (05:53)
[2019-07-09] MEDS: PIPERACILLIN/TAZOBACTAM 3,375 MG in SODIUM CHLORIDE 0.9% 100 ML IV SCH ×3 (06:23→21:34)
[2019-07-09] MEDS: CLOPIDOGREL 75 MG TABLET PO SCH (08:50)
[2019-07-09] MEDS: INSULIN GLARGINE 100 UNIT/ML SUBCUT SCH (08:50)
[2019-07-09] MEDS: ASPIRIN CHEW 81 MG TABLET PO SCH (08:50)
[2019-07-09 12:37] LABS: ABG Base Excess -0.7 MMOL/L (-2.5-2.5); ABG HCO3 23.9 MMOL/L (20-26); ABG Oxygen Saturation 99.4 % (95-100); ABG PCO2 32.6 MM HG (35-48); ABG PH 7.449 (7.35-7.45); ABG TCO2 20.1 MMOL/L (23-27); Allen Test Positive; Pt O2 Delivery Device Ventilator
[2019-07-09] MEDS: ROCURONIUM 500 MG in SODIUM CHLORIDE 0.9% 500 ML IV PRN (12:39)
[2019-07-09] MEDS ORDERED: VANCOMYCIN INJ 500 MG in SODIUM CHLORIDE 0.9% 100 ML IV ONE (17:00)
[2019-07-09] MEDS: SODIUM CHLORIDE 0.9% 1,000 ML IV SCH (17:19)
[2019-07-09] MEDS: ROSUVASTATIN 20 MG TABLET PO SCH (21:24)
[2019-07-10] MEDS: MIDAZOLAM 100 MG in SODIUM CHLORIDE 0.9% 80 ML IV PRN ×2 (01:16→13:12)
[2019-07-10] MEDS: INSULIN LISPRO 100 UNIT/ML SUBCUT SCH ×5 (01:17→23:52)
[2019-07-10] MEDS: PANTOPRAZOLE 40 MG VIAL IV SCH (01:39)
[2019-07-10] MEDS: HEPARIN DRIP 25,000 UNITS/500 ML PREMIX IV SCH ×2 (04:21→10:35)
[2019-07-10] MEDS: PIPERACILLIN/TAZOBACTAM 3,375 MG in SODIUM CHLORIDE 0.9% 100 ML IV SCH ×3 (05:45→21:59)
[2019-07-10 05:53] LABS: Basophils % 0.2 % (0.0-0.8); Eosinophils # 0.3 10*3/uL (0.0-0.87); Eosinophils % 1.8 % (0.00-10.9); Hematocrit 32.3 VOL% (35.7-47.0); Hemoglobin 9.7 GM/DL (12.0-16.0); Immature Granulocytes % 1.7 %; Immature Granulocytes Absolute 0.27 #; Lymphocytes # 1.1 10*3/uL (1.4-4.0); Mean Corpuscular Volume 94.2 FL (87-102); Mean Platelet Volume 11.8 FL (9.6-12.0); Monocytes % 1.1 % (1.7-12.7); NRBC # 0.07 10*3/uL; Neutrophils % 88.2 % (38.7-73.9); Platelet Count 211 T/CUMM (130-400); Red Blood Count 3.43 MC/CUMM (3.8-5.5); Red Cell Distribution Width 16.3 % (9.3-17.3)
[2019-07-10 06:28] LABS: Calcium 6.5 MG/DL (8.5-10.1); Osmolality,Calculated 270.7 MOS/KG (273-304)
[2019-07-10 06:30] LABS: Troponin I 2.78 NG/ML (0.00-0.045)
[2019-07-10 06:48] LABS: Platelet Estimate Normal
[2019-07-10 06:49] LABS: Anisocytosis 2+
[2019-07-10 06:50] LABS: Burr Cells Few; Polychromasia Slight
[2019-07-10] MEDS: CLOPIDOGREL 75 MG TABLET PO SCH (08:23)
[2019-07-10] MEDS: ASPIRIN CHEW 81 MG TABLET PO SCH (08:24)
[2019-07-10] MEDS: INSULIN GLARGINE 100 UNIT/ML SUBCUT SCH (08:24)
[2019-07-10] MEDS: ROCURONIUM 500 MG in SODIUM CHLORIDE 0.9% 500 ML IV PRN (09:00)
[2019-07-10 12:03] LABS: Alanine Aminotransferase 9 U/L (13-56); Albumin 1.4 G/DL (3.4-5.0); Alkaline Phosphatase 129 U/L (45-117); Aspartate Amino Transferase 34 U/L (0-37); Bilirubin,Total < 0.39 MG/DL (0.2-1.0); Blood Urea Nitrogen 44 MG/DL (7-18); Calcium 7.2 MG/DL (8.5-10.1); Estimated Glom Filtration Rate 6 ML/MIN; Glucose 108 MG/DL (74-106); Osmolality,Calculated 277.4 MOS/KG (273-304); Total Protein 5.4 G/DL (6.4-8.3)
[2019-07-10] MEDS: SODIUM CHLORIDE 0.9% 1,000 ML IV SCH (12:58)
[2019-07-10 13:57] LABS: ABG Base Excess -4.4 MMOL/L (-2.5-2.5); ABG HCO3 20.8 MMOL/L (20-26); ABG Oxygen Saturation 98.1 % (95-100); ABG PCO2 35.4 MM HG (35-48); ABG PH 7.368 (7.35-7.45); ABG TCO2 18.6 MMOL/L (23-27); Pt O2 Delivery Device Ventilator
[2019-07-10] MEDS: ROSUVASTATIN 20 MG TABLET PO SCH (21:47)
[2019-07-11] MEDS: PANTOPRAZOLE 40 MG VIAL IV SCH (01:22)
[2019-07-11] MEDS: HEPARIN DRIP 25,000 UNITS/500 ML PREMIX IV SCH ×2 (01:55→16:11)
[2019-07-11 04:25] LABS: ABG Base Excess -5.1 MMOL/L (-2.5-2.5); ABG HCO3 20.1 MMOL/L (20-26); ABG Oxygen Saturation 91.4 % (95-100); ABG PCO2 39.9 MM HG (35-48); ABG PH 7.321 (7.35-7.45); ABG PO2 69.1 MM HG (80-95); Allen Test Positive; Pt O2 Delivery Device Ventilator
[2019-07-11] MEDS: INSULIN LISPRO 100 UNIT/ML SUBCUT SCH ×3 (05:50→17:30)
[2019-07-11] MEDS: MIDAZOLAM 100 MG in SODIUM CHLORIDE 0.9% 80 ML IV PRN ×2 (05:51→17:15)
[2019-07-11] MEDS: PIPERACILLIN/TAZOBACTAM 3,375 MG in SODIUM CHLORIDE 0.9% 100 ML IV SCH ×3 (06:09→20:58)
[2019-07-11 06:16] LABS: Basophils % 0.1 % (0.0-0.8); Eosinophils # 0.4 10*3/uL (0.0-0.87); Eosinophils % 1.8 % (0.00-10.9); Hematocrit 31.7 VOL% (35.7-47.0); Hemoglobin 9.5 GM/DL (12.0-16.0); Immature Granulocytes % 4.3 %; Immature Granulocytes Absolute 0.88 #; Lymphocytes # 0.7 10*3/uL (1.4-4.0); Lymphocytes % 3.5 % (21.3-54.2); Mean Corpuscular Volume 95.8 FL (87-102); Mean Platelet Volume 11.7 FL (9.6-12.0); Monocytes % 1.3 % (1.7-12.7); NRBC # 0.08 10*3/uL; Platelet Count 240 T/CUMM (130-400); Red Blood Count 3.31 MC/CUMM (3.8-5.5); White Blood Count 20.6 T/CUMM (4-12)
[2019-07-11 06:38] LABS: Calcium 7.3 MG/DL (8.5-10.1); Osmolality,Calculated 281.2 MOS/KG (273-304)
[2019-07-11 06:59] LABS: Troponin I 2.03 NG/ML (0.00-0.045)
[2019-07-11] MEDS: ROCURONIUM 500 MG in SODIUM CHLORIDE 0.9% 500 ML IV PRN ×2 (07:00→23:35)
[2019-07-11 07:07] LABS: Band Neutrophils 5 % (0-10); Eosinophils 2 % (0-10); Platelet Estimate Normal; Total Cells Counted 100
[2019-07-11 07:08] LABS: Hypochromasia 2+; Lymphocytes 5 % (20-55); Metamyelocytes 2 %; Myelocytes 1 %; Nucleated Red Blood Cells 4 (0-5); Segmented Neutrophils 84 % (50-85)
[2019-07-11 07:09] LABS: Anisocytosis 1+; Macrocytosis 1+
[2019-07-11] MEDS: INSULIN GLARGINE 100 UNIT/ML SUBCUT SCH (08:21)
[2019-07-11] MEDS: ASPIRIN CHEW 81 MG TABLET PO SCH (08:21)
[2019-07-11] MEDS: CLOPIDOGREL 75 MG TABLET PO SCH (08:21)
[2019-07-11] MEDS: SODIUM CHLORIDE 0.9% 1,000 ML IV SCH (13:17)
[2019-07-11] MEDS ORDERED: VANCOMYCIN INJ 500 MG in SODIUM CHLORIDE 0.9% 100 ML IV ONE (17:00)
[2019-07-11] MEDS: ROSUVASTATIN 20 MG TABLET PO SCH (20:58)
[2019-07-12] MEDS: INSULIN LISPRO 100 UNIT/ML SUBCUT SCH ×5 (00:14→23:41)
[2019-07-12] MEDS: PANTOPRAZOLE 40 MG VIAL IV SCH (01:32)
[2019-07-12] MEDS: HEPARIN DRIP 25,000 UNITS/500 ML PREMIX IV SCH ×2 (03:07→20:52)
[2019-07-12 03:53] LABS: ABG Base Excess -0.7 MMOL/L (-2.5-2.5); ABG HCO3 23.4 MMOL/L (20-26); ABG PCO2 44.2 MM HG (35-48); ABG PH 7.358 (7.35-7.45); ABG TCO2 23.1 MMOL/L (23-27); Allen Test Positive; Pt O2 Delivery Device Ventilator
[2019-07-12 04:06] LABS: ABG PO2 38.6 MM HG (80-95)
[2019-07-12 04:48] LABS: Basophils % 0.2 % (0.0-0.8); Eosinophils # 0.4 10*3/uL (0.0-0.87); Hemoglobin 9.6 GM/DL (12.0-16.0); Immature Granulocytes % 2.1 %; Immature Granulocytes Absolute 0.39 #; Lymphocytes # 0.7 10*3/uL (1.4-4.0); Lymphocytes % 3.8 % (21.3-54.2); Mean Corpuscular Volume 95.2 FL (87-102); Mean Platelet Volume 11.5 FL (9.6-12.0); Monocytes % 1.8 % (1.7-12.7); NRBC # 0.13 10*3/uL; Neutrophils % 90.1 % (38.7-73.9); Platelet Count 241 T/CUMM (130-400); Red Blood Count 3.36 MC/CUMM (3.8-5.5); Red Cell Distribution Width 16.9 % (9.3-17.3); White Blood Count 18.4 T/CUMM (4-12)
[2019-07-12 05:15] LABS: ABG Base Excess -1.7 MMOL/L (-2.5-2.5); ABG HCO3 23.1 MMOL/L (20-26); ABG Oxygen Saturation 91.1 % (95-100); ABG PCO2 39.1 MM HG (35-48); ABG PH 7.389 (7.35-7.45); ABG PO2 63.7 MM HG (80-95); ABG TCO2 24.3 MMOL/L (23-27)
[2019-07-12 05:19] LABS: Band Neutrophils 2 % (0-10); Eosinophils 4 % (0-10); Hypochromasia 1+; Lymphocytes 7 % (20-55); Nucleated Red Blood Cells 1 (0-5); Platelet Estimate Adequate; Segmented Neutrophils 86 % (50-85); Total Cells Counted 100
[2019-07-12] MEDS: PIPERACILLIN/TAZOBACTAM 3,375 MG in SODIUM CHLORIDE 0.9% 100 ML IV SCH ×2 (05:30→13:55)
[2019-07-12] MEDS: SODIUM CHLORIDE 0.9% 1,000 ML IV SCH ×2 (05:30→16:25)
[2019-07-12 05:40] LABS: Calcium 7.5 MG/DL (8.5-10.1); Osmolality,Calculated 278.1 MOS/KG (273-304)
[2019-07-12] MEDS: CLOPIDOGREL 75 MG TABLET PO SCH (08:18)
[2019-07-12] MEDS: ASPIRIN CHEW 81 MG TABLET PO SCH (08:18)
[2019-07-12] MEDS: INSULIN GLARGINE 100 UNIT/ML SUBCUT SCH (08:20)
[2019-07-12] MEDS: MIDAZOLAM 100 MG in SODIUM CHLORIDE 0.9% 80 ML IV PRN ×2 (08:37→20:49)
[2019-07-12] MEDS: AZITHROMYCIN INJ 500 MG in SODIUM CHLORIDE 0.9% 250 ML IV SCH (12:29)
[2019-07-12] MEDS ORDERED: ROCURONIUM 1,000 MG in SODIUM CHLORIDE 0.9% 175 ML IV PRN (15:13)
[2019-07-12] MEDS: ROCURONIUM 500 MG in SODIUM CHLORIDE 0.9% 500 ML IV PRN (18:12)
[2019-07-12] MEDS: ROSUVASTATIN 20 MG TABLET PO SCH (20:31)
[2019-07-12] MEDS: PIPERACILLIN/TAZOBACTAM 3,375 MG in SODIUM CHLORIDE 0.9% 50 ML IV SCH (20:49)
[2019-07-13] MEDS: SODIUM CHLORIDE 0.9% 1,000 ML IV SCH (00:41)
[2019-07-13] MEDS: PANTOPRAZOLE 40 MG VIAL IV SCH (00:56)
[2019-07-13] MEDS: HEPARIN DRIP 25,000 UNITS/500 ML PREMIX IV SCH (02:28)
[2019-07-13 04:39] LABS: ABG HCO3 20.8 MMOL/L (20-26); ABG PCO2 45.4 MM HG (35-48); ABG PH 7.278 (7.35-7.45); ABG PO2 43.9 MM HG (80-95); ABG TCO2 22.2 MMOL/L (23-27)
[2019-07-13 04:40] LABS: ABG Base Excess -5.8 MMOL/L (-2.5-2.5); ABG Oxygen Saturation 71.8 % (95-100)
[2019-07-13 04:40] LABS: Calcium 7.3 MG/DL (8.5-10.1); Osmolality,Calculated 282.2 MOS/KG (273-304)
[2019-07-13 05:07] LABS: Basophils # 0.1 10*3/uL (0.0-0.2); Basophils % 0.3 % (0.0-0.8); Eosinophils # 0.4 10*3/uL (0.0-0.87); Eosinophils % 2.2 % (0.00-10.9); Hematocrit 33.2 VOL% (35.7-47.0); Immature Granulocytes % 3.6 %; Immature Granulocytes Absolute 0.63 #; Lymphocytes # 0.5 10*3/uL (1.4-4.0); Lymphocytes % 2.5 % (21.3-54.2); Mean Corpuscular HGB Conc 28.9 GM/DL (32-36); Mean Corpuscular Volume 97.6 FL (87-102); Mean Platelet Volume 11.4 FL (9.6-12.0); Monocytes % 2.2 % (1.7-12.7); NRBC # 0.12 10*3/uL; Neutrophils % 89.2 % (38.7-73.9); Platelet Count 242 T/CUMM (130-400); Red Cell Distribution Width 17.2 % (9.3-17.3); White Blood Count 17.7 T/CUMM (4-12)
[2019-07-13 05:13] LABS: Hemoglobin 9.6 GM/DL (12.0-16.0)
[2019-07-13 05:24] LABS: Band Neutrophils 2 % (0-10); Eosinophils 2 % (0-10); Hypochromasia Slight; Lymphocytes 7 % (20-55); Nucleated Red Blood Cells 1 (0-5); Platelet Estimate Adequate; Segmented Neutrophils 87 % (50-85); Total Cells Counted 100
[2019-07-13] MEDS: INSULIN LISPRO 100 UNIT/ML SUBCUT SCH ×3 (06:14→17:35)
[2019-07-13] MEDS: ASPIRIN CHEW 81 MG TABLET PO SCH (08:26)
[2019-07-13] MEDS: CLOPIDOGREL 75 MG TABLET PO SCH (08:26)
[2019-07-13] MEDS: PIPERACILLIN/TAZOBACTAM 3,375 MG in SODIUM CHLORIDE 0.9% 50 ML IV SCH (08:26)
[2019-07-13] MEDS: INSULIN GLARGINE 100 UNIT/ML SUBCUT SCH (08:27)
[2019-07-13] MEDS: AZITHROMYCIN INJ 500 MG in SODIUM CHLORIDE 0.9% 250 ML IV SCH (12:15)
[2019-07-13] MEDS: ROSUVASTATIN 20 MG TABLET PO SCH (20:47)
[2019-07-14] MEDS: PANTOPRAZOLE 40 MG VIAL IV SCH (01:23)
[2019-07-14] MEDS: INSULIN LISPRO 100 UNIT/ML SUBCUT SCH ×4 (01:24→17:08)
[2019-07-14 05:58] LABS: Calcium 7.4 MG/DL (8.5-10.1); Osmolality,Calculated 288.4 MOS/KG (273-304)
[2019-07-14 06:00] LABS: Basophils # 0.1 10*3/uL (0.0-0.2); Basophils % 0.6 % (0.0-0.8); Eosinophils # 0.2 10*3/uL (0.0-0.87); Eosinophils % 1.4 % (0.00-10.9); Hematocrit 33.1 VOL% (35.7-47.0); Hemoglobin 9.7 GM/DL (12.0-16.0); Immature Granulocytes % 7.4 %; Immature Granulocytes Absolute 1.23 #; Lymphocytes # 0.5 10*3/uL (1.4-4.0); Lymphocytes % 2.8 % (21.3-54.2); Mean Corpuscular HGB Conc 29.3 GM/DL (32-36); Mean Corpuscular Volume 95.9 FL (87-102); Mean Platelet Volume 11.7 FL (9.6-12.0); Monocytes % 2.9 % (1.7-12.7); NRBC # 0.25 10*3/uL; Neutrophils % 84.9 % (38.7-73.9); Platelet Count 232 T/CUMM (130-400); Red Blood Count 3.45 MC/CUMM (3.8-5.5); Red Cell Distribution Width 17.4 % (9.3-17.3); White Blood Count 16.7 T/CUMM (4-12)
[2019-07-14 06:07] LABS: Hypochromasia Slight; Lymphocytes 6 % (20-55); Nucleated Red Blood Cells 1 (0-5); Platelet Estimate Adequate; Segmented Neutrophils 90 % (50-85); Total Cells Counted 100
[2019-07-14] MEDS: HEPARIN DRIP 25,000 UNITS/500 ML PREMIX IV SCH ×2 (06:52→20:53)
[2019-07-14] MEDS: ASPIRIN CHEW 81 MG TABLET PO SCH (08:00)
[2019-07-14] MEDS: INSULIN GLARGINE 100 UNIT/ML SUBCUT SCH (08:00)
[2019-07-14] MEDS: CLOPIDOGREL 75 MG TABLET PO SCH (08:00)
[2019-07-14] MEDS: SODIUM CHLORIDE 0.9% 1,000 ML IV SCH (08:32)
[2019-07-14] MEDS: NOREPINEPHRINE 16 MG in SODIUM CHLORIDE 0.9% 234 ML IV PRN (09:02)
[2019-07-14 10:10] LABS: ABG Base Excess -3.6 MMOL/L (-2.5-2.5); ABG HCO3 22.8 MMOL/L (20-26); ABG Oxygen Saturation 93.1 % (95-100); ABG PCO2 47.5 MM HG (35-48); ABG PO2 76.8 MM HG (80-95); ABG TCO2 24.3 MMOL/L (23-27)
[2019-07-14] MEDS: AZITHROMYCIN INJ 500 MG in SODIUM CHLORIDE 0.9% 250 ML IV SCH (12:06)
[2019-07-14] MEDS: ROSUVASTATIN 20 MG TABLET PO SCH (20:52)
[2019-07-15] MEDS: INSULIN LISPRO 100 UNIT/ML SUBCUT SCH ×4 (00:38→17:20)
[2019-07-15] MEDS: PANTOPRAZOLE 40 MG VIAL IV SCH (00:38)
[2019-07-15] MEDS: SODIUM CHLORIDE 0.9% 1,000 ML IV SCH (02:55)
[2019-07-15] MEDS: HEPARIN DRIP 25,000 UNITS/500 ML PREMIX IV SCH (02:57)
[2019-07-15 04:44] LABS: Calcium 7.6 MG/DL (8.5-10.1); Osmolality,Calculated 280.4 MOS/KG (273-304)
[2019-07-15 04:55] LABS: Basophils # 0.1 10*3/uL (0.0-0.2); Basophils % 0.5 % (0.0-0.8); Eosinophils # 0.2 10*3/uL (0.0-0.87); Eosinophils % 1.4 % (0.00-10.9); Hematocrit 32.3 VOL% (35.7-47.0); Immature Granulocytes % 8.1 %; Immature Granulocytes Absolute 1.24 #; Lymphocytes # 0.9 10*3/uL (1.4-4.0); Mean Corpuscular HGB Conc 29.4 GM/DL (32-36); Monocytes % 2.9 % (1.7-12.7); NRBC # 0.17 10*3/uL; Neutrophils % 81.1 % (38.7-73.9); Platelet Count 218 T/CUMM (130-400); Red Blood Count 3.33 MC/CUMM (3.8-5.5); Red Cell Distribution Width 17.4 % (9.3-17.3); White Blood Count 15.4 T/CUMM (4-12)
[2019-07-15 04:59] LABS: Hemoglobin 9.5 GM/DL (12.0-16.0)
[2019-07-15 05:04] LABS: Band Neutrophils 2 % (0-10); Eosinophils 2 % (0-10); Hypochromasia 1+; Lymphocytes 13 % (20-55); Microcytosis Slight; Nucleated Red Blood Cells 1 (0-5); Platelet Estimate Adequate; Segmented Neutrophils 80 % (50-85); Total Cells Counted 100
[2019-07-15] MEDS: ASPIRIN CHEW 81 MG TABLET PO SCH (08:29)
[2019-07-15] MEDS: INSULIN GLARGINE 100 UNIT/ML SUBCUT SCH (08:30)
[2019-07-15] MEDS: CLOPIDOGREL 75 MG TABLET PO SCH (08:30)
[2019-07-15 09:58] LABS: ABG Base Excess -1.6 MMOL/L (-2.5-2.5); ABG Oxygen Saturation 92.2 % (95-100); ABG PCO2 42.9 MM HG (35-48); ABG PH 7.354 (7.35-7.45); ABG PO2 68.7 MM HG (80-95); ABG TCO2 21.9 MMOL/L (23-27); Pt O2 Delivery Device Ventilator
[2019-07-15] MEDS: AZITHROMYCIN INJ 500 MG in SODIUM CHLORIDE 0.9% 250 ML IV SCH (12:11)
[2019-07-15] MEDS: ROSUVASTATIN 20 MG TABLET PO SCH (20:40)
[2019-07-16] MEDS: INSULIN LISPRO 100 UNIT/ML SUBCUT SCH ×4 (00:15→18:30)
[2019-07-16] MEDS: PANTOPRAZOLE 40 MG VIAL IV SCH (00:16)
[2019-07-16] MEDS: HEPARIN DRIP 25,000 UNITS/500 ML PREMIX IV SCH (05:43)
[2019-07-16] MEDS: CLOPIDOGREL 75 MG TABLET PO SCH (08:14)
[2019-07-16] MEDS: INSULIN GLARGINE 100 UNIT/ML SUBCUT SCH (08:15)
[2019-07-16] MEDS: ASPIRIN CHEW 81 MG TABLET PO SCH (08:15)
[2019-07-16 08:50] LABS: ABG Base Excess -2.6 MMOL/L (-2.5-2.5); ABG HCO3 22.2 MMOL/L (20-26); ABG Oxygen Saturation 96.9 % (95-100); ABG PCO2 37.4 MM HG (35-48); ABG PH 7.381 (7.35-7.45); ABG PO2 94.6 MM HG (80-95); ABG TCO2 20.2 MMOL/L (23-27); Pt O2 Delivery Device Ventilator
[2019-07-16] MEDS: hydrALAZINE 20 MG/1 ML VIAL IV PRN ×3 (09:17→21:17)
[2019-07-16 09:51] LABS: Basophils % 0.2 % (0.0-0.8); Eosinophils # 0.4 10*3/uL (0.0-0.87); Eosinophils % 2.8 % (0.00-10.9); Hematocrit 32.8 VOL% (35.7-47.0); Hemoglobin 9.6 GM/DL (12.0-16.0); Immature Granulocytes % 5.4 %; Immature Granulocytes Absolute 0.71 #; Lymphocytes # 0.5 10*3/uL (1.4-4.0); Lymphocytes % 3.8 % (21.3-54.2); Mean Corpuscular HGB Conc 29.3 GM/DL (32-36); Mean Corpuscular Volume 96.5 FL (87-102); Mean Platelet Volume 11.9 FL (9.6-12.0); Monocytes % 3.2 % (1.7-12.7); NRBC # 0.08 10*3/uL; Neutrophils % 84.6 % (38.7-73.9); Platelet Count 190 T/CUMM (130-400); Red Cell Distribution Width 17.8 % (9.3-17.3); White Blood Count 13.3 T/CUMM (4-12)
[2019-07-16 10:27] LABS: Albumin 1.1 G/DL (3.4-5.0); Bilirubin,Total 0.4 MG/DL (0.2-1.0); Calcium 8.2 MG/DL (8.5-10.1); Osmolality,Calculated 294.1 MOS/KG (273-304); Total Protein 6.2 G/DL (6.4-8.3)
[2019-07-16 10:46] LABS: Anisocytosis 1+; Band Neutrophils 12 % (0-10); Lymphocytes 8 % (20-55); Nucleated Red Blood Cells 2 (0-5); Platelet Estimate Normal; Segmented Neutrophils 76 % (50-85); Total Cells Counted 100
[2019-07-16 10:47] LABS: Macrocytosis 1+
[2019-07-16] MEDS: AZITHROMYCIN INJ 500 MG in SODIUM CHLORIDE 0.9% 250 ML IV SCH (12:55)
[2019-07-16] MEDS: SODIUM CHLORIDE 0.9% 1,000 ML IV SCH (18:31)
[2019-07-16] MEDS: ROSUVASTATIN 20 MG TABLET PO SCH (20:32)
[2019-07-17] MEDS: INSULIN LISPRO 100 UNIT/ML SUBCUT SCH ×4 (00:36→17:00)
[2019-07-17] MEDS: DEXTROSE 10% 250 ML BAG IV PRN ×2 (00:41→05:56)
[2019-07-17] MEDS: SODIUM CHLORIDE 0.9% 1,000 ML IV SCH ×2 (01:06→11:59)
[2019-07-17] MEDS: PANTOPRAZOLE 40 MG VIAL IV SCH (01:32)
[2019-07-17] MEDS: HEPARIN DRIP 25,000 UNITS/500 ML PREMIX IV SCH (02:24)
[2019-07-17 04:10] LABS: ABG Base Excess 0.2 MMOL/L (-2.5-2.5); ABG HCO3 25.3 MMOL/L (20-26); ABG Oxygen Saturation 78.8 % (95-100); ABG PCO2 42.8 MM HG (35-48); ABG PH 7.389 (7.35-7.45); ABG PO2 46.7 MM HG (80-95); ABG TCO2 26.6 MMOL/L (23-27); Allen Test Positive; Pt O2 Delivery Device Ventilator
[2019-07-17 04:41] LABS: Basophils % 0.3 % (0.0-0.8); Eosinophils # 0.1 10*3/uL (0.0-0.87); Eosinophils % 1.1 % (0.00-10.9); Hematocrit 31.6 VOL% (35.7-47.0); Hemoglobin 9.4 GM/DL (12.0-16.0); Immature Granulocytes % 2.4 %; Immature Granulocytes Absolute 0.29 #; Lymphocytes # 0.4 10*3/uL (1.4-4.0); Lymphocytes % 3.2 % (21.3-54.2); Mean Corpuscular HGB Conc 29.7 GM/DL (32-36); Mean Platelet Volume 12.4 FL (9.6-12.0); Monocytes % 3.8 % (1.7-12.7); NRBC # 0.04 10*3/uL; Neutrophils % 89.2 % (38.7-73.9); Platelet Count 133 T/CUMM (130-400); Red Blood Count 3.36 MC/CUMM (3.8-5.5); Red Cell Distribution Width 17.5 % (9.3-17.3); White Blood Count 11.8 T/CUMM (4-12)
[2019-07-17 05:13] LABS: Calcium 8.1 MG/DL (8.5-10.1); Osmolality,Calculated 284.8 MOS/KG (273-304)
[2019-07-17 06:47] LABS: Anisocytosis Slight; Band Neutrophils 1 % (0-10); Eosinophils 1 % (0-10); Hypochromasia Slight; Lymphocytes 5 % (20-55); Platelet Estimate Normal; Polychromasia Slight; Segmented Neutrophils 89 % (50-85); Total Cells Counted 100
[2019-07-17 06:48] LABS: Target Cells Slight
[2019-07-17 06:49] LABS: Stomatocytes Slight
[2019-07-17] MEDS: CLOPIDOGREL 75 MG TABLET PO SCH (08:55)
[2019-07-17] MEDS: INSULIN GLARGINE 100 UNIT/ML SUBCUT SCH (08:55)
[2019-07-17] MEDS: ASPIRIN CHEW 81 MG TABLET PO SCH (08:55)
[2019-07-17] MEDS: MULTIVITAMIN (BEROCCA) TABLET PO SCH (08:55)
[2019-07-17] MEDS ORDERED: POTASSIUM CHLORIDE 20 MEQ/15 ML UDCUP PER TUBE ONE (09:32)
[2019-07-17] MEDS: methylPREDNISolone SOD SUC 40 MG/1 ML VIAL IV SCH ×2 (10:50→17:00)
[2019-07-17] MEDS: AZITHROMYCIN INJ 500 MG in SODIUM CHLORIDE 0.9% 250 ML IV SCH (14:00)
[2019-07-17] MEDS ORDERED: MORPHINE 4 MG/1 ML VIAL ONE (18:33)
[2019-07-17] MEDS: MORPHINE 4 MG/1 ML VIAL IV PRN (18:41)
[2019-07-17] MEDS: hydrALAZINE 20 MG/1 ML VIAL IV PRN (20:44)
[2019-07-17] MEDS: ROSUVASTATIN 20 MG TABLET PO SCH (20:45)
[2019-07-18] MEDS: PANTOPRAZOLE 40 MG VIAL IV SCH
[2019-07-18] MEDS: INSULIN LISPRO 100 UNIT/ML SUBCUT SCH ×5 (00:18→23:43)
[2019-07-18] MEDS: hydrALAZINE 20 MG/1 ML VIAL IV PRN ×2 (00:20→04:05)
[2019-07-18] MEDS: MORPHINE 4 MG/1 ML VIAL IV PRN ×3 (00:20→23:43)
[2019-07-18] MEDS: HEPARIN DRIP 25,000 UNITS/500 ML PREMIX IV SCH (01:43)
[2019-07-18] MEDS: methylPREDNISolone SOD SUC 40 MG/1 ML VIAL IV SCH ×3 (01:43→17:12)
[2019-07-18 04:18] LABS: ABG Base Excess -1.9 MMOL/L (-2.5-2.5); ABG HCO3 22.7 MMOL/L (20-26); ABG Oxygen Saturation 95.7 % (95-100); ABG PCO2 38.4 MM HG (35-48); ABG PH 7.383 (7.35-7.45); ABG TCO2 20.9 MMOL/L (23-27); Allen Test Positive; Pt O2 Delivery Device Ventilator
[2019-07-18 04:40] LABS: Calcium 8.4 MG/DL (8.5-10.1); Osmolality,Calculated 293.2 MOS/KG (273-304)
[2019-07-18 04:41] LABS: Basophils % 0.2 % (0.0-0.8); Hematocrit 30.6 VOL% (35.7-47.0); Hemoglobin 9.2 GM/DL (12.0-16.0); Immature Granulocytes % 2.4 %; Immature Granulocytes Absolute 0.26 #; Lymphocytes # 0.5 10*3/uL (1.4-4.0); Lymphocytes % 4.4 % (21.3-54.2); Mean Corpuscular HGB Conc 30.1 GM/DL (32-36); Mean Corpuscular Volume 94.2 FL (87-102); Monocytes % 3.8 % (1.7-12.7); NRBC # 0.05 10*3/uL; Neutrophils % 89.2 % (38.7-73.9); Platelet Count 140 T/CUMM (130-400); Red Blood Count 3.25 MC/CUMM (3.8-5.5); Red Cell Distribution Width 17.7 % (9.3-17.3); White Blood Count 10.9 T/CUMM (4-12)
[2019-07-18 05:53] LABS: Lymphocytes 5 % (20-55); Segmented Neutrophils 89 % (50-85); Total Cells Counted 100
[2019-07-18 05:54] LABS: Anisocytosis 1+; Hypochromasia Slight; Platelet Estimate Normal; Target Cells Few
[2019-07-18] MEDS: CLOPIDOGREL 75 MG TABLET PO SCH (08:45)
[2019-07-18] MEDS: MULTIVITAMIN (BEROCCA) TABLET PO SCH (08:45)
[2019-07-18] MEDS: ASPIRIN CHEW 81 MG TABLET PO SCH (08:45)
[2019-07-18] MEDS: SODIUM CHLORIDE 0.9% 1,000 ML IV SCH (12:57)
[2019-07-18] MEDS: AZITHROMYCIN INJ 500 MG in SODIUM CHLORIDE 0.9% 250 ML IV SCH (12:57)
[2019-07-18] MEDS: ROSUVASTATIN 20 MG TABLET PO SCH (20:34)
[2019-07-19] MEDS: PANTOPRAZOLE 40 MG VIAL IV SCH
[2019-07-19] MEDS: methylPREDNISolone SOD SUC 40 MG/1 ML VIAL IV SCH ×3 (02:00→18:00)
[2019-07-19] MEDS: HEPARIN DRIP 25,000 UNITS/500 ML PREMIX IV SCH (02:29)
[2019-07-19] MEDS: hydrALAZINE 20 MG/1 ML VIAL IV PRN ×2 (03:02→12:14)
[2019-07-19] MEDS: MORPHINE 4 MG/1 ML VIAL IV PRN (04:05)
[2019-07-19 04:29] LABS: ABG HCO3 24.4 MMOL/L (20-26); ABG Oxygen Saturation 94.8 % (95-100); ABG PCO2 45.1 MM HG (35-48); ABG PH 7.363 (7.35-7.45); ABG PO2 79.5 MM HG (80-95); ABG TCO2 23.5 MMOL/L (23-27); Allen Test Positive; Pt O2 Delivery Device Ventilator
[2019-07-19] MEDS: INSULIN LISPRO 100 UNIT/ML SUBCUT SCH ×3 (05:30→17:59)
[2019-07-19 05:57] LABS: Basophils % 0.2 % (0.0-0.8); Hematocrit 33.7 VOL% (35.7-47.0); Hemoglobin 9.9 GM/DL (12.0-16.0); Immature Granulocytes % 1.6 %; Immature Granulocytes Absolute 0.23 #; Lymphocytes # 0.4 10*3/uL (1.4-4.0); Mean Corpuscular HGB Conc 29.4 GM/DL (32-36); Mean Corpuscular Volume 94.9 FL (87-102); Mean Platelet Volume 12.3 FL (9.6-12.0); Monocytes % 3.6 % (1.7-12.7); NRBC # 0.04 10*3/uL; Neutrophils % 91.6 % (38.7-73.9); Platelet Count 176 T/CUMM (130-400); Red Blood Count 3.55 MC/CUMM (3.8-5.5); Red Cell Distribution Width 17.6 % (9.3-17.3); White Blood Count 14.5 T/CUMM (4-12)
[2019-07-19 06:12] LABS: Calcium 8.4 MG/DL (8.5-10.1); Osmolality,Calculated 287.5 MOS/KG (273-304)
[2019-07-19 08:06] LABS: Band Neutrophils 12 % (0-10); Eosinophils 1 % (0-10); Lymphocytes 2 % (20-55); Metamyelocytes 1 %; Nucleated Red Blood Cells 1 (0-5); Platelet Estimate Normal; Segmented Neutrophils 81 % (50-85); Total Cells Counted 100
[2019-07-19 08:07] LABS: Anisocytosis 1+; Macrocytosis 1+; Target Cells Few
[2019-07-19] MEDS: CLOPIDOGREL 75 MG TABLET PO SCH (08:37)
[2019-07-19] MEDS: MULTIVITAMIN (BEROCCA) TABLET PO SCH (08:37)
[2019-07-19] MEDS: ASPIRIN CHEW 81 MG TABLET PO SCH (08:37)
[2019-07-19] MEDS: AZITHROMYCIN INJ 500 MG in SODIUM CHLORIDE 0.9% 250 ML IV SCH (12:36)
[2019-07-19] MEDS: ROSUVASTATIN 20 MG TABLET PO SCH (20:37)
[2019-07-20] MEDS: INSULIN LISPRO 100 UNIT/ML SUBCUT SCH ×4 (00:39→18:21)
[2019-07-20] MEDS: hydrALAZINE 20 MG/1 ML VIAL IV PRN ×2 (00:41→21:15)
[2019-07-20] MEDS: MORPHINE 4 MG/1 ML VIAL IV PRN (00:41)
[2019-07-20] MEDS: SODIUM CHLORIDE 0.9% 1,000 ML IV SCH ×2 (00:42→17:02)
[2019-07-20] MEDS: PANTOPRAZOLE 40 MG VIAL IV SCH (00:42)
[2019-07-20] MEDS: methylPREDNISolone SOD SUC 40 MG/1 ML VIAL IV SCH ×3 (02:00→17:02)
[2019-07-20] MEDS: HEPARIN DRIP 25,000 UNITS/500 ML PREMIX IV SCH (03:00)
[2019-07-20 04:51] LABS: ABG Base Excess -1.9 MMOL/L (-2.5-2.5); ABG HCO3 23.7 MMOL/L (20-26); ABG Oxygen Saturation 97.3 % (95-100); ABG PCO2 43.6 MM HG (35-48); ABG PH 7.353 (7.35-7.45); ABG PO2 103.3 MM HG (80-95); Allen Test Positive; Pt O2 Delivery Device Ventilator
[2019-07-20 05:00] LABS: Basophils % 0.2 % (0.0-0.8); Hematocrit 32.2 VOL% (35.7-47.0); Immature Granulocytes % 0.9 %; Immature Granulocytes Absolute 0.12 #; Lymphocytes # 0.4 10*3/uL (1.4-4.0); Lymphocytes % 2.9 % (21.3-54.2); Mean Corpuscular HGB Conc 28.9 GM/DL (32-36); Mean Corpuscular Volume 96.1 FL (87-102); Mean Platelet Volume 11.9 FL (9.6-12.0); Monocytes % 5.6 % (1.7-12.7); NRBC # 0.02 10*3/uL; Neutrophils % 90.4 % (38.7-73.9); Platelet Count 167 T/CUMM (130-400); Red Blood Count 3.35 MC/CUMM (3.8-5.5); Red Cell Distribution Width 17.5 % (9.3-17.3); White Blood Count 12.8 T/CUMM (4-12)
[2019-07-20 05:12] LABS: Calcium 8.3 MG/DL (8.5-10.1); Osmolality,Calculated 298.4 MOS/KG (273-304)
[2019-07-20 05:21] LABS: Hemoglobin 9.3 GM/DL (12.0-16.0)
[2019-07-20 05:28] LABS: Eosinophils 1 % (0-10); Hypochromasia 1+; Lymphocytes 2 % (20-55); Segmented Neutrophils 92 % (50-85); Total Cells Counted 100
[2019-07-20 05:29] LABS: Macrocytosis 1+; Platelet Estimate Adequate
[2019-07-20] MEDS: CLOPIDOGREL 75 MG TABLET PO SCH (08:11)
[2019-07-20] MEDS: ASPIRIN CHEW 81 MG TABLET PO SCH (08:11)
[2019-07-20] MEDS: MULTIVITAMIN (BEROCCA) TABLET PO SCH (08:11)
[2019-07-20] MEDS: ROSUVASTATIN 20 MG TABLET PO SCH (20:51)
[2019-07-21] MEDS: INSULIN LISPRO 100 UNIT/ML SUBCUT SCH ×4 (00:16→17:38)
[2019-07-21] MEDS: PANTOPRAZOLE 40 MG VIAL IV SCH (00:17)
[2019-07-21] MEDS: methylPREDNISolone SOD SUC 40 MG/1 ML VIAL IV SCH ×3 (02:15→17:04)
[2019-07-21 04:14] LABS: ABG Base Excess -2.7 MMOL/L (-2.5-2.5); ABG HCO3 24.1 MMOL/L (20-26); ABG Oxygen Saturation 96.6 % (95-100); ABG PCO2 51.7 MM HG (35-48); ABG PH 7.286 (7.35-7.45); ABG PO2 98.9 MM HG (80-95); ABG TCO2 25.7 MMOL/L (23-27); Allen Test Positive; Pt O2 Delivery Device Ventilator
[2019-07-21 05:08] LABS: Calcium 8.1 MG/DL (8.5-10.1); Osmolality,Calculated 309.4 MOS/KG (273-304)
[2019-07-21 05:41] LABS: Basophils % 0.1 % (0.0-0.8); Hematocrit 30.7 VOL% (35.7-47.0); Immature Granulocytes % 0.9 %; Immature Granulocytes Absolute 0.13 #; Lymphocytes # 0.4 10*3/uL (1.4-4.0); Lymphocytes % 2.7 % (21.3-54.2); Mean Corpuscular HGB Conc 29.3 GM/DL (32-36); Mean Corpuscular Volume 95.6 FL (87-102); Mean Platelet Volume 12.8 FL (9.6-12.0); Monocytes % 5.3 % (1.7-12.7); NRBC # 0.02 10*3/uL; Platelet Count 187 T/CUMM (130-400); Red Blood Count 3.21 MC/CUMM (3.8-5.5); Red Cell Distribution Width 17.7 % (9.3-17.3); White Blood Count 13.9 T/CUMM (4-12)
[2019-07-21 05:49] LABS: Hypochromasia 1+; Lymphocytes 2 % (20-55); Ovalocytes Slight; Platelet Estimate Adequate; Segmented Neutrophils 95 % (50-85); Total Cells Counted 100
[2019-07-21] MEDS: HEPARIN DRIP 25,000 UNITS/500 ML PREMIX IV SCH (06:44)
[2019-07-21] MEDS: CLOPIDOGREL 75 MG TABLET PO SCH (08:24)
[2019-07-21] MEDS: MULTIVITAMIN (BEROCCA) TABLET PO SCH (08:24)
[2019-07-21] MEDS: ASPIRIN CHEW 81 MG TABLET PO SCH (08:24)
[2019-07-21] MEDS: amLODIPine 10 MG TABLET PO SCH (09:19)
[2019-07-21] MEDS ORDERED: NOREPINEPHRINE 4 MG/4 ML VIAL IV ONE ×2 (15:04→15:15)
[2019-07-21] MEDS: NOREPINEPHRINE 16 MG in SODIUM CHLORIDE 0.9% 234 ML IV PRN (15:22)
[2019-07-21] MEDS: SODIUM CHLORIDE 0.9% 1,000 ML IV SCH (15:29)
[2019-07-21] MEDS: FLUCONAZOLE 200 MG TABLET PO SCH (17:04)
[2019-07-21] MEDS: cefTRIAXone 1,000 MG in SYRINGE 1 EACH IV SCH (17:06)
[2019-07-21] MEDS: MORPHINE 4 MG/1 ML VIAL IV PRN ×2 (18:05→23:10)
[2019-07-21] MEDS: ROSUVASTATIN 20 MG TABLET PO SCH (20:22)
[2019-07-21] MEDS ORDERED: INSULIN GLARGINE 100 UNIT/ML SUBCUT SCH (21:00)
[2019-07-22] MEDS: INSULIN LISPRO 100 UNIT/ML SUBCUT SCH ×5 (00:26→23:49)
[2019-07-22] MEDS: PANTOPRAZOLE 40 MG VIAL IV SCH (00:35)
[2019-07-22] MEDS: methylPREDNISolone SOD SUC 40 MG/1 ML VIAL IV SCH ×3 (01:00→18:00)
[2019-07-22 04:01] LABS: ABG Base Excess -1.1 MMOL/L (-2.5-2.5); ABG HCO3 23.5 MMOL/L (20-26); ABG Oxygen Saturation 99.3 % (95-100); ABG PCO2 50.3 MM HG (35-48); ABG PH 7.313 (7.35-7.45); ABG TCO2 23.7 MMOL/L (23-27); Allen Test Positive; Pt O2 Delivery Device Ventilator
[2019-07-22 05:57] LABS: Calcium 7.6 MG/DL (8.5-10.1); Osmolality,Calculated 303.8 MOS/KG (273-304)
[2019-07-22] MEDS: HEPARIN DRIP 25,000 UNITS/500 ML PREMIX IV SCH (06:06)
[2019-07-22 06:45] LABS: Basophils % 0.1 % (0.0-0.8); Hematocrit 27.9 VOL% (35.7-47.0); Hemoglobin 8.1 GM/DL (12.0-16.0); Immature Granulocytes Absolute 0.62 #; Lymphocytes # 0.3 10*3/uL (1.4-4.0); Lymphocytes % 1.6 % (21.3-54.2); Mean Corpuscular Volume 96.5 FL (87-102); Mean Platelet Volume 12.8 FL (9.6-12.0); Monocytes % 6.4 % (1.7-12.7); NRBC # 0.02 10*3/uL; Neutrophils % 88.9 % (38.7-73.9); Platelet Count 152 T/CUMM (130-400); Red Blood Count 2.89 MC/CUMM (3.8-5.5); Red Cell Distribution Width 17.9 % (9.3-17.3); White Blood Count 20.6 T/CUMM (4-12)
[2019-07-22 06:56] LABS: Anisocytosis 1+; Band Neutrophils 3 % (0-10); Hypochromasia 1+; Lymphocytes 1 % (20-55); Macrocytosis 1+; Segmented Neutrophils 91 % (50-85); Total Cells Counted 100
[2019-07-22 06:57] LABS: Platelet Estimate Adequate
[2019-07-22] MEDS: FLUCONAZOLE 200 MG TABLET PO SCH (08:22)
[2019-07-22] MEDS: MULTIVITAMIN (BEROCCA) TABLET PO SCH (08:23)
[2019-07-22] MEDS: CLOPIDOGREL 75 MG TABLET PO SCH (08:23)
[2019-07-22] MEDS: amLODIPine 10 MG TABLET PO SCH (08:23)
[2019-07-22] MEDS: ASPIRIN CHEW 81 MG TABLET PO SCH (08:23)
[2019-07-22] MEDS: SODIUM CHLORIDE 0.9% 1,000 ML IV SCH (11:42)
[2019-07-22] MEDS ORDERED: INSULIN GLARGINE 100 UNIT/ML SUBCUT SCH (16:36)
[2019-07-22] MEDS: cefTRIAXone 1,000 MG in SYRINGE 1 EACH IV SCH (18:00)
[2019-07-22] MEDS: ROSUVASTATIN 20 MG TABLET PO SCH (21:48)
[2019-07-23] MEDS: methylPREDNISolone SOD SUC 40 MG/1 ML VIAL IV SCH ×3 (01:30→17:55)
[2019-07-23] MEDS: PANTOPRAZOLE 40 MG VIAL IV SCH (01:30)
[2019-07-23] MEDS: hydrALAZINE 20 MG/1 ML VIAL IV PRN (02:55)
[2019-07-23 04:14] LABS: ABG Base Excess -1.2 MMOL/L (-2.5-2.5); ABG HCO3 23.3 MMOL/L (20-26); ABG Oxygen Saturation 91.2 % (95-100); ABG PCO2 46.7 MM HG (35-48); ABG PH 7.334 (7.35-7.45); ABG PO2 65.7 MM HG (80-95); ABG TCO2 23.2 MMOL/L (23-27); Allen Test Positive; Pt O2 Delivery Device Ventilator
[2019-07-23 04:50] LABS: Basophils % 0.1 % (0.0-0.8); Hematocrit 26.1 VOL% (35.7-47.0); Hemoglobin 7.4 GM/DL (12.0-16.0); Immature Granulocytes % 1.3 %; Immature Granulocytes Absolute 0.26 #; Lymphocytes # 0.4 10*3/uL (1.4-4.0); Lymphocytes % 1.9 % (21.3-54.2); Mean Corpuscular HGB Conc 28.4 GM/DL (32-36); Mean Corpuscular Volume 98.5 FL (87-102); Monocytes % 7.7 % (1.7-12.7); Platelet Count 171 T/CUMM (130-400); Red Blood Count 2.65 MC/CUMM (3.8-5.5); White Blood Count 19.4 T/CUMM (4-12)
[2019-07-23 05:19] LABS: Calcium 7.6 MG/DL (8.5-10.1); Osmolality,Calculated 314.8 MOS/KG (273-304)
[2019-07-23 05:34] LABS: Hypochromasia 1+; Lymphocytes 3 % (20-55); Macrocytosis Slight; Platelet Estimate Adequate; Segmented Neutrophils 92 % (50-85); Total Cells Counted 100
[2019-07-23] MEDS: INSULIN LISPRO 100 UNIT/ML SUBCUT SCH ×3 (05:59→17:55)
[2019-07-23] MEDS: HEPARIN DRIP 25,000 UNITS/500 ML PREMIX IV SCH (06:38)
[2019-07-23] MEDS: carvediloL 6.25 MG TABLET PO SCH ×2 (08:09→20:37)
[2019-07-23] MEDS: ASPIRIN CHEW 81 MG TABLET PO SCH (08:10)
[2019-07-23] MEDS: CLOPIDOGREL 75 MG TABLET PO SCH (08:10)
[2019-07-23] MEDS: FLUCONAZOLE 200 MG TABLET PO SCH (08:10)
[2019-07-23] MEDS: MULTIVITAMIN (BEROCCA) TABLET PO SCH (08:10)
[2019-07-23] MEDS: amLODIPine 10 MG TABLET PO SCH (08:10)
[2019-07-23] MEDS ORDERED: AMIKACIN 500 MG in SODIUM CHLORIDE 0.9% 100 ML IV PRN (11:49)
[2019-07-23] MEDS ORDERED: AMIKACIN 500 MG in SODIUM CHLORIDE 0.9% 100 ML IV ONE (17:00)
[2019-07-23] MEDS: cefTRIAXone 1,000 MG in SYRINGE 1 EACH IV SCH (17:55)
[2019-07-23] MEDS: ROSUVASTATIN 20 MG TABLET PO SCH (20:37)
[2019-07-23] MEDS: INSULIN GLARGINE 100 UNIT/ML SUBCUT SCH (20:37)
[2019-07-23] MEDS: SODIUM CHLORIDE 0.9% 1,000 ML IV SCH (20:59)
[2019-07-24] MEDS: INSULIN LISPRO 100 UNIT/ML SUBCUT SCH ×4 (00:45→18:10)
[2019-07-24] MEDS: methylPREDNISolone SOD SUC 40 MG/1 ML VIAL IV SCH ×3 (01:34→18:15)
[2019-07-24] MEDS: PANTOPRAZOLE 40 MG VIAL IV SCH (01:34)
[2019-07-24] MEDS: HEPARIN DRIP 25,000 UNITS/500 ML PREMIX IV SCH (01:34)
[2019-07-24 04:30] LABS: Basophils % 0.1 % (0.0-0.8); Hematocrit 26.3 VOL% (35.7-47.0); Hemoglobin 7.8 GM/DL (12.0-16.0); Immature Granulocytes % 0.9 %; Lymphocytes # 0.3 10*3/uL (1.4-4.0); Lymphocytes % 1.4 % (21.3-54.2); Mean Corpuscular HGB Conc 29.7 GM/DL (32-36); Mean Corpuscular Volume 95.6 FL (87-102); Monocytes % 7.1 % (1.7-12.7); Neutrophils % 90.5 % (38.7-73.9); Platelet Count 197 T/CUMM (130-400); Red Blood Count 2.75 MC/CUMM (3.8-5.5); White Blood Count 21.5 T/CUMM (4-12)
[2019-07-24 04:33] LABS: ABG Base Excess 0.6 MMOL/L (-2.5-2.5); ABG HCO3 24.9 MMOL/L (20-26); ABG Oxygen Saturation 97.5 % (95-100); ABG PCO2 40.7 MM HG (35-48); ABG PH 7.402 (7.35-7.45); ABG PO2 95.8 MM HG (80-95); ABG TCO2 23.6 MMOL/L (23-27); Allen Test Positive; Pt O2 Delivery Device Ventilator
[2019-07-24 04:53] LABS: Lymphocytes 1 % (20-55); Platelet Estimate Adequate; Segmented Neutrophils 95 % (50-85); Total Cells Counted 100
[2019-07-24 04:54] LABS: Calcium 7.8 MG/DL (8.5-10.1); Hypochromasia 1+; Macrocytosis Slight; Osmolality,Calculated 301.8 MOS/KG (273-304)
[2019-07-24] MEDS: FLUCONAZOLE 200 MG TABLET PO SCH (08:34)
[2019-07-24] MEDS: ASPIRIN CHEW 81 MG TABLET PO SCH (08:35)
[2019-07-24] MEDS: carvediloL 6.25 MG TABLET PO SCH ×2 (08:35→21:27)
[2019-07-24] MEDS: amLODIPine 10 MG TABLET PO SCH (08:35)
[2019-07-24] MEDS: CLOPIDOGREL 75 MG TABLET PO SCH (08:35)
[2019-07-24] MEDS: MULTIVITAMIN (BEROCCA) TABLET PO SCH (08:35)
[2019-07-24] MEDS: ZINC OXIDE PASTE 113 GM TUBE TOP SCH ×2 (12:07→21:27)
[2019-07-24] MEDS: SODIUM CHLORIDE 0.9% 1,000 ML IV SCH (18:59)
[2019-07-24] MEDS: ROSUVASTATIN 20 MG TABLET PO SCH (21:27)
[2019-07-24] MEDS: INSULIN GLARGINE 100 UNIT/ML SUBCUT SCH (21:28)
[2019-07-25] MEDS: INSULIN LISPRO 100 UNIT/ML SUBCUT SCH ×4 (00:34→17:12)
[2019-07-25] MEDS: PANTOPRAZOLE 40 MG VIAL IV SCH (00:34)
[2019-07-25] MEDS: methylPREDNISolone SOD SUC 40 MG/1 ML VIAL IV SCH ×3 (02:30→17:13)
[2019-07-25] MEDS: HEPARIN DRIP 25,000 UNITS/500 ML PREMIX IV SCH ×2 (02:56→20:05)
[2019-07-25 04:02] LABS: ABG HCO3 23.6 MMOL/L (20-26); ABG Oxygen Saturation 96.3 % (95-100); ABG PCO2 36.9 MM HG (35-48); ABG PO2 83.7 MM HG (80-95); ABG TCO2 21.9 MMOL/L (23-27)
[2019-07-25 05:28] LABS: Basophils % 0.1 % (0.0-0.8); Hematocrit 24.6 VOL% (35.7-47.0); Hemoglobin 7.4 GM/DL (12.0-16.0); Immature Granulocytes % 1.1 %; Immature Granulocytes Absolute 0.19 #; Lymphocytes # 0.3 10*3/uL (1.4-4.0); Lymphocytes % 1.8 % (21.3-54.2); Mean Corpuscular HGB Conc 30.1 GM/DL (32-36); Mean Corpuscular Volume 95.3 FL (87-102); Mean Platelet Volume 12.9 FL (9.6-12.0); Monocytes % 5.8 % (1.7-12.7); Neutrophils % 91.2 % (38.7-73.9); Platelet Count 217 T/CUMM (130-400); Red Blood Count 2.58 MC/CUMM (3.8-5.5); Red Cell Distribution Width 18.2 % (9.3-17.3); White Blood Count 17.2 T/CUMM (4-12)
[2019-07-25 05:43] LABS: Calcium 7.7 MG/DL (8.5-10.1)
[2019-07-25 06:13] LABS: Hypochromasia 1+; Lymphocytes 1 % (20-55); Segmented Neutrophils 94 % (50-85); Total Cells Counted 100
[2019-07-25 06:14] LABS: Anisocytosis 1+; Platelet Estimate Normal
[2019-07-25] MEDS: FLUCONAZOLE 200 MG TABLET PO SCH (08:03)
[2019-07-25] MEDS: amLODIPine 10 MG TABLET PO SCH (08:03)
[2019-07-25] MEDS: CLOPIDOGREL 75 MG TABLET PO SCH (08:03)
[2019-07-25] MEDS: carvediloL 6.25 MG TABLET PO SCH ×2 (08:03→20:01)
[2019-07-25] MEDS: MULTIVITAMIN (BEROCCA) TABLET PO SCH (08:03)
[2019-07-25] MEDS: ASPIRIN CHEW 81 MG TABLET PO SCH (08:15)
[2019-07-25] MEDS: ZINC OXIDE PASTE 113 GM TUBE TOP SCH ×2 (09:59→20:01)
[2019-07-25] MEDS ORDERED: KETOROLAC 30 MG/1 ML VIAL IV PRN (11:42)
[2019-07-25] MEDS: SODIUM CHLORIDE 0.9% 1,000 ML IV SCH (12:01)
[2019-07-25] MEDS: fentaNYL 50 MCG/HR PATCH TRANSDERM SCH (12:14)
[2019-07-25] MEDS ORDERED: AMIKACIN 500 MG in SODIUM CHLORIDE 0.9% 100 ML IV ONE (17:00)
[2019-07-25] MEDS: INSULIN GLARGINE 100 UNIT/ML SUBCUT SCH (20:01)
[2019-07-25] MEDS: ROSUVASTATIN 20 MG TABLET PO SCH (20:01)
[2019-07-26] MEDS: PANTOPRAZOLE 40 MG VIAL IV SCH (00:15)
[2019-07-26] MEDS: INSULIN LISPRO 100 UNIT/ML SUBCUT SCH ×4 (00:15→17:53)
[2019-07-26] MEDS: HEPARIN DRIP 25,000 UNITS/500 ML PREMIX IV SCH (01:12)
[2019-07-26] MEDS: methylPREDNISolone SOD SUC 40 MG/1 ML VIAL IV SCH ×4 (01:12→20:45)
[2019-07-26 04:11] LABS: ABG Base Excess 3.5 MMOL/L (-2.5-2.5); ABG HCO3 27.6 MMOL/L (20-26); ABG Oxygen Saturation 96.2 % (95-100); ABG PCO2 39.6 MM HG (35-48); ABG PH 7.453 (7.35-7.45); ABG PO2 74.4 MM HG (80-95); ABG TCO2 26.1 MMOL/L (23-27)
[2019-07-26 04:33] LABS: Basophils % 0.1 % (0.0-0.8); Hematocrit 23.6 VOL% (35.7-47.0); Immature Granulocytes % 0.7 %; Immature Granulocytes Absolute 0.12 #; Lymphocytes # 0.3 10*3/uL (1.4-4.0); Lymphocytes % 1.7 % (21.3-54.2); Mean Corpuscular HGB Conc 29.7 GM/DL (32-36); Mean Corpuscular Volume 93.3 FL (87-102); Mean Platelet Volume 13.5 FL (9.6-12.0); Neutrophils % 92.5 % (38.7-73.9); Platelet Count 210 T/CUMM (130-400); Red Blood Count 2.53 MC/CUMM (3.8-5.5); Red Cell Distribution Width 18.3 % (9.3-17.3); White Blood Count 16.3 T/CUMM (4-12)
[2019-07-26] MEDS ORDERED: NOREPINEPHRINE 8 MG in SODIUM CHLORIDE 0.9% 242 ML IV PRN (07:56)
[2019-07-26] MEDS: amLODIPine 10 MG TABLET PO SCH (08:32)
[2019-07-26] MEDS: CLOPIDOGREL 75 MG TABLET PO SCH (08:32)
[2019-07-26] MEDS: ZINC OXIDE PASTE 113 GM TUBE TOP SCH ×2 (08:32→20:23)
[2019-07-26] MEDS: carvediloL 6.25 MG TABLET PO SCH ×2 (08:32→20:23)
[2019-07-26] MEDS: ASPIRIN CHEW 81 MG TABLET PO SCH (08:32)
[2019-07-26] MEDS: MULTIVITAMIN (BEROCCA) TABLET PO SCH (08:32)
[2019-07-26 08:43] LABS: Band Neutrophils 11 % (0-10); Lymphocytes 2 % (20-55); Nucleated Red Blood Cells 1 (0-5); Segmented Neutrophils 85 % (50-85); Total Cells Counted 100
[2019-07-26 08:44] LABS: Anisocytosis 1+; Hypochromasia 1+
[2019-07-26] MEDS ORDERED: SODIUM CHLORIDE 0.9% 1,000 ML IV PRN (09:29)
[2019-07-26] MEDS: SODIUM CHLORIDE 0.9% 1,000 ML IV SCH (13:20)
[2019-07-26] MEDS: ROSUVASTATIN 20 MG TABLET PO SCH (20:23)
[2019-07-26] MEDS: INSULIN GLARGINE 100 UNIT/ML SUBCUT SCH (20:23)
[2019-07-27] MEDS ORDERED: DEXTROSE 50% 25 GM/50 ML VIAL IV PRN (00:13)
[2019-07-27] MEDS: INSULIN LISPRO 100 UNIT/ML SUBCUT SCH ×4 (00:28→18:04)
[2019-07-27] MEDS: PANTOPRAZOLE 40 MG VIAL IV SCH (00:28)
[2019-07-27] MEDS: HEPARIN DRIP 25,000 UNITS/500 ML PREMIX IV SCH ×2 (02:38→05:52)
[2019-07-27 03:43] LABS: ABG HCO3 25.2 MMOL/L (20-26); ABG Oxygen Saturation 88.3 % (95-100); ABG PCO2 45.7 MM HG (35-48); ABG PH 7.371 (7.35-7.45); ABG PO2 60.2 MM HG (80-95); ABG TCO2 24.9 MMOL/L (23-27); Allen Test Positive; Pt O2 Delivery Device Ventilator
[2019-07-27 04:59] LABS: Basophils % 0.1 % (0.0-0.8); Hematocrit 25.8 VOL% (35.7-47.0); Hemoglobin 7.5 GM/DL (12.0-16.0); Immature Granulocytes % 0.9 %; Immature Granulocytes Absolute 0.17 #; Lymphocytes # 0.2 10*3/uL (1.4-4.0); Lymphocytes % 1.3 % (21.3-54.2); Mean Corpuscular HGB Conc 29.1 GM/DL (32-36); Mean Corpuscular Volume 97.4 FL (87-102); Mean Platelet Volume 13.1 FL (9.6-12.0); Monocytes % 5.6 % (1.7-12.7); Neutrophils % 92.1 % (38.7-73.9); Platelet Count 247 T/CUMM (130-400); Red Blood Count 2.65 MC/CUMM (3.8-5.5); Red Cell Distribution Width 18.6 % (9.3-17.3); White Blood Count 18.2 T/CUMM (4-12)
[2019-07-27 05:20] LABS: Calcium 7.8 MG/DL (8.5-10.1)
[2019-07-27 05:56] LABS: Band Neutrophils 6 % (0-10); Hypochromasia 1+; Lymphocytes 1 % (20-55); Segmented Neutrophils 87 % (50-85); Total Cells Counted 100
[2019-07-27 05:57] LABS: Anisocytosis 1+
[2019-07-27] MEDS: CLOPIDOGREL 75 MG TABLET PO SCH (08:23)
[2019-07-27] MEDS: amLODIPine 10 MG TABLET PO SCH (08:23)
[2019-07-27] MEDS: MULTIVITAMIN (BEROCCA) TABLET PO SCH (08:23)
[2019-07-27] MEDS: ZINC OXIDE PASTE 113 GM TUBE TOP SCH ×2 (08:23→21:22)
[2019-07-27] MEDS: ASPIRIN CHEW 81 MG TABLET PO SCH (08:23)
[2019-07-27] MEDS: carvediloL 6.25 MG TABLET PO SCH ×2 (08:23→21:22)
[2019-07-27] MEDS: methylPREDNISolone SOD SUC 40 MG/1 ML VIAL IV SCH ×2 (09:15→21:23)
[2019-07-27] MEDS ORDERED: INSULIN GLARGINE 100 UNIT/ML SUBCUT SCH (21:00)
[2019-07-27] MEDS: ROSUVASTATIN 20 MG TABLET PO SCH (21:22)
[2019-07-28] MEDS: PANTOPRAZOLE 40 MG VIAL IV SCH (00:29)
[2019-07-28] MEDS: INSULIN LISPRO 100 UNIT/ML SUBCUT SCH ×4 (00:29→17:36)
[2019-07-28] MEDS: HEPARIN DRIP 25,000 UNITS/500 ML PREMIX IV SCH ×2 (02:22→17:41)
[2019-07-28 04:18] LABS: Basophils % 0.2 % (0.0-0.8); Eosinophils # 0.1 10*3/uL (0.0-0.87); Eosinophils % 0.2 % (0.00-10.9); Hemoglobin 6.7 GM/DL (12.0-16.0); Immature Granulocytes Absolute 0.46 #; Lymphocytes # 0.3 10*3/uL (1.4-4.0); Lymphocytes % 1.4 % (21.3-54.2); Mean Corpuscular HGB Conc 29.1 GM/DL (32-36); Mean Corpuscular Volume 97.9 FL (87-102); Mean Platelet Volume 13.8 FL (9.6-12.0); Monocytes % 4.1 % (1.7-12.7); NRBC # 0.04 10*3/uL; Neutrophils % 92.1 % (38.7-73.9); Platelet Count 215 T/CUMM (130-400); Red Blood Count 2.35 MC/CUMM (3.8-5.5); Red Cell Distribution Width 18.9 % (9.3-17.3); White Blood Count 23.5 T/CUMM (4-12)
[2019-07-28 04:36] LABS: Calcium 7.6 MG/DL (8.5-10.1); Osmolality,Calculated 306.2 MOS/KG (273-304)
[2019-07-28 04:38] LABS: Band Neutrophils 5 % (0-10); Hypochromasia 2+; Lymphocytes 1 % (20-55); Microcytosis Slight; Platelet Estimate Adequate; Segmented Neutrophils 90 % (50-85); Total Cells Counted 100
[2019-07-28 04:40] LABS: ABG Base Excess 0.1 MMOL/L (-2.5-2.5); ABG HCO3 26.5 MMOL/L (20-26); ABG Oxygen Saturation 85.5 % (95-100); ABG PCO2 53.9 MM HG (35-48); ABG PH 7.309 (7.35-7.45); ABG PO2 57.9 MM HG (80-95); ABG TCO2 28.1 MMOL/L (23-27); Allen Test Positive; Pt O2 Delivery Device Ventilator
[2019-07-28] MEDS: DEXTROSE 10% 250 ML BAG IV PRN (05:45)
[2019-07-28] MEDS: ZINC OXIDE PASTE 113 GM TUBE TOP SCH ×2 (08:06→20:51)
[2019-07-28] MEDS: carvediloL 6.25 MG TABLET PO SCH ×2 (08:06→20:50)
[2019-07-28] MEDS: CLOPIDOGREL 75 MG TABLET PO SCH (08:06)
[2019-07-28] MEDS: methylPREDNISolone SOD SUC 40 MG/1 ML VIAL IV SCH ×2 (08:06→20:48)
[2019-07-28] MEDS: ASPIRIN CHEW 81 MG TABLET PO SCH (08:06)
[2019-07-28] MEDS: amLODIPine 10 MG TABLET PO SCH (08:06)
[2019-07-28] MEDS: MULTIVITAMIN (BEROCCA) TABLET PO SCH (08:09)
[2019-07-28] MEDS: fentaNYL 50 MCG/HR PATCH TRANSDERM SCH (08:09)
[2019-07-28] MEDS ORDERED: SODIUM CHLORIDE 0.9% 1,000 ML IV PRN (11:14)
[2019-07-28] MEDS ORDERED: INSULIN GLARGINE 100 UNIT/ML SUBCUT SCH (11:24)
[2019-07-28] MEDS ORDERED: NOREPINEPHRINE 4 MG/4 ML VIAL IV ONE (13:03)
[2019-07-28] MEDS ORDERED: NOREPINEPHRINE 8 MG in SODIUM CHLORIDE 0.9% 242 ML IV PRN (13:07)
[2019-07-28] MEDS ORDERED: NOREPINEPHRINE 16 MG in SODIUM CHLORIDE 0.9% 242 ML IV PRN (13:21)
[2019-07-28] MEDS: MICAFUNGIN 100 MG in SODIUM CHLORIDE 0.9% 100 ML IV SCH (16:01)
[2019-07-28] MEDS ORDERED: AMIKACIN 500 MG in SODIUM CHLORIDE 0.9% 100 ML IV ONE (17:00)
[2019-07-28] MEDS: ROSUVASTATIN 20 MG TABLET PO SCH (20:51)
[2019-07-29] MEDS: PANTOPRAZOLE 40 MG VIAL IV SCH (00:01)
[2019-07-29] MEDS: INSULIN LISPRO 100 UNIT/ML SUBCUT SCH ×5 (00:04→23:53)
[2019-07-29] MEDS: HEPARIN DRIP 25,000 UNITS/500 ML PREMIX IV SCH (03:53)
[2019-07-29 04:38] LABS: Basophils # 0.1 10*3/uL (0.0-0.2); Basophils % 0.2 % (0.0-0.8); Eosinophils # 0.1 10*3/uL (0.0-0.87); Eosinophils % 0.3 % (0.00-10.9); Hematocrit 29.6 VOL% (35.7-47.0); Hemoglobin 9.3 GM/DL (12.0-16.0); Immature Granulocytes % 2.8 %; Immature Granulocytes Absolute 0.67 #; Lymphocytes # 0.3 10*3/uL (1.4-4.0); Lymphocytes % 1.1 % (21.3-54.2); Mean Corpuscular HGB Conc 31.4 GM/DL (32-36); Mean Platelet Volume 12.8 FL (9.6-12.0); Monocytes % 3.7 % (1.7-12.7); NRBC # 0.02 10*3/uL; Neutrophils % 91.9 % (38.7-73.9); Platelet Count 199 T/CUMM (130-400); Red Blood Count 3.29 MC/CUMM (3.8-5.5); Red Cell Distribution Width 18.1 % (9.3-17.3); White Blood Count 23.6 T/CUMM (4-12)
[2019-07-29 04:53] LABS: Calcium 7.4 MG/DL (8.5-10.1); Osmolality,Calculated 291.1 MOS/KG (273-304)
[2019-07-29 05:01] LABS: Hypochromasia 1+; Lymphocytes 4 % (20-55); Microcytosis 1+; Platelet Estimate Adequate; Segmented Neutrophils 90 % (50-85); Total Cells Counted 100
[2019-07-29 05:29] LABS: ABG Base Excess 3.2 MMOL/L (-2.5-2.5); ABG HCO3 27.2 MMOL/L (20-26); ABG Oxygen Saturation 94.1 % (95-100); ABG PCO2 36.5 MM HG (35-48); ABG PH 7.474 (7.35-7.45); ABG PO2 67.9 MM HG (80-95); ABG TCO2 24.6 MMOL/L (23-27)
[2019-07-29] MEDS: hydrALAZINE 25 MG TABLET PO SCH ×3 (08:48→20:42)
[2019-07-29] MEDS: MULTIVITAMIN (BEROCCA) TABLET PO SCH (08:48)
[2019-07-29] MEDS: amLODIPine 10 MG TABLET PO SCH (08:48)
[2019-07-29] MEDS: methylPREDNISolone SOD SUC 40 MG/1 ML VIAL IV SCH (08:49)
[2019-07-29] MEDS: ZINC OXIDE PASTE 113 GM TUBE TOP SCH ×2 (08:49→20:43)
[2019-07-29] MEDS: carvediloL 6.25 MG TABLET PO SCH ×2 (08:49→20:42)
[2019-07-29] MEDS: cefTRIAXone 1,000 MG in SYRINGE 1 EACH IV SCH (12:45)
[2019-07-29] MEDS ORDERED: DEXAMETHASONE 4 MG/1 ML VIAL IV SCH (15:30)
[2019-07-29] MEDS: DEXAMETHASONE 4 MG/1 ML VIAL IV SCH (15:33)
[2019-07-29] MEDS: MICAFUNGIN 100 MG in SODIUM CHLORIDE 0.9% 100 ML IV SCH (15:34)
[2019-07-29] MEDS: ROSUVASTATIN 20 MG TABLET PO SCH (20:42)
[2019-07-29] MEDS ORDERED: INSULIN GLARGINE 100 UNIT/ML SUBCUT SCH (21:00)
[2019-07-30] MEDS: PANTOPRAZOLE 40 MG VIAL IV SCH (00:15)
[2019-07-30] MEDS: hydrALAZINE 25 MG TABLET PO SCH ×4 (00:53→20:33)
[2019-07-30] MEDS: HEPARIN DRIP 25,000 UNITS/500 ML PREMIX IV SCH ×2 (03:08→08:37)
[2019-07-30 03:19] LABS: Allen Test Positive; Pt O2 Delivery Device Ventilator
[2019-07-30 03:20] LABS: ABG HCO3 24.6 MMOL/L (20-26); ABG Oxygen Saturation 91.6 % (95-100); ABG PH 7.464 (7.35-7.45); ABG PO2 62.2 MM HG (80-95); ABG TCO2 25.6 MMOL/L (23-27)
[2019-07-30 05:28] LABS: Basophils # 0.1 10*3/uL (0.0-0.2); Basophils % 0.2 % (0.0-0.8); Eosinophils # 0.1 10*3/uL (0.0-0.87); Eosinophils % 0.2 % (0.00-10.9); Hematocrit 28.9 VOL% (35.7-47.0); Hemoglobin 9.1 GM/DL (12.0-16.0); Immature Granulocytes % 2.4 %; Immature Granulocytes Absolute 0.54 #; Lymphocytes # 0.3 10*3/uL (1.4-4.0); Lymphocytes % 1.3 % (21.3-54.2); Mean Corpuscular HGB Conc 31.5 GM/DL (32-36); Mean Corpuscular Volume 90.9 FL (87-102); Mean Platelet Volume 12.7 FL (9.6-12.0); Monocytes % 3.6 % (1.7-12.7); NRBC # 0.02 10*3/uL; Neutrophils % 92.3 % (38.7-73.9); Platelet Count 196 T/CUMM (130-400); Red Blood Count 3.18 MC/CUMM (3.8-5.5); Red Cell Distribution Width 18.3 % (9.3-17.3); White Blood Count 22.3 T/CUMM (4-12)
[2019-07-30 05:42] LABS: Calcium 7.5 MG/DL (8.5-10.1); Osmolality,Calculated 297.4 MOS/KG (273-304)
[2019-07-30] MEDS: INSULIN LISPRO 100 UNIT/ML SUBCUT SCH ×4 (06:05→23:39)
[2019-07-30 06:26] LABS: Band Neutrophils 1 % (0-10); Hypochromasia 1+; Lymphocytes 1 % (20-55); Microcytosis Slight; Platelet Estimate Adequate; Segmented Neutrophils 94 % (50-85); Total Cells Counted 100
[2019-07-30] MEDS: carvediloL 6.25 MG TABLET PO SCH ×2 (08:31→20:33)
[2019-07-30] MEDS: amLODIPine 10 MG TABLET PO SCH (08:31)
[2019-07-30] MEDS: MULTIVITAMIN (BEROCCA) TABLET PO SCH (08:31)
[2019-07-30] MEDS: ZINC OXIDE PASTE 113 GM TUBE TOP SCH ×2 (08:31→20:33)
[2019-07-30] MEDS: cefTRIAXone 1,000 MG in SYRINGE 1 EACH IV SCH (14:40)
[2019-07-30] MEDS: DEXAMETHASONE 4 MG/1 ML VIAL IV SCH (14:53)
[2019-07-30] MEDS: MICAFUNGIN 100 MG in SODIUM CHLORIDE 0.9% 100 ML IV SCH (18:15)
[2019-07-30] MEDS: ROSUVASTATIN 20 MG TABLET PO SCH (20:33)
[2019-07-31] MEDS: PANTOPRAZOLE 40 MG VIAL IV SCH (00:07)
[2019-07-31] MEDS: hydrALAZINE 25 MG TABLET PO SCH ×4 (01:39→20:34)
[2019-07-31] MEDS: HEPARIN DRIP 25,000 UNITS/500 ML PREMIX IV SCH (02:56)
[2019-07-31 04:04] LABS: ABG Base Excess 1.6 MMOL/L (-2.5-2.5); ABG HCO3 25.8 MMOL/L (20-26); ABG Oxygen Saturation 95.4 % (95-100); ABG PH 7.439 (7.35-7.45); ABG PO2 77.5 MM HG (80-95); ABG TCO2 23.7 MMOL/L (23-27)
[2019-07-31 05:15] LABS: Basophils # 0.1 10*3/uL (0.0-0.2); Basophils % 0.2 % (0.0-0.8); Eosinophils # 0.1 10*3/uL (0.0-0.87); Eosinophils % 0.2 % (0.00-10.9); Hematocrit 28.4 VOL% (35.7-47.0); Hemoglobin 8.7 GM/DL (12.0-16.0); Immature Granulocytes % 3.8 %; Immature Granulocytes Absolute 0.93 #; Lymphocytes # 0.4 10*3/uL (1.4-4.0); Lymphocytes % 1.8 % (21.3-54.2); Mean Corpuscular HGB Conc 30.6 GM/DL (32-36); Mean Corpuscular Volume 91.9 FL (87-102); Mean Platelet Volume 12.5 FL (9.6-12.0); Monocytes % 4.2 % (1.7-12.7); NRBC # 0.05 10*3/uL; Neutrophils % 89.8 % (38.7-73.9); Platelet Count 217 T/CUMM (130-400); Red Blood Count 3.09 MC/CUMM (3.8-5.5); Red Cell Distribution Width 18.2 % (9.3-17.3); White Blood Count 24.6 T/CUMM (4-12)
[2019-07-31 05:27] LABS: Calcium 7.4 MG/DL (8.5-10.1)
[2019-07-31] MEDS: INSULIN LISPRO 100 UNIT/ML SUBCUT SCH ×3 (05:29→17:57)
[2019-07-31 05:44] LABS: Band Neutrophils 2 % (0-10); Hypochromasia 1+; Lymphocytes 3 % (20-55); Microcytosis Slight; Nucleated Red Blood Cells 2 (0-5); Platelet Estimate Adequate; Segmented Neutrophils 91 % (50-85); Total Cells Counted 100
[2019-07-31] MEDS: fentaNYL 50 MCG/HR PATCH TRANSDERM SCH (08:07)
[2019-07-31] MEDS: ZINC OXIDE PASTE 113 GM TUBE TOP SCH ×2 (08:08→20:34)
[2019-07-31] MEDS: MULTIVITAMIN (BEROCCA) TABLET PO SCH (08:08)
[2019-07-31] MEDS: carvediloL 6.25 MG TABLET PO SCH ×2 (08:08→20:34)
[2019-07-31] MEDS: amLODIPine 10 MG TABLET PO SCH (08:08)
[2019-07-31] MEDS ORDERED: propofoL 200 MG/20 ML VIAL IV ONE (11:02)
[2019-07-31] MEDS ORDERED: LIDOCAINE 2% 5 ML VIAL ONE (11:02)
[2019-07-31] MEDS ORDERED: SEVOFLURANE 1 UNIT/15 MINUTE INH ONE (11:02)
[2019-07-31] MEDS ORDERED: MIDAZOLAM 2 MG/2 ML VIAL ONE (11:03)
[2019-07-31] MEDS ORDERED: ROCURONIUM 100 MG/10 ML VIAL IV ONE (11:03)
[2019-07-31] MEDS ORDERED: ePHEDrine 50 MG/ML VIAL ONE (11:03)
[2019-07-31] MEDS ORDERED: fentaNYL 100 MCG/2 ML VIAL ONE (11:03)
[2019-07-31] MEDS ORDERED: PHENYLEPHRINE 1 MG/10 ML SYRINGE IV ONE (11:03)
[2019-07-31] MEDS: cefTRIAXone 1,000 MG in SYRINGE 1 EACH IV SCH (11:59)
[2019-07-31 13:05] LABS: Alanine Aminotransferase 330 U/L (13-56); Albumin 1.1 G/DL (3.4-5.0); Alkaline Phosphatase 567 U/L (45-117); Aspartate Amino Transferase 513 U/L (0-37); Bilirubin,Direct < 0.100 MG/DL (0.0-0.20); Bilirubin,Indirect 0.3 MG/DL (0.0-1.0); Bilirubin,Total < 0.39 MG/DL (0.2-1.0); Total Protein 5.4 G/DL (6.4-8.3)
[2019-07-31] MEDS ORDERED: VANCOMYCIN INJ 500 MG in SODIUM CHLORIDE 0.9% 100 ML IV PRN (13:36)
[2019-07-31] MEDS ORDERED: VANCOMYCIN INJ 1,500 MG in SODIUM CHLORIDE 0.9% 500 ML IV ONE (14:00)
[2019-07-31 14:38] LABS: HIV Antigen/Antibody Result Nonreactive (Nonreactive); Hepatitis B Surface Ag Quant < 0.10 Index; Hepatitis B Surface Ag Result Negative (Negative); Hepatitis C Virus Ab Quant 0.12 Index; Hepatitis C Virus Ab Result Negative (Negative)
[2019-07-31] MEDS: DEXAMETHASONE 4 MG/1 ML VIAL IV SCH (16:24)
[2019-07-31] MEDS: MICAFUNGIN 100 MG in SODIUM CHLORIDE 0.9% 100 ML IV SCH (16:25)
[2019-07-31] MEDS: FLUCONAZOLE INJ 400 MG in PREMIX 1 EACH IV SCH (18:37)
[2019-07-31] MEDS: ROSUVASTATIN 20 MG TABLET PO SCH (20:34)
[2019-08-01] MEDS: hydrALAZINE 25 MG TABLET PO SCH ×4 (00:50→20:46)
[2019-08-01] MEDS: INSULIN LISPRO 100 UNIT/ML SUBCUT SCH ×4 (00:50→17:34)
[2019-08-01] MEDS: PANTOPRAZOLE 40 MG VIAL IV SCH (00:50)
[2019-08-01 04:45] LABS: ABG Base Excess -0.5 MMOL/L (-2.5-2.5); ABG Oxygen Saturation 95.8 % (95-100); ABG PCO2 34.5 MM HG (35-48); ABG PH 7.435 (7.35-7.45); ABG PO2 81.7 MM HG (80-95); ABG TCO2 20.6 MMOL/L (23-27); Allen Test Positive; Pt O2 Delivery Device Ventilator
[2019-08-01 05:27] LABS: Basophils # 0.1 10*3/uL (0.0-0.2); Basophils % 0.2 % (0.0-0.8); Eosinophils # 0.1 10*3/uL (0.0-0.87); Eosinophils % 0.2 % (0.00-10.9); Hematocrit 28.7 VOL% (35.7-47.0); Hemoglobin 8.7 GM/DL (12.0-16.0); Immature Granulocytes % 2.3 %; Immature Granulocytes Absolute 0.77 #; Lymphocytes # 0.3 10*3/uL (1.4-4.0); Lymphocytes % 0.8 % (21.3-54.2); Mean Corpuscular HGB Conc 30.3 GM/DL (32-36); Mean Corpuscular Volume 94.1 FL (87-102); Mean Platelet Volume 12.5 FL (9.6-12.0); Monocytes % 2.1 % (1.7-12.7); NRBC # 0.06 10*3/uL; Neutrophils % 94.4 % (38.7-73.9); Platelet Count 219 T/CUMM (130-400); Red Blood Count 3.05 MC/CUMM (3.8-5.5); Red Cell Distribution Width 18.2 % (9.3-17.3); White Blood Count 33.2 T/CUMM (4-12)
[2019-08-01 05:53] LABS: Calcium 7.4 MG/DL (8.5-10.1); Osmolality,Calculated 295.1 MOS/KG (273-304)
[2019-08-01] MEDS: MULTIVITAMIN (BEROCCA) TABLET PO SCH (08:05)
[2019-08-01] MEDS: amLODIPine 10 MG TABLET PO SCH (08:05)
[2019-08-01] MEDS: carvediloL 6.25 MG TABLET PO SCH ×2 (08:06→20:46)
[2019-08-01] MEDS: ZINC OXIDE PASTE 113 GM TUBE TOP SCH ×2 (08:06→20:46)
[2019-08-01] MEDS ORDERED: AMIKACIN 300 MG in SODIUM CHLORIDE 0.9% 100 ML IV PRN ×2 (09:00→12:12)
[2019-08-01] MEDS: HEPARIN DRIP 25,000 UNITS/500 ML PREMIX IV SCH (10:39)
[2019-08-01 11:57] LABS: Hypochromasia 1+; Segmented Neutrophils 99 % (50-85); Total Cells Counted 100
[2019-08-01 11:58] LABS: Polychromasia Slight
[2019-08-01 11:59] LABS: Platelet Estimate Normal
[2019-08-01] MEDS: DEXAMETHASONE 4 MG/1 ML VIAL IV SCH (14:37)
[2019-08-01] MEDS ORDERED: AMIKACIN 300 MG in SODIUM CHLORIDE 0.9% 100 ML IV ONE (17:00)
[2019-08-01] MEDS ORDERED: VANCOMYCIN INJ 500 MG in SODIUM CHLORIDE 0.9% 100 ML IV ONE (18:00)
[2019-08-01] MEDS: FLUCONAZOLE INJ 400 MG in PREMIX 1 EACH IV SCH (18:32)
[2019-08-01] MEDS: ROSUVASTATIN 20 MG TABLET PO SCH (20:46)
[2019-08-02] MEDS: PANTOPRAZOLE 40 MG VIAL IV SCH (00:33)
[2019-08-02] MEDS: hydrALAZINE 25 MG TABLET PO SCH ×4 (00:33→20:55)
[2019-08-02] MEDS: INSULIN LISPRO 100 UNIT/ML SUBCUT SCH ×4 (00:33→17:05)
[2019-08-02 05:04] LABS: ABG Base Excess -1.1 MMOL/L (-2.5-2.5); ABG HCO3 23.1 MMOL/L (20-26); ABG Oxygen Saturation 90.8 % (95-100); ABG PCO2 36.5 MM HG (35-48); ABG PH 7.419 (7.35-7.45); ABG PO2 61.7 MM HG (80-95); ABG TCO2 24.2 MMOL/L (23-27); Allen Test Positive; Pt O2 Delivery Device Ventilator
[2019-08-02 06:03] LABS: Basophils # 0.1 10*3/uL (0.0-0.2); Basophils % 0.1 % (0.0-0.8); Hematocrit 26.7 VOL% (35.7-47.0); Hemoglobin 8.1 GM/DL (12.0-16.0); Immature Granulocytes % 2.2 %; Immature Granulocytes Absolute 0.73 #; Lymphocytes # 0.3 10*3/uL (1.4-4.0); Lymphocytes % 0.9 % (21.3-54.2); Mean Corpuscular HGB Conc 30.3 GM/DL (32-36); Mean Platelet Volume 12.2 FL (9.6-12.0); Monocytes % 2.3 % (1.7-12.7); NRBC # 0.07 10*3/uL; Neutrophils % 94.5 % (38.7-73.9); Platelet Count 192 T/CUMM (130-400); Red Blood Count 2.81 MC/CUMM (3.8-5.5); Red Cell Distribution Width 17.9 % (9.3-17.3); White Blood Count 33.7 T/CUMM (4-12)
[2019-08-02 06:10] LABS: Calcium 7.3 MG/DL (8.5-10.1); Osmolality,Calculated 290.4 MOS/KG (273-304)
[2019-08-02] MEDS: ZINC OXIDE PASTE 113 GM TUBE TOP SCH ×2 (08:01→20:57)
[2019-08-02] MEDS: carvediloL 6.25 MG TABLET PO SCH ×2 (08:01→20:57)
[2019-08-02] MEDS: MULTIVITAMIN (BEROCCA) TABLET PO SCH (08:01)
[2019-08-02] MEDS: amLODIPine 10 MG TABLET PO SCH (08:01)
[2019-08-02 10:38] LABS: Band Neutrophils 1 % (0-10); Hypochromasia 2+; Lymphocytes 2 % (20-55); Metamyelocytes 1 %; Nucleated Red Blood Cells 1 (0-5); Platelet Estimate Increased; Polychromasia Slight; Segmented Neutrophils 95 % (50-85); Total Cells Counted 100
[2019-08-02] MEDS: HEPARIN DRIP 25,000 UNITS/500 ML PREMIX IV SCH (10:59)
[2019-08-02] MEDS: DEXAMETHASONE 4 MG/1 ML VIAL IV SCH (15:47)
[2019-08-02] MEDS: FLUCONAZOLE INJ 200 MG in PREMIX 1 EACH IV SCH (20:57)
[2019-08-02] MEDS: INSULIN GLARGINE 100 UNIT/ML SUBCUT SCH (20:57)
[2019-08-02] MEDS: ROSUVASTATIN 20 MG TABLET PO SCH (20:57)
[2019-08-02] MEDS ORDERED: INSULIN GLARGINE 100 UNIT/ML SUBCUT SCH (21:00)
[2019-08-03] MEDS: INSULIN LISPRO 100 UNIT/ML SUBCUT SCH ×4 (00:49→17:41)
[2019-08-03] MEDS: PANTOPRAZOLE 40 MG VIAL IV SCH (00:50)
[2019-08-03] MEDS: hydrALAZINE 25 MG TABLET PO SCH ×4 (00:50→21:05)
[2019-08-03 05:19] LABS: ABG Base Excess -2.2 MMOL/L (-2.5-2.5); ABG HCO3 22.4 MMOL/L (20-26); ABG Oxygen Saturation 95.2 % (95-100); ABG PCO2 37.4 MM HG (35-48); ABG PH 7.395 (7.35-7.45); ABG PO2 79.7 MM HG (80-95); ABG TCO2 23.5 MMOL/L (23-27); Allen Test Positive; Pt O2 Delivery Device Ventilator
[2019-08-03 05:35] LABS: Basophils % 0.1 % (0.0-0.8); Hematocrit 25.8 VOL% (35.7-47.0); Hemoglobin 7.6 GM/DL (12.0-16.0); Immature Granulocytes % 1.4 %; Immature Granulocytes Absolute 0.47 #; Lymphocytes # 0.4 10*3/uL (1.4-4.0); Lymphocytes % 1.2 % (21.3-54.2); Mean Corpuscular HGB Conc 29.5 GM/DL (32-36); Mean Corpuscular Volume 95.2 FL (87-102); Monocytes % 1.4 % (1.7-12.7); NRBC # 0.04 10*3/uL; Neutrophils % 95.9 % (38.7-73.9); Platelet Count 183 T/CUMM (130-400); Red Blood Count 2.71 MC/CUMM (3.8-5.5); Red Cell Distribution Width 17.7 % (9.3-17.3); White Blood Count 34.2 T/CUMM (4-12)
[2019-08-03 06:01] LABS: Band Neutrophils 2 % (0-10); Calcium 7.1 MG/DL (8.5-10.1); Hypochromasia 1+; Lymphocytes 1 % (20-55); Osmolality,Calculated 298.2 MOS/KG (273-304); Segmented Neutrophils 95 % (50-85); Total Cells Counted 100
[2019-08-03 06:02] LABS: Microcytosis 1+; Platelet Estimate Adequate
[2019-08-03] MEDS: ZINC OXIDE PASTE 113 GM TUBE TOP SCH ×2 (08:20→21:05)
[2019-08-03] MEDS: fentaNYL 50 MCG/HR PATCH TRANSDERM SCH (08:20)
[2019-08-03] MEDS: carvediloL 6.25 MG TABLET PO SCH ×2 (08:20→21:05)
[2019-08-03] MEDS: amLODIPine 10 MG TABLET PO SCH (08:20)
[2019-08-03] MEDS: MULTIVITAMIN (BEROCCA) TABLET PO SCH (08:20)
[2019-08-03] MEDS: HEPARIN DRIP 25,000 UNITS/500 ML PREMIX IV SCH (13:33)
[2019-08-03] MEDS: DEXAMETHASONE 4 MG/1 ML VIAL IV SCH (17:01)
[2019-08-03] MEDS: INSULIN GLARGINE 100 UNIT/ML SUBCUT SCH (21:05)
[2019-08-03] MEDS: ROSUVASTATIN 20 MG TABLET PO SCH (21:05)
[2019-08-03] MEDS: FLUCONAZOLE INJ 200 MG in PREMIX 1 EACH IV SCH (21:05)
[2019-08-04] MEDS: PANTOPRAZOLE 40 MG VIAL IV SCH (00:33)
[2019-08-04] MEDS: INSULIN LISPRO 100 UNIT/ML SUBCUT SCH ×4 (00:33→18:20)
[2019-08-04] MEDS: hydrALAZINE 25 MG TABLET PO SCH ×4 (00:33→20:31)
[2019-08-04] MEDS: ACETAMINOPHEN 325 MG TABLET PO PRN (00:37)
[2019-08-04 03:58] LABS: ABG Base Excess 2.1 MMOL/L (-2.5-2.5); ABG HCO3 26.3 MMOL/L (20-26); ABG Oxygen Saturation 95.3 % (95-100); ABG PCO2 38.3 MM HG (35-48); ABG PH 7.444 (7.35-7.45); ABG TCO2 24.4 MMOL/L (23-27); Allen Test Positive; Pt O2 Delivery Device Ventilator
[2019-08-04 05:27] LABS: Basophils # 0.1 10*3/uL (0.0-0.2); Basophils % 0.2 % (0.0-0.8); Hematocrit 25.6 VOL% (35.7-47.0); Hemoglobin 7.8 GM/DL (12.0-16.0); Immature Granulocytes % 2.2 %; Immature Granulocytes Absolute 0.98 #; Lymphocytes # 0.3 10*3/uL (1.4-4.0); Lymphocytes % 0.8 % (21.3-54.2); Mean Corpuscular HGB Conc 30.5 GM/DL (32-36); Mean Corpuscular Volume 95.2 FL (87-102); Mean Platelet Volume 12.3 FL (9.6-12.0); Monocytes % 1.4 % (1.7-12.7); NRBC # 0.04 10*3/uL; Neutrophils % 95.4 % (38.7-73.9); Platelet Count 190 T/CUMM (130-400); Red Blood Count 2.69 MC/CUMM (3.8-5.5); Red Cell Distribution Width 17.7 % (9.3-17.3)
[2019-08-04 05:33] LABS: White Blood Count 43.9 T/CUMM (4-12)
[2019-08-04 05:48] LABS: Calcium 7.1 MG/DL (8.5-10.1); Osmolality,Calculated 281.5 MOS/KG (273-304)
[2019-08-04 06:03] LABS: Segmented Neutrophils 100 % (50-85); Total Cells Counted 100
[2019-08-04 06:04] LABS: Anisocytosis 1+; Hypochromasia 1+; Platelet Estimate Normal
[2019-08-04] MEDS ORDERED: HEPARIN 5,000 UNIT/1 ML VIAL IV ONE (06:47)
[2019-08-04] MEDS ORDERED: LIDOCAINE 1% 20 ML VIAL MISC INJ ONE (07:19)
[2019-08-04] MEDS: MULTIVITAMIN (BEROCCA) TABLET PO SCH (08:39)
[2019-08-04] MEDS: amLODIPine 10 MG TABLET PO SCH (08:39)
[2019-08-04] MEDS: carvediloL 6.25 MG TABLET PO SCH ×2 (08:39→20:31)
[2019-08-04] MEDS: ZINC OXIDE PASTE 113 GM TUBE TOP SCH ×2 (08:39→20:32)
[2019-08-04] MEDS: DEXAMETHASONE 4 MG/1 ML VIAL IV SCH (16:49)
[2019-08-04] MEDS ORDERED: AMIKACIN 300 MG in SODIUM CHLORIDE 0.9% 100 ML IV ONE (17:00)
[2019-08-04] MEDS: HEPARIN DRIP 25,000 UNITS/500 ML PREMIX IV SCH (17:50)
[2019-08-04] MEDS: ROSUVASTATIN 20 MG TABLET PO SCH (20:31)
[2019-08-04] MEDS: INSULIN GLARGINE 100 UNIT/ML SUBCUT SCH (20:32)
[2019-08-04] MEDS: FLUCONAZOLE INJ 200 MG in PREMIX 1 EACH IV SCH (20:34)
[2019-08-05] MEDS: INSULIN LISPRO 100 UNIT/ML SUBCUT SCH ×4 (00:53→18:06)
[2019-08-05] MEDS: hydrALAZINE 25 MG TABLET PO SCH ×4 (00:53→21:08)
[2019-08-05] MEDS: PANTOPRAZOLE 40 MG VIAL IV SCH (00:53)
[2019-08-05 03:51] LABS: ABG Base Excess -0.2 MMOL/L (-2.5-2.5); ABG HCO3 24.2 MMOL/L (20-26); ABG Oxygen Saturation 95.3 % (95-100); ABG PH 7.421 (7.35-7.45); ABG PO2 78.1 MM HG (80-95); ABG TCO2 25.3 MMOL/L (23-27); Allen Test Positive; Pt O2 Delivery Device Ventilator
[2019-08-05] MEDS: MULTIVITAMIN (BEROCCA) TABLET PO SCH (08:31)
[2019-08-05] MEDS: amLODIPine 10 MG TABLET PO SCH (08:31)
[2019-08-05] MEDS: ZINC OXIDE PASTE 113 GM TUBE TOP SCH ×2 (08:31→21:08)
[2019-08-05] MEDS: carvediloL 6.25 MG TABLET PO SCH ×2 (08:31→21:08)
[2019-08-05] MEDS: fentaNYL 25 MCG/HR PATCH TRANSDERM SCH (08:36)
[2019-08-05 08:46] LABS: Basophils # 0.1 10*3/uL (0.0-0.2); Basophils % 0.2 % (0.0-0.8); Hemoglobin 6.9 GM/DL (12.0-16.0); Immature Granulocytes % 1.1 %; Immature Granulocytes Absolute 0.47 #; Lymphocytes # 0.3 10*3/uL (1.4-4.0); Lymphocytes % 0.7 % (21.3-54.2); Mean Corpuscular Volume 95.8 FL (87-102); Mean Platelet Volume 12.4 FL (9.6-12.0); Monocytes % 1.4 % (1.7-12.7); NRBC # 0.05 10*3/uL; Neutrophils % 96.6 % (38.7-73.9); Platelet Count 166 T/CUMM (130-400); Red Cell Distribution Width 17.9 % (9.3-17.3)
[2019-08-05 08:48] LABS: White Blood Count 41.2 T/CUMM (4-12)
[2019-08-05 08:49] LABS: Calcium 7.2 MG/DL (8.5-10.1); Osmolality,Calculated 293.1 MOS/KG (273-304)
[2019-08-05 09:06] LABS: Hypochromasia 2+; Lymphocytes 1 % (20-55); Microcytosis Slight; Platelet Estimate Adequate; Segmented Neutrophils 98 % (50-85); Total Cells Counted 100
[2019-08-05] MEDS: DEXAMETHASONE 4 MG/1 ML VIAL IV SCH (15:10)
[2019-08-05] MEDS: HEPARIN DRIP 25,000 UNITS/500 ML PREMIX IV SCH (18:38)
[2019-08-05] MEDS: FLUCONAZOLE INJ 200 MG in PREMIX 1 EACH IV SCH (21:08)
[2019-08-05] MEDS: ROSUVASTATIN 20 MG TABLET PO SCH (21:08)
[2019-08-05] MEDS: INSULIN GLARGINE 100 UNIT/ML SUBCUT SCH (21:09)
[2019-08-06] MEDS: INSULIN LISPRO 100 UNIT/ML SUBCUT SCH ×4 (00:22→17:56)
[2019-08-06] MEDS: hydrALAZINE 25 MG TABLET PO SCH ×4 (02:05→21:06)
[2019-08-06] MEDS: PANTOPRAZOLE 40 MG VIAL IV SCH (02:05)
[2019-08-06 05:20] LABS: Basophils # 0.1 10*3/uL (0.0-0.2); Basophils % 0.1 % (0.0-0.8); Hematocrit 20.5 VOL% (35.7-47.0); Immature Granulocytes % 1.1 %; Lymphocytes # 0.4 10*3/uL (1.4-4.0); Mean Corpuscular HGB Conc 30.2 GM/DL (32-36); Mean Corpuscular Volume 95.3 FL (87-102); Mean Platelet Volume 12.1 FL (9.6-12.0); Monocytes % 1.3 % (1.7-12.7); NRBC # 0.04 10*3/uL; Neutrophils % 96.5 % (38.7-73.9); Platelet Count 153 T/CUMM (130-400); Red Blood Count 2.15 MC/CUMM (3.8-5.5); Red Cell Distribution Width 17.8 % (9.3-17.3); White Blood Count 36.2 T/CUMM (4-12)
[2019-08-06 05:22] LABS: Hemoglobin 6.2 GM/DL (12.0-16.0)
[2019-08-06 05:40] LABS: Anisocytosis 1+; Band Neutrophils 4 % (0-10); Hypochromasia 1+; Lymphocytes 1 % (20-55); Microcytosis 1+; Platelet Estimate Adequate; Segmented Neutrophils 94 % (50-85); Total Cells Counted 100
[2019-08-06 05:52] LABS: Calcium 7.2 MG/DL (8.5-10.1); Osmolality,Calculated 292.2 MOS/KG (273-304)
[2019-08-06 07:54] LABS: SARS-CoV-2 Total Ab Interp Reactive
[2019-08-06] MEDS: amLODIPine 10 MG TABLET PO SCH (08:51)
[2019-08-06] MEDS: MULTIVITAMIN (BEROCCA) TABLET PO SCH (08:51)
[2019-08-06] MEDS: carvediloL 6.25 MG TABLET PO SCH ×2 (08:51→21:06)
[2019-08-06] MEDS: ZINC OXIDE PASTE 113 GM TUBE TOP SCH ×2 (08:53→21:06)
[2019-08-06 10:21] LABS: VBG Base Excess -1.5 MEQ/L (0-4); VBG HCO3 22.6 MEQ/L (24-28); VBG Oxygen Saturation 57.2 %; VBG PCO2 43.9 MMHG (41-51); VBG PH 7.348; VBG PO2 34.2 MMHG (17-40)
[2019-08-06] MEDS ORDERED: COLISTIMETHATE 150 MG in SODIUM CHLORIDE 0.9% 100 ML IV SCH (15:00)
[2019-08-06] MEDS: DEXAMETHASONE 4 MG/1 ML VIAL IV SCH (16:17)
[2019-08-06] MEDS ORDERED: COLISTIMETHATE 300 MG in SODIUM CHLORIDE 0.9% 100 ML IV ONE (17:00)
[2019-08-06] MEDS: HEPARIN DRIP 25,000 UNITS/500 ML PREMIX IV SCH (18:04)
[2019-08-06] MEDS: INSULIN GLARGINE 100 UNIT/ML SUBCUT SCH (21:06)
[2019-08-06] MEDS: FLUCONAZOLE INJ 200 MG in PREMIX 1 EACH IV SCH (21:06)
[2019-08-06] MEDS: ROSUVASTATIN 20 MG TABLET PO SCH (21:06)
[2019-08-07] MEDS: INSULIN LISPRO 100 UNIT/ML SUBCUT SCH ×4 (00:22→17:55)
[2019-08-07] MEDS: PANTOPRAZOLE 40 MG VIAL IV SCH (01:25)
[2019-08-07 04:45] LABS: Allen Test Positive; Pt O2 Delivery Device Ventilator
[2019-08-07 04:46] LABS: ABG Base Excess -2.8 MMOL/L (-2.5-2.5); ABG HCO3 21.5 MMOL/L (20-26); ABG Oxygen Saturation 93.7 % (95-100); ABG PCO2 35.5 MM HG (35-48); ABG PH 7.401 (7.35-7.45); ABG PO2 73.8 MM HG (80-95); ABG TCO2 22.6 MMOL/L (23-27)
[2019-08-07] MEDS: hydrALAZINE 25 MG TABLET PO SCH ×4 (05:14→20:31)
[2019-08-07 05:20] LABS: Basophils % 0.1 % (0.0-0.8); Hematocrit 24.2 VOL% (35.7-47.0); Hemoglobin 7.3 GM/DL (12.0-16.0); Immature Granulocytes % 1.3 %; Immature Granulocytes Absolute 0.36 #; Lymphocytes # 0.2 10*3/uL (1.4-4.0); Lymphocytes % 0.7 % (21.3-54.2); Mean Corpuscular HGB Conc 30.2 GM/DL (32-36); Mean Corpuscular Volume 96.4 FL (87-102); Mean Platelet Volume 11.8 FL (9.6-12.0); Monocytes % 1.5 % (1.7-12.7); NRBC # 0.05 10*3/uL; Neutrophils % 96.4 % (38.7-73.9); Platelet Count 152 T/CUMM (130-400); Red Blood Count 2.51 MC/CUMM (3.8-5.5); Red Cell Distribution Width 17.4 % (9.3-17.3); White Blood Count 28.6 T/CUMM (4-12)
[2019-08-07 05:38] LABS: Calcium 6.9 MG/DL (8.5-10.1); Osmolality,Calculated 289.8 MOS/KG (273-304)
[2019-08-07 05:53] LABS: Hypochromasia 1+; Microcytosis 1+; Platelet Estimate Adequate; Segmented Neutrophils 99 % (50-85); Total Cells Counted 100
[2019-08-07] MEDS ORDERED: HEPARIN 5,000 UNIT/1 ML VIAL IV ONE (05:54)
[2019-08-07] MEDS: ZINC OXIDE PASTE 113 GM TUBE TOP SCH ×2 (08:24→20:31)
[2019-08-07] MEDS: amLODIPine 10 MG TABLET PO SCH (08:24)
[2019-08-07] MEDS: MULTIVITAMIN (BEROCCA) TABLET PO SCH (08:24)
[2019-08-07] MEDS: carvediloL 6.25 MG TABLET PO SCH ×2 (08:24→20:31)
[2019-08-07] MEDS: HEPARIN DRIP 25,000 UNITS/500 ML PREMIX IV SCH ×2 (13:13→15:46)
[2019-08-07] MEDS: LINEZOLID INJ 600 MG in PREMIX 1 EACH IV SCH (13:16)
[2019-08-07] MEDS: DEXAMETHASONE 4 MG/1 ML VIAL IV SCH (16:50)
[2019-08-07] MEDS: INSULIN GLARGINE 100 UNIT/ML SUBCUT SCH (20:31)
[2019-08-07] MEDS: ROSUVASTATIN 20 MG TABLET PO SCH (20:31)
[2019-08-07] MEDS: FLUCONAZOLE INJ 200 MG in PREMIX 1 EACH IV SCH (20:36)
[2019-08-07] MEDS: COLISTIMETHATE 150 MG in SODIUM CHLORIDE 0.9% 100 ML IV SCH (22:30)
[2019-08-08] MEDS: LINEZOLID INJ 600 MG in PREMIX 1 EACH IV SCH ×2 (00:30→13:00)
[2019-08-08] MEDS: INSULIN LISPRO 100 UNIT/ML SUBCUT SCH ×4 (01:25→18:06)
[2019-08-08] MEDS: PANTOPRAZOLE 40 MG VIAL IV SCH (01:55)
[2019-08-08] MEDS: hydrALAZINE 25 MG TABLET PO SCH ×4 (02:30→19:30)
[2019-08-08 04:24] LABS: Allen Test Positive; Pt O2 Delivery Device Ventilator
[2019-08-08 04:25] LABS: ABG Base Excess -3.4 MMOL/L (-2.5-2.5); ABG HCO3 21.7 MMOL/L (20-26); ABG PH 7.363 (7.35-7.45); ABG TCO2 22.9 MMOL/L (23-27)
[2019-08-08 04:27] LABS: ABG PO2 40.2 MM HG (80-95)
[2019-08-08 05:07] LABS: Basophils % 0.1 % (0.0-0.8); Hematocrit 21.6 VOL% (35.7-47.0); Hemoglobin 6.8 GM/DL (12.0-16.0); Immature Granulocytes % 1.3 %; Immature Granulocytes Absolute 0.29 #; Lymphocytes # 0.2 10*3/uL (1.4-4.0); Mean Corpuscular HGB Conc 31.5 GM/DL (32-36); Mean Corpuscular Volume 93.9 FL (87-102); Mean Platelet Volume 12.2 FL (9.6-12.0); Monocytes % 2.3 % (1.7-12.7); NRBC # 0.04 10*3/uL; Neutrophils % 95.3 % (38.7-73.9); Platelet Count 136 T/CUMM (130-400); Red Cell Distribution Width 17.8 % (9.3-17.3); White Blood Count 21.8 T/CUMM (4-12)
[2019-08-08 05:29] LABS: Calcium 6.8 MG/DL (8.5-10.1); Osmolality,Calculated 302.5 MOS/KG (273-304)
[2019-08-08 06:12] LABS: Anisocytosis 2+; Hypochromasia 2+; Lymphocytes 1 % (20-55); Microcytosis 1+; Platelet Estimate Decreased; Segmented Neutrophils 98 % (50-85); Total Cells Counted 100
[2019-08-08 06:13] LABS: Polychromasia Few; Target Cells Few
[2019-08-08] MEDS: ZINC OXIDE PASTE 113 GM TUBE TOP SCH ×2 (08:15→22:14)
[2019-08-08] MEDS: carvediloL 6.25 MG TABLET PO SCH ×2 (08:15→22:14)
[2019-08-08] MEDS: MULTIVITAMIN (BEROCCA) TABLET PO SCH (08:15)
[2019-08-08] MEDS: fentaNYL 25 MCG/HR PATCH TRANSDERM SCH (08:15)
[2019-08-08] MEDS: amLODIPine 10 MG TABLET PO SCH (08:15)
[2019-08-08] MEDS ORDERED: SODIUM CHLORIDE 0.9% 1,000 ML IV PRN (08:53)
[2019-08-08] MEDS ORDERED: SODIUM POLYSTYRENE SULFATE 15 GM/60 ML BOTTLE PO STA (10:51)
[2019-08-08] MEDS: HEPARIN DRIP 25,000 UNITS/500 ML PREMIX IV SCH (12:02)
[2019-08-08] MEDS: FLUCONAZOLE INJ 200 MG in PREMIX 1 EACH IV SCH (21:15)
[2019-08-08 22:08] LABS: Hematocrit 21.4 VOL% (35.7-47.0)
[2019-08-08 22:11] LABS: Hemoglobin 6.4 GM/DL (12.0-16.0)
[2019-08-08] MEDS: INSULIN GLARGINE 100 UNIT/ML SUBCUT SCH (22:13)
[2019-08-08] MEDS: ROSUVASTATIN 20 MG TABLET PO SCH (22:14)
[2019-08-09] MEDS: INSULIN LISPRO 100 UNIT/ML SUBCUT SCH ×4 (00:13→19:09)
[2019-08-09] MEDS: LINEZOLID INJ 600 MG in PREMIX 1 EACH IV SCH ×2 (00:40→15:57)
[2019-08-09] MEDS: hydrALAZINE 25 MG TABLET PO SCH ×4 (01:36→21:01)
[2019-08-09] MEDS: PANTOPRAZOLE 40 MG VIAL IV SCH (01:42)
[2019-08-09 04:02] LABS: VBG Base Excess -5.6 MEQ/L (0-4); VBG HCO3 19.3 MEQ/L (24-28); VBG Oxygen Saturation 57.6 %; VBG PCO2 42.1 MMHG (41-51); VBG PH 7.295; VBG PO2 36.8 MMHG (17-40)
[2019-08-09 04:27] LABS: Basophils % 0.1 % (0.0-0.8); Eosinophils # 0.1 10*3/uL (0.0-0.87); Eosinophils % 0.6 % (0.00-10.9); Hematocrit 20.9 VOL% (35.7-47.0); Hemoglobin 6.5 GM/DL (12.0-16.0); Immature Granulocytes % 0.8 %; Immature Granulocytes Absolute 0.09 #; Lymphocytes # 0.4 10*3/uL (1.4-4.0); Lymphocytes % 3.1 % (21.3-54.2); Mean Corpuscular HGB Conc 31.1 GM/DL (32-36); Mean Platelet Volume 12.4 FL (9.6-12.0); Monocytes % 2.5 % (1.7-12.7); NRBC # 0.07 10*3/uL; Neutrophils % 92.9 % (38.7-73.9); Platelet Count 146 T/CUMM (130-400); White Blood Count 11.3 T/CUMM (4-12)
[2019-08-09 05:04] LABS: Calcium 6.4 MG/DL (8.5-10.1); Osmolality,Calculated 295.8 MOS/KG (273-304)
[2019-08-09 05:05] LABS: Band Neutrophils 3 % (0-10); Hypochromasia Slight; Lymphocytes 4 % (20-55); Microcytosis 1+; Myelocytes 1 %; Nucleated Red Blood Cells 2 (0-5); Platelet Estimate Adequate; Segmented Neutrophils 88 % (50-85); Total Cells Counted 100
[2019-08-09 05:21] LABS: CKMB % 0.8 %
[2019-08-09 07:23] LABS: INR 1.1; PT Patient Result 12.1 SECS (9.8-11.9)
[2019-08-09 07:35] LABS: Partial Thromboplastin Time > 211.8 SECS (23.9-33.8)
[2019-08-09] MEDS ORDERED: AMIKACIN 300 MG in SODIUM CHLORIDE 0.9% 100 ML IV PRN (08:13)
[2019-08-09] MEDS: MULTIVITAMIN (BEROCCA) TABLET PO SCH (08:21)
[2019-08-09] MEDS: ZINC OXIDE PASTE 113 GM TUBE TOP SCH ×2 (08:22→20:30)
[2019-08-09] MEDS: carvediloL 6.25 MG TABLET PO SCH ×2 (10:10→21:02)
[2019-08-09] MEDS: amLODIPine 10 MG TABLET PO SCH (10:10)
[2019-08-09] MEDS ORDERED: CLINDAMYCIN INJ 900 MG in PREMIX 1 EACH IV ONE (11:03)
[2019-08-09 12:09] LABS: Hematocrit 25.5 VOL% (35.7-47.0); Hemoglobin 7.8 GM/DL (12.0-16.0)
[2019-08-09] MEDS: ROSUVASTATIN 20 MG TABLET PO SCH (20:30)
[2019-08-09] MEDS: INSULIN GLARGINE 100 UNIT/ML SUBCUT SCH (20:30)
[2019-08-09] MEDS: FLUCONAZOLE INJ 200 MG in PREMIX 1 EACH IV SCH (20:30)
[2019-08-10] MEDS: LINEZOLID INJ 600 MG in PREMIX 1 EACH IV SCH ×3 (00:04→23:07)
[2019-08-10] MEDS: INSULIN LISPRO 100 UNIT/ML SUBCUT SCH ×4 (00:35→18:05)
[2019-08-10] MEDS: PANTOPRAZOLE 40 MG VIAL IV SCH (00:36)
[2019-08-10] MEDS: hydrALAZINE 25 MG TABLET PO SCH ×4 (00:36→18:37)
[2019-08-10] MEDS ORDERED: NOREPINEPHRINE 4 MG/4 ML VIAL IV ONE (03:21)
[2019-08-10] MEDS: NOREPINEPHRINE 8 MG in SODIUM CHLORIDE 0.9% 242 ML IV PRN ×3 (03:26→19:50)
[2019-08-10 03:48] LABS: ABG Base Excess -7.7 MMOL/L (-2.5-2.5); ABG HCO3 19.1 MMOL/L (20-26); ABG Oxygen Saturation 87.5 % (95-100); ABG PCO2 45.2 MM HG (35-48); ABG PH 7.243 (7.35-7.45); ABG PO2 62.5 MM HG (80-95); ABG TCO2 20.5 MMOL/L (23-27)
[2019-08-10 04:07] LABS: ABG Base Excess -7.6 MMOL/L (-2.5-2.5); ABG HCO3 18.6 MMOL/L (20-26); ABG Oxygen Saturation 97.3 % (95-100); ABG PCO2 40.4 MM HG (35-48); ABG PO2 106.6 MM HG (80-95); ABG TCO2 19.8 MMOL/L (23-27)
[2019-08-10 04:28] LABS: Basophils % 0.2 % (0.0-0.8); Eosinophils # 0.1 10*3/uL (0.0-0.87); Eosinophils % 0.7 % (0.00-10.9); Hematocrit 23.1 VOL% (35.7-47.0); Immature Granulocytes % 1.4 %; Immature Granulocytes Absolute 0.21 #; Lymphocytes # 0.3 10*3/uL (1.4-4.0); Lymphocytes % 1.9 % (21.3-54.2); Mean Corpuscular HGB Conc 30.3 GM/DL (32-36); Mean Corpuscular Volume 95.5 FL (87-102); Mean Platelet Volume 12.7 FL (9.6-12.0); Monocytes % 1.7 % (1.7-12.7); NRBC # 0.11 10*3/uL; Neutrophils % 94.1 % (38.7-73.9); Platelet Count 128 T/CUMM (130-400); Red Blood Count 2.42 MC/CUMM (3.8-5.5); Red Cell Distribution Width 17.7 % (9.3-17.3); White Blood Count 15.3 T/CUMM (4-12)
[2019-08-10 04:53] LABS: Calcium 6.6 MG/DL (8.5-10.1); Osmolality,Calculated 297.7 MOS/KG (273-304); Prealbumin 9.6 MG/DL (20-40)
[2019-08-10 05:06] LABS: Band Neutrophils 7 % (0-10); Eosinophils 1 % (0-10); Lymphocytes 3 % (20-55); Metamyelocytes 1 %; Nucleated Red Blood Cells 1 (0-5); Segmented Neutrophils 83 % (50-85); Total Cells Counted 100
[2019-08-10 05:07] LABS: Hypochromasia 1+; Microcytosis 1+; Platelet Estimate Adequate
[2019-08-10] MEDS: ZINC OXIDE PASTE 113 GM TUBE TOP SCH ×2 (08:40→20:23)
[2019-08-10] MEDS: MULTIVITAMIN (BEROCCA) TABLET PO SCH (08:40)
[2019-08-10] MEDS: carvediloL 6.25 MG TABLET PO SCH ×2 (08:40→20:23)
[2019-08-10] MEDS: amLODIPine 10 MG TABLET PO SCH (08:40)
[2019-08-10] MEDS: ACETAMINOPHEN 325 MG TABLET PO PRN (12:12)
[2019-08-10] MEDS ORDERED: BUPIVACAINE MPF 0.25% 30 ML VIAL ONE (12:17)
[2019-08-10] MEDS ORDERED: LIDOCAINE 1%/EPI INJ 20 ML VIAL ONE (12:17)
[2019-08-10] MEDS ORDERED: HEPARIN 5,000 UNIT/1 ML VIAL ONE (12:17)
[2019-08-10] MEDS ORDERED: DEXTROSE 50% 25 GM/50 ML VIAL IV STA (12:41)
[2019-08-10 15:06] LABS: Hepatitis B Core IgM Quant 0.24 Index; Hepatitis B Surface Ag Quant < 0.10 Index; Hepatitis B Surface Ag Result Negative (Negative); Hepatitis C Virus Ab Quant 0.15 Index; Hepatitis C Virus Ab Result Negative (Negative)
[2019-08-10] MEDS ORDERED: EPOETIN ALFA-EPBX 10,000 UNIT/ML VIAL IV PRN (15:51)
[2019-08-10] MEDS ORDERED: ALBUMIN 25% 25 GM in PREMIX 1 EACH IV PRN (15:52)
[2019-08-10] MEDS: FLUCONAZOLE INJ 200 MG in PREMIX 1 EACH IV SCH (20:23)
[2019-08-10] MEDS: ROSUVASTATIN 20 MG TABLET PO SCH (20:23)
[2019-08-10] MEDS: COLISTIMETHATE 150 MG in SODIUM CHLORIDE 0.9% 100 ML IV SCH (20:27)
[2019-08-10] MEDS ORDERED: AMIKACIN 500 MG in SODIUM CHLORIDE 0.9% 100 ML IV ONE (21:00)
[2019-08-11] MEDS: DEXTROSE 10% 250 ML BAG IV PRN ×2 (00:01→06:00)
[2019-08-11] MEDS: INSULIN LISPRO 100 UNIT/ML SUBCUT SCH ×4 (00:54→17:23)
[2019-08-11] MEDS: PANTOPRAZOLE 40 MG VIAL IV SCH (01:30)
[2019-08-11] MEDS: hydrALAZINE 25 MG TABLET PO SCH ×4 (02:35→21:12)
[2019-08-11] MEDS: NOREPINEPHRINE 8 MG in SODIUM CHLORIDE 0.9% 242 ML IV PRN ×2 (04:30→13:10)
[2019-08-11 05:00] LABS: Basophils % 0.2 % (0.0-0.8); Eosinophils # 0.2 10*3/uL (0.0-0.87); Eosinophils % 1.4 % (0.00-10.9); Hematocrit 22.1 VOL% (35.7-47.0); Immature Granulocytes % 1.2 %; Immature Granulocytes Absolute 0.21 #; Lymphocytes # 0.4 10*3/uL (1.4-4.0); Lymphocytes % 2.1 % (21.3-54.2); Mean Corpuscular HGB Conc 31.7 GM/DL (32-36); Mean Corpuscular Volume 92.9 FL (87-102); Mean Platelet Volume 12.5 FL (9.6-12.0); Monocytes % 3.1 % (1.7-12.7); NRBC # 0.06 10*3/uL; Platelet Count 119 T/CUMM (130-400); Red Blood Count 2.38 MC/CUMM (3.8-5.5); Red Cell Distribution Width 17.6 % (9.3-17.3); White Blood Count 16.8 T/CUMM (4-12)
[2019-08-11 05:22] LABS: Albumin 0.8 G/DL (3.4-5.0); Bilirubin,Total 0.4 MG/DL (0.2-1.0); Calcium 7.4 MG/DL (8.5-10.1); Osmolality,Calculated 287.4 MOS/KG (273-304)
[2019-08-11 05:43] LABS: Band Neutrophils 13 % (0-10); Eosinophils 2 % (0-10); Lymphocytes 1 % (20-55); Metamyelocytes 1 %; Microcytosis 1+; Nucleated Red Blood Cells 1 (0-5); Polychromasia Slight; Segmented Neutrophils 82 % (50-85); Total Cells Counted 100
[2019-08-11 05:44] LABS: Hypochromasia 1+; Platelet Estimate Adequate
[2019-08-11] MEDS: ZINC OXIDE PASTE 113 GM TUBE TOP SCH ×2 (09:31→21:15)
[2019-08-11] MEDS: carvediloL 6.25 MG TABLET PO SCH ×2 (09:31→21:14)
[2019-08-11] MEDS: amLODIPine 10 MG TABLET PO SCH (09:31)
[2019-08-11] MEDS: MULTIVITAMIN (BEROCCA) TABLET PO SCH (09:31)
[2019-08-11] MEDS: fentaNYL 25 MCG/HR PATCH TRANSDERM SCH (09:31)
[2019-08-11] MEDS: ACETAMINOPHEN 325 MG TABLET PO PRN ×2 (09:32→22:33)
[2019-08-11] MEDS: DEXTROSE 10% 1,000 ML IV SCH (09:50)
[2019-08-11] MEDS: LINEZOLID INJ 600 MG in PREMIX 1 EACH IV SCH ×2 (11:51→22:55)
[2019-08-11] MEDS ORDERED: NOREPINEPHRINE 4 MG/4 ML VIAL IV ONE (12:59)
[2019-08-11] MEDS: ROSUVASTATIN 20 MG TABLET PO SCH (21:13)
[2019-08-12] MEDS: PANTOPRAZOLE 40 MG VIAL IV SCH (01:42)
[2019-08-12] MEDS: INSULIN LISPRO 100 UNIT/ML SUBCUT SCH ×4 (01:42→19:10)
[2019-08-12] MEDS: hydrALAZINE 25 MG TABLET PO SCH ×4 (01:43→20:15)
[2019-08-12 04:47] LABS: Allen Test Positive; Pt O2 Delivery Device Ventilator
[2019-08-12 04:48] LABS: ABG Base Excess -4.5 MMOL/L (-2.5-2.5); ABG HCO3 20.6 MMOL/L (20-26); ABG Oxygen Saturation 94.5 % (95-100); ABG PCO2 29.4 MM HG (35-48); ABG PH 7.426 (7.35-7.45); ABG PO2 62.5 MM HG (80-95); ABG TCO2 18.7 MMOL/L (23-27)
[2019-08-12] MEDS: carvediloL 6.25 MG TABLET PO SCH ×2 (08:35→20:17)
[2019-08-12] MEDS: MULTIVITAMIN (BEROCCA) TABLET PO SCH (08:35)
[2019-08-12] MEDS: ZINC OXIDE PASTE 113 GM TUBE TOP SCH ×2 (08:38→20:17)
[2019-08-12] MEDS: amLODIPine 10 MG TABLET PO SCH (08:38)
[2019-08-12] MEDS: ACETAMINOPHEN 325 MG TABLET PO PRN (08:59)
[2019-08-12] MEDS: NOREPINEPHRINE 8 MG in SODIUM CHLORIDE 0.9% 242 ML IV PRN ×2 (09:31→15:15)
[2019-08-12] MEDS ORDERED: HEPARIN 10,000 UNIT/10 ML VIAL IV SCH (11:30)
[2019-08-12] MEDS ORDERED: FLUCONAZOLE INJ 200 MG in PREMIX 1 EACH IV SCH (12:00)
[2019-08-12] MEDS: LINEZOLID INJ 600 MG in PREMIX 1 EACH IV SCH (12:25)
[2019-08-12 13:18] LABS: Basophils % 0.2 % (0.0-0.8); Eosinophils # 0.3 10*3/uL (0.0-0.87); Eosinophils % 1.7 % (0.00-10.9); Hematocrit 20.3 VOL% (35.7-47.0); Immature Granulocytes % 0.9 %; Immature Granulocytes Absolute 0.18 #; Lymphocytes # 0.4 10*3/uL (1.4-4.0); Lymphocytes % 2.1 % (21.3-54.2); Mean Corpuscular HGB Conc 29.6 GM/DL (32-36); Mean Corpuscular Volume 99.5 FL (87-102); Mean Platelet Volume 12.1 FL (9.6-12.0); Monocytes % 2.5 % (1.7-12.7); NRBC # 0.05 10*3/uL; Neutrophils % 92.6 % (38.7-73.9); Platelet Count 108 T/CUMM (130-400); Red Blood Count 2.04 MC/CUMM (3.8-5.5); Red Cell Distribution Width 17.9 % (9.3-17.3); White Blood Count 19.4 T/CUMM (4-12)
[2019-08-12] MEDS ORDERED: SODIUM CHLORIDE 0.9% 1,000 ML IV PRN (13:26)
[2019-08-12 13:28] LABS: Albumin 1.3 G/DL (3.4-5.0); Bilirubin,Total 0.5 MG/DL (0.2-1.0); Calcium 7.5 MG/DL (8.5-10.1); Osmolality,Calculated 277.4 MOS/KG (273-304); Total Protein 5.1 G/DL (6.4-8.3)
[2019-08-12] MEDS ORDERED: POTASSIUM CHLORIDE 20 MEQ/15 ML UDCUP PER TUBE ONE (13:49)
[2019-08-12 14:12] LABS: Band Neutrophils 4 % (0-10); Eosinophils 2 % (0-10); Hypochromasia 1+; Lymphocytes 5 % (20-55); Platelet Estimate Adequate; Segmented Neutrophils 89 % (50-85)
[2019-08-12 14:13] LABS: Macrocytosis Slight; Total Cells Counted 100
[2019-08-12] MEDS ORDERED: AMIKACIN 300 MG in SODIUM CHLORIDE 0.9% 100 ML IV ONE (15:00)
[2019-08-12 16:14] LABS: ABG Base Excess -2.9 MMOL/L (-2.5-2.5); ABG HCO3 22.4 MMOL/L (20-26); ABG Oxygen Saturation 95.3 % (95-100); ABG PCO2 40.9 MM HG (35-48); ABG PH 7.356 (7.35-7.45); ABG PO2 81.4 MM HG (80-95); ABG TCO2 23.6 MMOL/L (23-27); Pt O2 Delivery Device Ventilator
[2019-08-12 19:16] VITALS: BP 123/49
[2019-08-12] MEDS: COLISTIMETHATE 150 MG in SODIUM CHLORIDE 0.9% 100 ML IV SCH (20:16)
[2019-08-12] MEDS: DEXTROSE 10% 1,000 ML IV SCH (20:16)
[2019-08-12] MEDS: ROSUVASTATIN 20 MG TABLET PO SCH (20:17)
== END 2019-08-12 19:43 | disposition expired | DRG 4 ==
LOC: N.CC 23:11 → SUATTDRO 23:11
PROVIDERS: ADMIT Internal Medicine; ATTEND Family Medicine